=== PATIENT | female | born 1970 | race Caucasian/White ===

== ENCOUNTER → 2017-04-11 08:58 | Outpatient (CLI) | payer MEDICARE, SELFPAY ==
[2017-04-11 10:49] LABS: Hematocrit 50.9 % (37-47); Hemoglobin 16.9 g/dl (12.0-15.0); Mean Corp Hgb Conc 33.2 g/gl (32-36); Mean Corpuscular Hgb 32.6 pg (27.0-32.0); Mean Corpuscular Volume 98.3 fL (81-99); Platelet Count 154 K/mm3 (150-450); RBC Distribution Width CV 14.4 % (11.6-14.6); RBC Distribution Width SD 51.5 fl (35.1-43.9); Red Blood Count 5.18 M/mm3 (4.2-5.4); White Blood Count 7.1 K/mm3 (4.4-11.0)
[2017-04-11 10:51] LABS: Scan Indicated on CBC? Y/N NO
[2017-04-11 11:01] LABS: Vitamin B12 649 pg/mL (211-911); Vitamin D,25 Hydroxy 19.9 ng/mL (19.95-100.01)
[2017-04-11 11:17] LABS: ALB/GLOB Ratio 1.4 RATIO (0.9-2.4); AST(SGOT) 12 U/L (15-37); Alanine Aminotransfer ALT/SGPT 18 U/L (13-56); Albumin, Serum 3.9 g/dL (3.2-5.0); Alkaline Phosphatase 68 U/L (45-117); Anion Gap 10 (5-15); BUN 9 mg/dL (7-18); BUN/Creat Ratio 11.8 RATIO (10-20); Calcium,Total 8.5 mg/dL (8.5-10.1); Chloride 106 mmol/L (98-107); Creatinine, Serum 0.76 mg/dL (0.55-1.02); EST Glomerular Filtration Rate 86 mL/min (>60); Est Glom Filt Rate - Afr Amer 104 mL/min (>60); Globulin 2.8 g/dL (2.2-4.2); Glucose 77 mg/dL (74-106); Potassium 4.5 mmol/L (3.5-5.1); Protein, Total 6.7 g/dL (6.4-8.2); Sodium Level 142 mmol/L (136-145)
[2017-04-12 10:54] LABS: Free T3 2.9 pg/mL (2.18-3.98); T4 Free Direct 0.78 ng/dL (0.76-1.46)
== END ==
PROVIDERS: Family Provider Family Medicine; PCP Family Medicine; Visit Provider Internal Medicine Endocrinology, Diabetes & Metabolism
DX: E05.90 Thyrotoxicosis, unspecified without thyrotoxic crisis or storm (principal); E03.9 Hypothyroidism, unspecified; E53.8 Deficiency of other specified B group vitamins; E55.9 Vitamin D deficiency, unspecified; M79.7 Fibromyalgia
CPT/HCPCS: 36415; 80053; 82306; 82607; 84439; 84443; 84481; 85027

== ENCOUNTER → 2017-05-24 09:37 | Outpatient (CLI) | payer MEDICARE, SELFPAY ==
[2017-05-24 12:15] LABS: Absolute Lymphocyte Count 3.03 X10^3/ul (0.83-4.51); Absolute Neutrophil Count 6.4 X10^3/uL (2.0-7.7); Basophil# 0.04 X10^3/uL; Basophil% 0.4 % (0-1); Eosinophil# 0.04 X10^3/uL; Eosinophils% 0.4 % (0-5); Hematocrit 42.7 % (37-47); Hemoglobin 14.6 g/dl (12.0-15.0); Lymphocyte # 3.03 X10^3/ul (4.0); Lymphocyte % 30.7 % (19-41); Mean Corp Hgb Conc 34.2 g/gl (32-36); Mean Corpuscular Hgb 33.5 pg (27.0-32.0); Mean Corpuscular Volume 97.9 fL (81-99); Monocyte# 0.34 X10^3/uL; Monocyte% 3.4 % (0-10); Neutrophil % 64.9 % (47-70); Platelet Count 285 K/mm3 (150-450); RBC Distribution Width CV 13.5 % (11.6-14.6); RBC Distribution Width SD 47.6 fl (35.1-43.9); Red Blood Count 4.36 M/mm3 (4.2-5.4); White Blood Count 9.9 K/mm3 (4.4-11.0)
[2017-05-24 12:16] LABS: POSITIVE COUNT NO; POSITIVE DIFFERENTIAL NO; POSITIVE MORPHOLOGY NO
[2017-05-24 12:37] LABS: T4 Free Direct 1.04 ng/dL (0.76-1.46); Thyroid Stim Hormone (TSH) 0.68 uIU/mL (0.358-3.74)
== END ==
PROVIDERS: Family Provider Family Medicine; PCP Family Medicine; Visit Provider Internal Medicine Endocrinology, Diabetes & Metabolism
DX: E05.90 Thyrotoxicosis, unspecified without thyrotoxic crisis or storm (principal)
CPT/HCPCS: 36415; 84439; 84443; 84481; 85025

== ENCOUNTER → 2017-07-11 09:26 | Outpatient (CLI) | payer MEDICARE, SELFPAY ==
[2017-07-11 10:08] LABS: Absolute Lymphocyte Count 2.74 X10^3/ul (0.83-4.51); Absolute Neutrophil Count 4.4 X10^3/uL (2.0-7.7); Basophil# 0.02 X10^3/uL; Basophil% 0.3 % (0-1); Eosinophil# 0.08 X10^3/uL; Eosinophils% 1.1 % (0-5); Hematocrit 44.5 % (37-47); Hemoglobin 14.7 g/dl (12.0-15.0); Lymphocyte # 2.74 X10^3/ul (4.0); Lymphocyte % 36.9 % (19-41); Mean Corpuscular Hgb 32.1 pg (27.0-32.0); Mean Corpuscular Volume 97.2 fL (81-99); Mean Platelet Vol. 8.6 fl (6.2-12.0); Monocyte# 0.23 X10^3/uL; Monocyte% 3.1 % (0-10); Neutrophil # 4.35 X10^3/uL (2.7-7.7); Neutrophil % 58.6 % (47-70); Platelet Count 221 K/mm3 (150-450); RBC Distribution Width CV 12.9 % (11.6-14.6); RBC Distribution Width SD 45.7 fl (35.1-43.9); Red Blood Count 4.58 M/mm3 (4.2-5.4); White Blood Count 7.4 K/mm3 (4.4-11.0)
[2017-07-11 10:09] LABS: POSITIVE COUNT NO; POSITIVE DIFFERENTIAL NO; POSITIVE MORPHOLOGY NO
[2017-07-11 10:59] LABS: ALB/GLOB Ratio 1.1 RATIO (0.9-2.4); AST(SGOT) 14 U/L (15-37); Alanine Aminotransfer ALT/SGPT 13 U/L (13-56); Albumin, Serum 4.2 g/dL (3.2-5.0); Alkaline Phosphatase 67 U/L (45-117); Anion Gap 7 (5-15); BUN 6 mg/dL (7-18); BUN/Creat Ratio 7.7 RATIO (10-20); Chloride 107 mmol/L (98-107); Creatinine, Serum 0.78 mg/dL (0.55-1.02); EST Glomerular Filtration Rate 84 mL/min (>60); Est Glom Filt Rate - Afr Amer 102 mL/min (>60); Globulin 3.7 g/dL (2.2-4.2); Glucose 93 mg/dL (74-106); Protein, Total 7.9 g/dL (6.4-8.2); Sodium Level 141 mmol/L (136-145); T4 Free Direct 0.95 ng/dL (0.76-1.46); Thyroid Stim Hormone (TSH) 0.76 uIU/mL (0.358-3.74)
== END ==
PROVIDERS: Family Provider Family Medicine; PCP Family Medicine; Visit Provider Internal Medicine Endocrinology, Diabetes & Metabolism
DX: E05.90 Thyrotoxicosis, unspecified without thyrotoxic crisis or storm (principal)
CPT/HCPCS: 36415; 80053; 84439; 84443; 84481; 85025

== ENCOUNTER → 2017-08-17 09:34 | Outpatient (CLI) | payer MEDICARE, SELFPAY ==
--- NOTE | 2017-08-17 09:36 | MRI_ITS ---
STUDY: MRI LUMBAR SPINE WITHOUT CONTRAST REASON FOR EXAM: Female, 46 years old. Back pain and bilateral leg pain with numbness and tingling. TECHNIQUE: Standardized fat and water weighted pulse sequences were obtained in the sagittal and axial planes. COMPARISON: None FINDINGS: T11-T12: (Sagittal only). Normal endplates. Normal disc height, hydration and morphology. Normal central canal and bilateral intervertebral neural foramina. T12-L1: (Sagittal only). Normal endplates. Normal disc height, hydration and morphology. Normal central canal and bilateral intervertebral neural foramina. Normal lumbar lordosis. There is no substantial scoliosis. Normal conus medullaris that terminates at the lower L1 vertebral body level. L1-2: Anterior marginal spurs. Normal endplates. Normal disc height, hydration and morphology. Normal central canal and bilateral lateral recesses. Normal facet joints. Normal bilateral intervertebral neural foramina. L2-3: Normal endplates. Normal disc height, hydration and morphology. Normal bilateral facet joints. Normal central canal and bilateral lateral recesses. Normal bilateral intervertebral neural foramina. L3-4: Normal endplates. Normal disc height, hydration and morphology. Normal bilateral facet joints. Normal central canal and bilateral lateral recesses. Normal bilateral intervertebral neural foramina. L4-5: Normal endplates. Normal disc height, hydration and morphology. Normal bilateral facet joints. Normal central canal and bilateral lateral recesses. Normal bilateral intervertebral neural foramina. L5-S1: Pronounced disc space height narrowing. Mild Modic type I degenerative vertebral marrow edema underneath the posterior aspect of the vertebral endplates. Nearly grade 1 degenerative retrolisthesis of L5 on S1. Normal central canal. Normal bilateral lateral recesses. Mild asymmetric degenerative facet arthropathy. Normal bilateral intervertebral neural foramina. Normal visualized sacral ala. 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 Normal visualized paraspinous soft tissue structures. MRI/Spine Lumbar (Routine) IMPRESSION: 1. Pronounced L5-S1 disc space height narrowing with mild Modic type I degenerative vertebral marrow edema underneath the posterior aspect of the vertebral endplates and nearly grade 1 degenerative retrolisthesis of L5 on S1. 2. No MRI evidence of lumbar extruded disc fragment or spinal stenosis. 3. Signal dropout artifact in the posterior epidural space at the T11-T12 disc level and above. This is presumably an epidural wire device used for pain control. Electronically Signed: Stephane Gates MD at 14:50 EDT , Service support ,
== END ==
PROVIDERS: Family Provider Family Medicine; PCP Family Medicine; Visit Provider Anesthesiology Pain Medicine
DX: M48.07 Spinal stenosis, lumbosacral region (principal); M51.37 Other intervertebral disc degeneration, lumbosacral region
CPT/HCPCS: 72148

== ENCOUNTER 2017-11-07 10:22 | Emergency (ER) | payer MEDICARE, SELFPAY ==
[2017-11-07 10:23] VITALS: BP 119/68; PULSE 86; RESP 17; TEMP 37.1; O2SAT 97; BMI 23.5
--- NOTE | 2017-11-07 10:39 | ED.VISSUMM ---
- ER Visit Summary Date of Service: 11/07/17 Chief Complaint: Rash and itching. History of Present Illness: The patient is a 47 F states she believes she was bitten by X. For the last 2 weeks she has had intermittent rashes with itching. She also has painful raised rash on her right calf. She does shave her legs. She denies fever. She denies nausea, vomiting or anything like this before. She was seen by an urgent care and read placed on doxycycline in case this was secondary to a tick bite. She was also seen by her PCPs office and treated with Diflucan for vaginal yeast infection which she states is improving. Physical Examination: Well-appearing middle-age female. Vital signs are stable afebrile. She does not look septic toxic. She is no acute distress. H EENT exam unremarkable. Neck nontender no lymphadenopathy. Lungs clear to auscultation bilaterally. Heart regular rhythm no murmur. Abdomen soft nontender. Moving all 4 extremities. Neurovascular intact. On her right lateral calf there is red raised areas it could be a local allergic reaction to insect stings could also be infected hair follicles. There are no pustules. There is no lymphangitic streaking. It is not hot. She also has a rash on her left knee and anterior lower leg. In her right hand. Neurologically she is awake alert no focal deficits. Test Results: None Emergency Department Course and Treatment: The rash patient has is consistent with allergic reaction. There could also be infected hair follicles in her right calf. Treatment Plan: Treated with prednisone for the allergic reaction. Placed on Keflex for possible folliculitis. She will be referred to a local pipe fitter helper. Disposition: Discharge Impression: Acute rash secondary to allergic reaction Rule out folliculitis This note was generated with [employer] dictation software. It may contain incorrect words, spelling, and punctuation that were not noted in review of the chart prior to signing ED Disposition - Plan for ED Patient: Chief Complaint: Rash Referrals: Jim Panchal MD [Primary Care Provider] -
[2017-11-07 10:40] VITALS: BP 114/69; PULSE 80; RESP 14; TEMP 36.7; O2SAT 99
--- NOTE | 2017-11-07 10:42 | ED.DCSUM_ITS ---
- ER Visit Summary Date of Service: 11/07/17 Chief Complaint: Rash and itching. History of Present Illness: The patient is a 47 F states she believes she was bitten by X. For the last 2 weeks she has had intermittent rashes with itching. She also has painful raised rash on her right calf. She does shave her legs. She denies fever. She denies nausea, vomiting or anything like this before. She was seen by an urgent care and read placed on doxycycline in case this was secondary to a tick bite. She was also seen by her PCPs office and treated with Diflucan for vaginal yeast infection which she states is improving. Physical Examination: Well-appearing middle-age female. Vital signs are stable afebrile. She does not look septic toxic. She is no acute distress. H EENT exam unremarkable. Neck nontender no lymphadenopathy. Lungs clear to auscultation bilaterally. Heart regular rhythm no murmur. Abdomen soft nontender. Moving all 4 extremities. Neurovascular intact. On her right lateral calf there is red raised areas it could be a local allergic reaction to insect stings could also be infected hair follicles. There are no pustules. There is no lymphangitic streaking. It is not hot. She also has a rash on her left knee and anterior lower leg. In her right hand. Neurologically she is awake alert no focal deficits. Test Results: None Emergency Department Course and Treatment: The rash patient has is consistent with allergic reaction. There could also be infected hair follicles in her right calf. Treatment Plan: Treated with prednisone for the allergic reaction. Placed on Keflex for possible folliculitis. She will be referred to a local registration rep. Disposition: Discharge Impression: Acute rash secondary to allergic reaction Rule out folliculitis This note was generated with [employer] dictation software. It may contain incorrect words, spelling, and punctuation that were not noted in review of the chart prior to signing ED Disposition - Plan for ED Patient: Chief Complaint: Rash Referrals: Jim Panchal MD [Primary Care Provider] -
--- NOTE | 2017-11-07 10:42 | ED.DEP ---
ED Disposition - Plan for ED Patient: Disposition: Home or Assisted Living Chief Complaint: Rash Instructions: ED Bite Sting Insect Gen Allergic React Prescriptions: Cephalexin [Keflex] 500 mg PO Q6 10 Days cap Prednisone [Deltasone] 40 mg PO DAILY 7 Days tab Referrals: Jim Panchal MD [Primary Care Provider] - As Needed Vane To [NON-STAFF] - As soon as possible Additional Instructions: Rash is most likely secondary to allergic reaction. On her right lower leg disc redo infected hair follicles. For those reasons we will treat you both for an allergic reaction with the prednisone and for possible soft tissue infection with the Keflex. Follow-up with Dr. To the rubber vulcanizing machine operator.
[2017-11-07] MEDS: Cephalexin 250 MG Capsule 500 MG PO (10:53)
[2017-11-07] MEDS: predniSONE 20 MG Tablet 40 MG PO (10:54)
[2017-11-07 10:55] VITALS: BP 111/68; PULSE 76; RESP 14; O2SAT 98
== END 2017-11-07 11:02 | disposition home or self-care (01) ==
PROVIDERS: Emergency Provider Emergency Medicine; Family Provider Family Medicine; PCP Family Medicine
DX: T78.40XA Allergy, unspecified, initial encounter (principal); X58.XXXA Exposure to other specified factors, initial encounter; L73.9 Follicular disorder, unspecified; E03.9 Hypothyroidism, unspecified; Z79.899 Other long term (current) drug therapy; Z72.0 Tobacco use
CPT/HCPCS: 99283

== ENCOUNTER → 2017-11-22 13:24 | Outpatient (CLI) | payer MEDICARE, SELFPAY ==
--- NOTE | 2017-11-22 13:26 | RAD_ITS ---
STUDY: X-RAY - LUMBAR SPINE REASON FOR EXAM: Female, 47 years old. Low back pain TECHNIQUE: 4 view(s) of the lumbar spine were obtained. COMPARISON: None FINDINGS: Normal lumbar lordosis. There is no substantial scoliosis. There is a normal alignment of the vertebrae. There is a left sided subcutaneous implanted electronic device with leads extending into the spinal canal. This is likely an SCS (spinal cord stimulator). Loss of intervertebral disc height at L5-S1. Vacuum disc phenomenon at L5-S1. There is multilevel endplate spondylosis of the lumbar vertebrae. There is multi-level degenerative disc disease with multi-level disc space narrowing. There are atherosclerotic vascular calcifications. The soft tissue structures are unremarkable. RAD/L/S Spine Min 4 Views IMPRESSION: Degenerative changes of the spine, as detailed above. Electronically Signed: Marcin Greco MD at 17:02 EDT , Service support ,
== END ==
PROVIDERS: Family Provider Family Medicine; PCP Family Medicine; Referring Provider Orthopaedic Surgery; Visit Provider Orthopaedic Surgery
DX: M47.896 Other spondylosis, lumbar region (principal); M51.36 Other intervertebral disc degeneration, lumbar region
CPT/HCPCS: 72110

== ENCOUNTER → 2017-12-08 10:18 | Outpatient (CLI) | payer MEDICARE, SELFPAY ==
[2017-12-08 12:13] LABS: Absolute Lymphocyte Count 3.16 X10^3/ul (0.83-4.51); Absolute Neutrophil Count 4.4 X10^3/uL (2.0-7.7); Basophil# 0.03 X10^3/uL; Basophil% 0.4 % (0-1); Eosinophil# 0.13 X10^3/uL; Eosinophils% 1.6 % (0-5); Hematocrit 42.7 % (37-47); Hemoglobin 14.6 g/dl (12.0-15.0); Lymphocyte # 3.16 X10^3/ul (4.0); Lymphocyte % 38.9 % (19-41); Mean Corp Hgb Conc 34.2 g/gl (32-36); Mean Corpuscular Hgb 33.4 pg (27.0-32.0); Mean Corpuscular Volume 97.7 fL (81-99); Mean Platelet Vol. 8.5 fl (6.2-12.0); Monocyte# 0.36 X10^3/uL; Monocyte% 4.4 % (0-10); Neutrophil # 4.44 X10^3/uL (2.7-7.7); Neutrophil % 54.6 % (47-70); Platelet Count 291 K/mm3 (150-450); RBC Distribution Width CV 13.2 % (11.6-14.6); RBC Distribution Width SD 46.3 fl (35.1-43.9); Red Blood Count 4.37 M/mm3 (4.2-5.4); White Blood Count 8.1 K/mm3 (4.4-11.0)
[2017-12-08 12:28] LABS: POSITIVE COUNT NO; POSITIVE DIFFERENTIAL NO; POSITIVE MORPHOLOGY NO
[2017-12-08 12:29] LABS: ALB/GLOB Ratio 1.1 RATIO (0.9-2.4); AST(SGOT) 18 U/L (15-37); Alanine Aminotransfer ALT/SGPT 27 U/L (13-56); Alkaline Phosphatase 82 U/L (45-117); Anion Gap 8 (5-15); BUN 9 mg/dL (7-18); BUN/Creat Ratio 11.7 RATIO (10-20); Calcium,Total 8.9 mg/dL (8.5-10.1); Chloride 104 mmol/L (98-107); Creatinine, Serum 0.77 mg/dL (0.55-1.02); EST Glomerular Filtration Rate 85 mL/min (>60); Est Glom Filt Rate - Afr Amer 103 mL/min (>60); Free T3 3.6 pg/mL (2.18-3.98); Globulin 3.5 g/dL (2.2-4.2); Glucose 86 mg/dL (74-106); Potassium 4.1 mmol/L (3.5-5.1); Protein, Total 7.5 g/dL (6.4-8.2); Sodium Level 141 mmol/L (136-145); T4 Free Direct 0.86 ng/dL (0.76-1.46); Thyroid Stim Hormone (TSH) 1.16 uIU/mL (0.358-3.74)
[2017-12-08 12:31] LABS: Vitamin B12 805 pg/mL (211-911); Vitamin D,25 Hydroxy 17.8 ng/mL (29.95-100.01)
[2017-12-12 20:07] LABS: HCV Quant. RNA PCR HCV Not Detected IU/mL (.)
== END ==
PROVIDERS: Family Provider Family Medicine; PCP Family Medicine; Referring Provider Family Medicine; Visit Provider Family Medicine
DX: B19.20 Unspecified viral hepatitis C without hepatic coma (principal); E03.9 Hypothyroidism, unspecified; E53.8 Deficiency of other specified B group vitamins; E55.9 Vitamin D deficiency, unspecified
CPT/HCPCS: 80053; 82306; 82607; 84439; 84443; 84481; 85025; 87522

== ENCOUNTER → 2018-01-16 12:13 | Outpatient (CLI) | payer MEDICARE, SELFPAY ==
[2018-01-16 14:46] LABS: Absolute Lymphocyte Count 3.75 X10^3/ul (0.83-4.51); Absolute Neutrophil Count 3.6 X10^3/uL (2.0-7.7); Basophil# 0.02 X10^3/uL; Basophil% 0.3 % (0-1); Eosinophils% 1.3 % (0-5); Erythrocyte Sedimentation Rate 17 mm/hr (0-20); Hematocrit 40.4 % (37-47); Hemoglobin 13.6 g/dl (12.0-15.0); Lymphocyte # 3.75 X10^3/ul (4.0); Lymphocyte % 47.4 % (19-41); Mean Corp Hgb Conc 33.7 g/gl (32-36); Mean Corpuscular Hgb 32.3 pg (27.0-32.0); Mean Platelet Vol. 8.8 fl (6.2-12.0); Monocyte# 0.39 X10^3/uL; Monocyte% 4.9 % (0-10); Neutrophil # 3.64 X10^3/uL (2.7-7.7); Platelet Count 306 K/mm3 (150-450); RBC Distribution Width CV 12.5 % (11.6-14.6); Red Blood Count 4.21 M/mm3 (4.2-5.4); White Blood Count 7.9 K/mm3 (4.4-11.0)
[2018-01-16 14:47] LABS: POSITIVE COUNT NO; POSITIVE DIFFERENTIAL NO; POSITIVE MORPHOLOGY NO
[2018-01-16 15:17] LABS: ALB/GLOB Ratio 1.3 RATIO (0.9-2.4); AST(SGOT) 17 U/L (15-37); Alanine Aminotransfer ALT/SGPT 20 U/L (13-56); Albumin, Serum 4.1 g/dL (3.2-5.0); Alkaline Phosphatase 84 U/L (45-117); Anion Gap 8 (5-15); BUN 8 mg/dL (7-18); BUN/Creat Ratio 12.4 RATIO (10-20); CRP 7.73 mg/L (0.0-3.0); Calcium,Total 8.5 mg/dL (8.5-10.1); Chloride 106 mmol/L (98-107); Creatinine, Serum 0.64 mg/dL (0.55-1.02); EST Glomerular Filtration Rate 104 mL/min (>60); Est Glom Filt Rate - Afr Amer 126 mL/min (>60); Globulin 3.1 g/dL (2.2-4.2); Glucose 79 mg/dL (74-106); Protein, Total 7.2 g/dL (6.4-8.2); Sodium Level 140 mmol/L (136-145)
[2018-01-20 03:06] LABS: Alternaria alternata <0.10 kU/L (Class 0); Aspergillus fumigatus <0.10 kU/L (Class 0); Bahia Grass <0.10 kU/L (Class 0); Beef <0.10 kU/L (Class 0); Bermuda Grass <0.10 kU/L (Class 0); Bluegrass, Kentucky <0.10 kU/L (Class 0); Cat Hair/Dander, Standard <0.10 kU/L (Class 0); Cedar, Mountain <0.10 kU/L (Class 0); Cladosporium herbarum <0.10 kU/L (Class 0); Cockroach, American <0.10 kU/L (Class 0); Corn <0.10 kU/L (Class 0); D farinae Mite <0.10 kU/L (Class 0); D pteronyssinus <0.10 kU/L (Class 0); Dog Epithelia <0.10 kU/L (Class 0); Egg, Whole <0.10 kU/L (Class 0); Elm, American White <0.10 kU/L (Class 0); Hazelnut Tree <0.10 kU/L (Class 0); Hickory, White <0.10 kU/L (Class 0); Johnson Grass <0.10 kU/L (Class 0); Maple/Box Elder <0.10 kU/L (Class 0); Milk (Cow) <0.10 kU/L (Class 0); Mucor racemosus <0.10 kU/L (Class 0); Mugwort <0.10 kU/L (Class 0); Mulberry, White <0.10 kU/L (Class 0); Nettle <0.10 kU/L (Class 0); Oak, White <0.10 kU/L (Class 0); Peanut <0.10 kU/L (Class 0); Penicillium chrysogen <0.10 kU/L (Class 0); Pigweed, Rough <0.10 kU/L (Class 0); Plantain, English <0.10 kU/L (Class 0); Pork <0.10 kU/L (Class 0); Ragweed, Short/Common <0.10 kU/L (Class 0); Sheep Sorrel(Dock) <0.10 kU/L (Class 0); Soybean <0.10 kU/L (Class 0); Stemphylium herbarum <0.10 kU/L (Class 0); Sweet Gum <0.10 kU/L (Class 0); Sycamore, American <0.10 kU/L (Class 0); Wheat <0.10 kU/L (Class 0)
[2018-01-20 08:32] LABS: Chocolate <0.10 kU/L (Class 0)
== END ==
PROVIDERS: Family Provider Family Medicine; PCP Family Medicine; Visit Provider Family Medicine
DX: R21 Rash and other nonspecific skin eruption (principal); L29.9 Pruritus, unspecified
CPT/HCPCS: 36415; 80053; 85025; 85652; 86003; 86005; 86140

== ENCOUNTER → 2018-02-13 11:00 | Outpatient (CLI) | payer MEDICARE, SELFPAY ==
[2018-02-13 11:45] LABS: Absolute Lymphocyte Count 3.69 X10^3/ul (0.83-4.51); Absolute Neutrophil Count 5.6 X10^3/uL (2.0-7.7); Basophil# 0.03 X10^3/uL; Basophil% 0.3 % (0-1); Eosinophil# 0.14 X10^3/uL; Eosinophils% 1.4 % (0-5); Hematocrit 39.6 % (37-47); Hemoglobin 13.3 g/dl (12.0-15.0); Lymphocyte # 3.69 X10^3/ul (4.0); Lymphocyte % 36.9 % (19-41); Mean Corp Hgb Conc 33.6 g/gl (32-36); Mean Corpuscular Hgb 32.4 pg (27.0-32.0); Mean Corpuscular Volume 96.4 fL (81-99); Mean Platelet Vol. 8.3 fl (6.2-12.0); Neutrophil # 5.61 X10^3/uL (2.7-7.7); Neutrophil % 56.2 % (47-70); Platelet Count 295 K/mm3 (150-450); RBC Distribution Width SD 44.4 fl (35.1-43.9); Red Blood Count 4.11 M/mm3 (4.2-5.4)
[2018-02-13 11:46] LABS: POSITIVE COUNT NO; POSITIVE DIFFERENTIAL NO; POSITIVE MORPHOLOGY NO
[2018-02-13 12:17] LABS: T3 Total - Triiodothyronine 1.52 ng/mL (0.6-1.81)
[2018-02-13 12:28] LABS: ALB/GLOB Ratio 1.2 RATIO (0.9-2.4); AST(SGOT) 16 U/L (15-37); Alanine Aminotransfer ALT/SGPT 24 U/L (13-56); Albumin, Serum 3.7 g/dL (3.2-5.0); Alkaline Phosphatase 73 U/L (45-117); Anion Gap 10 (5-15); BUN 9 mg/dL (7-18); BUN/Creat Ratio 13.2 RATIO (10-20); Calcium,Total 8.3 mg/dL (8.5-10.1); Chloride 105 mmol/L (98-107); Creatinine, Serum 0.68 mg/dL (0.55-1.02); EST Glomerular Filtration Rate 98 mL/min (>60); Est Glom Filt Rate - Afr Amer 118 mL/min (>60); Globulin 3.2 g/dL (2.2-4.2); Glucose 79 mg/dL (74-106); Potassium 3.9 mmol/L (3.5-5.1); Protein, Total 6.9 g/dL (6.4-8.2); Sodium Level 142 mmol/L (136-145); T4 Free Direct 0.88 ng/dL (0.76-1.46); Thyroid Stim Hormone (TSH) 0.66 uIU/mL (0.358-3.74)
[2018-02-15 10:02] LABS: Free T3 4.1 pg/mL (2.18-3.98)
--- OUTSIDE RECORDS SUMMARY | 2018-05-18 00:16 | XMS RPT_ITS ---
:1970 Author Organization OHIP Support Name Relationship Address Phone D Unavailable Unavailable Unavailable JORGE, SUJANE Unavailable [address] + [place] [address] D Unavailable Unavailable Unavailable JORGE, SUJANE Unavailable [address] + [place] [address] D Unavailable Unavailable Unavailable JORGE, SUJANE Unavailable [address] + [place] [address] D Unavailable Unavailable Unavailable JROGE, SUJANE Unavailable [address] + [place] [address] D Unavailable Unavailable Unavailable JORGE, SUJANE Unavailable [address] + [place] [address] D Unavailable Unavailable Unavailable JORGE, SUJANE Unavailable [address] + [place] [address] D Unavailable Unavailable Unavailable JORGE, SUJANE Unavailable [address] + [place] [address] NONE Unavailable Unavailable + D Unavailable Unavailable Unavailable JORGE, SUJANE Unavailable [address] + [place] [address] D Unavailable Unavailable Unavailable JORGE, SUJANE Unavailable [address] + [place] [address] D Unavailable Unavailable Unavailable JORGE, SUJANE Unavailable [address] + [place] [address] Care Team Providers Name Role Phone PROVIDER, UNKNOWN Admitting Unavailable PROVIDER, UNKNOWN Attending Unavailable JIMBO JASSO Referring Unavailable Teagan Winston Attending Unavailable Teagan Winston Referring Unavailable Matty Panchal Primary Care Unavailable Teagan Winston Attending Unavailable Raghunathan, Teagan N. Referring Unavailable Ransan francisco, Christopher Primary Care Unavailable Raghunathan, Teagan N. Attending Unavailable Raghunathan, Teagan N. Referring Unavailable [facility]ansan francisco, [facility] Unavailable Raghunathan, Teagan N. Attending Unavailable Raghunathan, Teagan N. Referring Unavailable Ransan francisco, [facility] Unavailable Víctor Berkowitz Attending Unavailable Basalstephen, Ayman Referring Unavailable Ransan francisco, [facility] Unavailable Ransan francisco, [facility] Unavailable Bill Hernandez Attending Unavailable Lorraine Griffiths Attending Unavailable Ranney, Christmiraer Referring Unavailable Lorraine Griffiths Attending Unavailable Griffiths, Lorraine Referring Unavailable [facility] Unavailable Ranosmel, Christmiraer Attending Unavailable Ranney, Christopher Referring Unavailable Ransan francisco, [facility] Unavailable Ranosmel, Christmiraer Attending Unavailable Ransan francisco, [facility] Unavailable PROBLEMS PROBLEMS DATE TYPE CONDITION / CODE ATTENDING STATUS SOURCE 02/13/2018 Unknown E05.90 - Raghunathan, Active [place] Thyrotoxicosis, Teagan N. [facility] Hospital without Repository thyrotoxic crisis or storm / E05.90(ICD-10) 11/23/2017 Unknown M54.5 - Low back Lorraine Griffiths Active [place] [facility] M54.5(ICD-10) Hospital Repository PROCEDURES PROCEDURES No Procedure Records FoundRESULTS RESULTS CBC W/DIFF, AUTOMATED Collected: 02/13/2018 Status: F Source: [place] 11:07 AM [facility] REPOSITORY TYPE CODE TESTS RESULT OUT OF RANGE REFERENCE UNITS LAB L100.1000 4.4-11.0 K/mm3 Normal WBC 10.0 LAB L100.1200 4.2-5.4 M/mm3 Low RBC 4.11 LAB L100.1300 12.0-15.0 g/dl Normal HGB 13.3 LAB L100.1400 37-47 % Normal HCT 39.6 LAB L100.1500 81-99 fL Normal MCV 96.4 LAB L100.1600 27.0-32.0 pg High MCH 32.4 LAB L100.1700 32-36 g/gl Normal MCHC 33.6 LAB L100.1810 11.6-14.6 % Normal RDW CV 13.0 LAB L100.1820 35.1-43.9 fl High RDW SD 44.4 LAB L100.1900 150-450 K/mm3 Normal PLT 295 LAB L100.2000 6.2-12.0 fl Normal MPV 8.3 LAB L100.2100 47-70 % Normal NEUT% 56.2 LAB L100.2200 19-41 % Normal LY% 36.9 LAB L100.2300 0-10 % Normal MONO% 5.0 LAB L100.2400 0-5 % Normal EO% 1.4 LAB L100.2500 0-1 % Normal BASO% 0.3 LAB L100.2550 0.0-0.9 % Normal IM GRAN % 0.200 Result Comment: IG% - Immature Granulocytes (promyelocytes, myelocytes and metamyelocytes) > 1% indicates that a LEFT SHIFT is Present. LAB L100.2620 2.0-7.7 X10 3/uL Normal Absolute Neut 5.6 LAB L100.2720 0.83-4.51 X10 3/ul Normal Absolute Lymph 3.69 Performed By: #### L100.0100 #### [facility] [address] [place], [place], [address] T3 TOTAL - TRIIODOTHYRONINE Collected: 02/13/2018 Status: F Source: [place] 11:07 [facility] [place] TYPE CODE TESTS RESULT OUT OF RANGE REFERENCE UNITS LAB L501.9186 0.6-1.81 ng/mL Normal T3 Total 1.52 Performed By: #### L501.9186 #### [facility] [address] [place], [address] COMPREHENSIVE METABOLIC Collected: 02/13/2018 Status: F Source: [facility] 11:07 [facility] [place] Order Comment: PLEASE ADD T3F TO BLOOD FROM 02-13-18 MG4 2 O Has Patient had X-rays with Contrast this admission? N Is Patient on Heparin? N TYPE CODE TESTS RESULT OUT OF RANGE REFERENCE UNITS LAB L501.0100 74-106 mg/dL Normal GLU 79 Result Comment: Please note revised GLUCOSE reference range effective 2017. LAB L501.1000 7-18 mg/dL Normal BUN 9 LAB L501.1100 0.55-1.02 mg/dL Normal CREAT,SERUM 0.68 Result Comment: The validity of the calculated GFR AND GFRAA in patients over 70 years has not been determined. Clinical correlation is essential. LAB L501.1110 >60 mL/min Normal EST GFR 98 Result Comment: Non- GFR Calc LAB L501.1115 >60 mL/min Normal EST GFR - AA 118 Result Comment: GFR Calc LAB L501.1300 10-20 RATIO Normal BUN/CRE 13.2 LAB L501.1500 6.4-8.2 g/dL T Normal PROT 6.9 LAB L501.1800 3.2-5.0 g/dL Normal ALB 3.7 LAB L501.1950 2.2-4.2 g/dL Normal GLOB 3.2 LAB L501.2000 0.9-2.4 RATIO Normal A/G 1.2 LAB L501.2200 8.5-10.1 mg/dL Low CA 8.3 LAB L501.4100 15-37 U/L Normal AST 16 LAB L501.4305 45-117 U/L Normal ALK P 73 LAB L501.4405 13-56 U/L Normal ALT 24 LAB L501.4600 0.20-1.00 mg/dL T Normal BILI 0.30 LAB L501.5300 136-145 mmol/L NA Normal 142 LAB L501.5600 3.5-5.1 mmol/L K Normal 3.9 LAB L501.5900 98-107 mmol/L CL Normal 105 LAB L501.6100 21.0-32.0 mmol/L Normal CO2 27.0 LAB L501.6200 5-15 Normal GAP 10 Performed By: #### L500.4050, L501.9520, L506.0400, L501.50619 #### [facility] [address] [place], [place], [address] THYROID STIM HORMONE Collected: 02/13/2018 Status: F Source: [place] (TSH) 11:07 AM [facility] REPOSITORY Order Comment: PLEASE ADD T3F TO BLOOD FROM 02-13-18 MG4 2 O Has Patient had X-rays with Contrast this admission? N Is Patient on Heparin? N TYPE CODE TESTS RESULT OUT OF RANGE REFERENCE UNITS LAB L501.9520 0.358-3.74 uIU/mL Normal TSH 0.66 Performed By: #### L500.4050, L501.9520, L506.0400, L501.90892 #### [facility] [address] [place], [address] T4 FREE DIRECT Collected: 02/13/2018 Status: F Source: [place] 11:07 AM [facility] REPOSITORY Order Comment: PLEASE ADD T3F TO BLOOD FROM 02-13-18 MG4 2 O Has Patient had X-rays with Contrast this admission? N Is Patient on Heparin? N TYPE CODE TESTS RESULT OUT OF RANGE REFERENCE UNITS LAB L506.0400 0.76-1.46 ng/dL Normal T4 FREE 0.88 DIRECT Performed By: #### L500.4050, L501.9520, L506.0400, L501.89830 #### [facility] [address] [place], [address] FREE T3 Collected: 02/13/2018 Status: F Source: [place] 11:07 AM [facility] REPOSITORY Order Comment: PLEASE ADD T3F TO BLOOD FROM 02-13-18 MG4 2 O Has Patient had X-rays with Contrast this admission? N Is Patient on Heparin? N TYPE CODE TESTS RESULT OUT OF RANGE REFERENCE UNITS LAB L501.82223 2.18-3.98 pg/mL High FREE T3 4.1 Performed By: #### L500.4050, L501.9520, L506.0400, L501.74835 #### [facility] [address] [place], [address] ERYTHROCYTE SED RATE Collected: 01/16/2018 Status: F Source: [place] 12:14 PM [facility] REPOSITORY TYPE CODE TESTS RESULT OUT OF RANGE REFERENCE UNITS LAB L102.0000 0-20 mm/hr Normal SED RATE 17 Performed By: #### L101.9900, L100.0100 #### [facility] [address] [place], [address] CBC W/DIFF, AUTOMATED Collected: 01/16/2018 Status: F Source: [place] 12:14 PM [facility] REPOSITORY TYPE CODE TESTS RESULT OUT OF RANGE REFERENCE UNITS LAB L100.1000 4.4-11.0 K/mm3 Normal WBC 7.9 LAB L100.1200 4.2-5.4 M/mm3 Normal RBC 4.21 LAB L100.1300 12.0-15.0 g/dl Normal HGB 13.6 LAB L100.1400 37-47 % Normal HCT 40.4 LAB L100.1500 81-99 fL Normal MCV 96.0 LAB L100.1600 27.0-32.0 pg High MCH 32.3 LAB L100.1700 32-36 g/gl Normal MCHC 33.7 LAB L100.1810 11.6-14.6 % Normal RDW CV 12.5 LAB L100.1820 35.1-43.9 fl Normal RDW SD 43.0 LAB L100.1900 150-450 K/mm3 Normal PLT 306 LAB L100.2000 6.2-12.0 fl Normal MPV 8.8 LAB L100.2100 47-70 % Low NEUT% 46.0 LAB L100.2200 19-41 % High LY% 47.4 LAB L100.2300 0-10 % Normal MONO% 4.9 LAB L100.2400 0-5 % Normal EO% 1.3 LAB L100.2500 0-1 % Normal BASO% 0.3 LAB L100.2550 0.0-0.9 % Normal IM GRAN % 0.100 Result Comment: IG% - Immature Granulocytes (promyelocytes, myelocytes and metamyelocytes) > 1% indicates that a LEFT SHIFT is Present. LAB L100.2620 2.0-7.7 X10 3/uL Normal Absolute Neut 3.6 LAB L100.2720 0.83-4.51 X10 3/ul Normal Absolute Lymph 3.75 Performed By: #### L101.9900, L100.0100 #### [facility] [address] [place], [address] COMPREHENSIVE METABOLIC Collected: 01/16/2018 Status: F Source: [place] 12:14 PM [facility] REPOSITORY TYPE CODE TESTS RESULT OUT OF RANGE REFERENCE UNITS LAB L501.0100 74-106 mg/dL Normal GLU 79 Result Comment: Please note revised GLUCOSE reference range effective 2017. LAB L501.1000 7-18 mg/dL Normal BUN 8 LAB L501.1100 0.55-1.02 mg/dL Normal CREAT,SERUM 0.64 Result Comment: The validity of the calculated GFR AND GFRAA in patients over 70 years has not been determined. Clinical correlation is essential. LAB L501.1110 >60 mL/min Normal EST GFR 104 Result Comment: Non- GFR Calc LAB L501.1115 >60 mL/min Normal EST GFR - AA 126 Result Comment: GFR Calc LAB L501.1300 10-20 RATIO Normal BUN/CRE 12.4 LAB L501.1500 6.4-8.2 g/dL T Normal PROT 7.2 LAB L501.1800 3.2-5.0 g/dL Normal ALB 4.1 LAB L501.1950 2.2-4.2 g/dL Normal GLOB 3.1 LAB L501.2000 0.9-2.4 RATIO Normal A/G 1.3 LAB L501.2200 8.5-10.1 mg/dL CA Normal 8.5 LAB L501.4100 15-37 U/L Normal AST 17 LAB L501.4305 45-117 U/L Normal ALK P 84 LAB L501.4405 13-56 U/L Normal ALT 20 LAB L501.4600 0.20-1.00 mg/dL T Normal BILI 0.30 LAB L501.5300 136-145 mmol/L NA Normal 140 LAB L501.5600 3.5-5.1 mmol/L K Normal 4.0 LAB L501.5900 98-107 mmol/L CL Normal 106 LAB L501.6100 21.0-32.0 mmol/L Normal CO2 26.0 LAB L501.6200 5-15 Normal GAP 8 Performed By: #### L500.4050, L501.6710 #### [facility] [address] [place], [address] CRP Collected: 01/16/2018 Status: F Source: [place] 12:14 PM [facility] REPOSITORY TYPE CODE TESTS RESULT OUT OF RANGE REFERENCE UNITS LAB L501.6710 0.0-3.0 mg/L High 7.73 C-REACTIVE PROT Result Comment: C-Reactive Protein (CRP) provides useful information for the diagnosis, therapy and monitoring of inflammatory processes and associated diseases. For the evaluation of Relative Risk for Cardiovascular Disease, a High Sensitivity CRP (HSCRP) should be ordered. Performed By: #### L500.4050, L501.6710 #### [facility] [address] [place], [address] ALLERGEN, RAST FOOD Collected: 01/16/2018 Status: F Source: [place] PROFILE 12:14 PM [facility] REPOSITORY Order Comment: Test(s) [id number] Cockroach, [place]i; [id number] Lynn, White; [id number] Sweet Gum were developed and had performance characteristics determined by [employer]. These tests have not been cleared or approved by the U.S. Food and Drug Administration. The FDA has determined that such clearance or approval is not necessary. These tests are used for clinical purposes. These should not be regarded as investigational or for research. TYPE CODE TESTS RESULT OUT OF RANGE REFERENCE UNITS LAB L5500.3002 Class 0 kU/L MILK Normal (COW) <0.10 LAB L5500.3004 Class 0 kU/L WHEAT Normal <0.10 LAB L5500.3008 Class 0 kU/L CORN Normal <0.10 LAB L5500.3013 Class 0 kU/L Normal PEANUT <0.10 LAB L5500.3014 Class 0 kU/L Normal SOYBEAN <0.10 LAB L5500.3026 Class 0 kU/L PORK Normal <0.10 LAB L5500.3027 Class 0 kU/L BEEF Normal <0.10 LAB L5500.3052 Class 0 kU/L Normal CHOCOLATE <0.10 Result Comment: Performed at: [address] [id number] [employer]: Nneka Nova MD, Phone: [phone] LAB L5500.324 Class 0 kU/L Normal EGG, <0.10 WHOLE LAB L5500.3902 . Normal Negative FISH/SHELL MIX Result Comment: Allergens in this mix are: Blue mussel Fish [place] Shrimp Tuna LAB L5500.8100 . Normal RAST COMMENT Comment Result Comment: Levels of Specific IgE Class Description of Class ----- < 0.10 0 Negative 0.10 - 0.31 0/I Equivocal/Low 0.32 - 0.55 I Low 0.56 - 1.40 II Moderate 1.41 - 3.90 III High 3.91 - 19.00 IV Very High 19.01 - 100.00 V Very High >100.00 Very High Performed By: #### L5500.0400, L5500.0600 #### [facility] (refer to report for specific site) refer to report for address and phone number ALLERGENS, ZONE 8 Collected: 01/16/2018 Status: F Source: [place] 12:14 PM [facility] REPOSITORY Order Comment: Test(s) [id number] Cockroach, [place]i; [id number] Lynn, White; [id number]-MvW Sweet Gum were developed and had performance characteristics determined by [facility]. These tests have not been cleared or approved by the U.S. Food and Drug Administration. The FDA has determined that such clearance or approval is not necessary. These tests are used for clinical purposes. These should not be regarded as investigational or for research. TYPE CODE TESTS RESULT OUT OF REFERENCE UNITS RANGE LAB L5500.1001 Class 0 kU/L D PTERONYSSINUS Normal <0.10 LAB L5500.1002 Class 0 kU/L D FARINAE MITE Normal <0.10 LAB L5500.2000 Class 0 kU/L CAT HAIR/DANDER Normal <0.10 LAB L5500.2002 Class 0 kU/L DOG EPITHELIA Normal <0.10 LAB L5500.4002 Class 0 kU/L BERMUDA GRASS Normal <0.10 LAB L5500.4008 Class 0 kU/L BLUEGRASS, [place] Normal <0.10 LAB L5500.4010 Class 0 kU/L MELINA GRASS Normal <0.10 LAB L5500.4017 Class 0 kU/L BAHIA GRASS Normal <0.10 LAB L5500.5001 Class 0 kU/L PEN CHRYSOGEN Normal <0.10 LAB L5500.5002 Class 0 kU/L CLADOSPOR HERB Normal <0.10 LAB L5500.5003 Class 0 kU/L ASPERGILLUS FUM Normal <0.10 LAB L5500.5004 Class 0 kU/L MUCOR RACEMOSUS Normal <0.10 LAB L5500.5006 Class 0 kU/L A. ALTERNATA Normal <0.10 LAB L5500.5010 Class 0 kU/L STEMPHYLIUM HER Normal <0.10 LAB L5500.6007 Class 0 kU/L OAK, WHITE Normal <0.10 LAB L5500.6008 Class 0 kU/L ELM,AMER WHITE Normal <0.10 LAB L5500.6018 Class 0 kU/L MAPLE/BOX ELDER Normal <0.10 LAB L5500.6040 Class 0 kU/L HAZELNUT TREE Normal <0.10 LAB L5500.6041 Class 0 kU/L HICKORY, WHITE Normal <0.10 LAB L5500.6061 Class 0 kU/L SYCAMORE, AMER Normal <0.10 LAB L5500.6100 Class 0 kU/L MULBERRY, WHITE Normal <0.10 LAB L5500.6211 Class 0 kU/L SWEET GUM Normal <0.10 LAB L5500.6225 Class 0 kU/L CEDAR, MOUNTAIN Normal <0.10 LAB L5500.7001 Class 0 kU/L RAGWEED SH/COM Normal <0.10 LAB L5500.7006 Class 0 kU/L MUGWORT Normal <0.10 LAB L5500.7009 Class 0 kU/L PLANTAIN,ENGLSH Normal <0.10 LAB L5500.7014 Class 0 kU/L PIGWEED, ROUGH Normal <0.10 LAB L5500.7018 Class 0 kU/L SHEEP SORREL Normal <0.10 LAB L5500.7020 Class 0 kU/L NETTLE Normal <0.10 LAB L5500.7100 Class 0 kU/L COCKROACH,AMER Normal <0.10 Performed By: #### L5500.0400, L5500.0600 #### [facility] (refer to report for specific site) refer to report for address and phone number CBC W/DIFF, AUTOMATED Collected: 12/08/2017 Status: F Source: [place] 10:24 AM [facility] REPOSITORY TYPE CODE TESTS RESULT OUT OF RANGE REFERENCE UNITS LAB L100.1000 4.4-11.0 K/mm3 Normal WBC 8.1 LAB L100.1200 4.2-5.4 M/mm3 Normal RBC 4.37 LAB L100.1300 12.0-15.0 g/dl Normal HGB 14.6 LAB L100.1400 37-47 % Normal HCT 42.7 LAB L100.1500 81-99 fL Normal MCV 97.7 LAB L100.1600 27.0-32.0 pg High MCH 33.4 LAB L100.1700 32-36 g/gl Normal MCHC 34.2 LAB L100.1810 11.6-14.6 % Normal RDW CV 13.2 LAB L100.1820 35.1-43.9 fl High RDW SD 46.3 LAB L100.1900 150-450 K/mm3 Normal PLT 291 LAB L100.2000 6.2-12.0 fl Normal MPV 8.5 LAB L100.2100 47-70 % Normal NEUT% 54.6 LAB L100.2200 19-41 % Normal LY% 38.9 LAB L100.2300 0-10 % Normal MONO% 4.4 LAB L100.2400 0-5 % Normal EO% 1.6 LAB L100.2500 0-1 % Normal BASO% 0.4 LAB L100.2550 0.0-0.9 % Normal IM GRAN % 0.100 Result Comment: IG% - Immature Granulocytes (promyelocytes, myelocytes and metamyelocytes) > 1% indicates that a LEFT SHIFT is Present. LAB L100.2620 2.0-7.7 X10 3/uL Normal Absolute Neut 4.4 LAB L100.2720 0.83-4.51 X10 3/ul Normal Absolute Lymph 3.16 Performed By: #### L100.0100, L500.4050, L501.09189, L501.9520, L506.0400, L503.0105, L506.1000 #### [facility] [address] [place], [place], [address] COMPREHENSIVE METABOLIC Collected: 12/08/2017 Status: F Source: [place] 10:24 AM [facility] REPOSITORY TYPE CODE TESTS RESULT OUT OF RANGE REFERENCE UNITS LAB L501.0100 74-106 mg/dL Normal GLU 86 Result Comment: Please note revised GLUCOSE reference range effective 2017. LAB L501.1000 7-18 mg/dL Normal BUN 9 LAB L501.1100 0.55-1.02 mg/dL Normal CREAT,SERUM 0.77 Result Comment: The validity of the calculated GFR AND GFRAA in patients over 70 years has not been determined. Clinical correlation is essential. LAB L501.1110 >60 mL/min Normal EST GFR 85 Result Comment: Non- GFR Calc LAB L501.1115 >60 mL/min Normal EST GFR - AA 103 Result Comment: GFR Calc LAB L501.1300 10-20 RATIO Normal BUN/CRE 11.7 LAB L501.1500 6.4-8.2 g/dL T Normal PROT 7.5 LAB L501.1800 3.2-5.0 g/dL Normal ALB 4.0 LAB L501.1950 2.2-4.2 g/dL Normal GLOB 3.5 LAB L501.2000 0.9-2.4 RATIO Normal A/G 1.1 LAB L501.2200 8.5-10.1 mg/dL CA Normal 8.9 LAB L501.4100 15-37 U/L Normal AST 18 LAB L501.4305 45-117 U/L Normal ALK P 82 LAB L501.4405 13-56 U/L Normal ALT 27 LAB L501.4600 0.20-1.00 mg/dL T Normal BILI 0.30 LAB L501.5300 136-145 mmol/L NA Normal 141 LAB L501.5600 3.5-5.1 mmol/L K Normal 4.1 LAB L501.5900 98-107 mmol/L CL Normal 104 LAB L501.6100 21.0-32.0 mmol/L Normal CO2 29.0 LAB L501.6200 5-15 Normal GAP 8 Performed By: #### L100.0100, L500.4050, L501.39334, L501.9520, L506.0400, L503.0105, L506.1000 #### [facility] [address] [place], [address] FREE T3 Collected: 12/08/2017 Status: F Source: [place] 10:24 AM [facility] REPOSITORY TYPE CODE TESTS RESULT OUT OF RANGE REFERENCE UNITS LAB L501.85178 2.18-3.98 pg/mL Normal FREE T3 3.6 Performed By: #### L100.0100, L500.4050, L501.69986, L501.9520, L506.0400, L503.0105, L506.1000 #### [facility] [address] [place], [address] THYROID STIM HORMONE Collected: 12/08/2017 Status: F Source: [place] (TSH) 10:24 AM [facility] REPOSITORY TYPE CODE TESTS RESULT OUT OF RANGE REFERENCE UNITS LAB L501.9520 0.358-3.74 uIU/mL Normal TSH 1.16 Performed By: #### L100.0100, L500.4050, L501.58693, L501.9520, L506.0400, L503.0105, L506.1000 #### [facility] [place], [place], [address] T4 FREE DIRECT Collected: 12/08/2017 Status: F Source: [place] 10:24 AM [facility] REPOSITORY TYPE CODE TESTS RESULT OUT OF RANGE REFERENCE UNITS LAB L506.0400 0.76-1.46 ng/dL Normal T4 FREE 0.86 DIRECT Performed By: #### L100.0100, L500.4050, L501.57734, L501.9520, L506.0400, L503.0105, L506.1000 #### [facility] [address] [place], [place], [address] VITAMIN B12 Collected: 12/08/2017 Status: F Source: [place] 10:24 AM [facility] REPOSITORY TYPE CODE TESTS RESULT OUT OF RANGE REFERENCE UNITS LAB L503.0105 211-911 pg/mL Normal Vitamin B12 805 Performed By: #### L100.0100, L500.4050, L501.12858, L501.9520, L506.0400, L503.0105, L506.1000 #### [facility] [address] [place], [place], [address] VITAMIN D,25 HYDROXY Collected: 12/08/2017 Status: F Source: [place] 10:24 AM [facility] REPOSITORY TYPE CODE TESTS RESULT OUT OF REFERENCE UNITS RANGE LAB L506.1000 29.95-100.01 ng/mL Low Vitamin D 17.8 25-OH Result Comment: Vitamin D 25(OH) Status Range Deficiency <20 ng/mL (50nmol/L) Insuffciency 20 - 30 ng/mL (50 - 75 nmol/L) Sufficiency 30 - 100 ng/mL (75 - 250 nmol/L) Toxicity >100 ng/mL (>250 nmol/L) Performed By: #### L100.0100, L500.4050, L501.67046, L501.9520, L506.0400, L503.0105, L506.1000 #### [facility] [address] [place], [address] HEPATITIS C,RNA PCR Collected: 12/08/2017 Status: F Source: [place] VIRAL [place]AD 10:24 AM [facility] REPOSITORY TYPE CODE TESTS RESULT OUT OF RANGE REFERENCE UNITS LAB L7000.7100 . IU/mL HCV Normal HCV Not Detected QT PCR LAB L7000.7350 . Test Normal HCV not performed log 10 LAB L7000.7500 . Normal TEST Comment INFO: Result Comment: The quantitative range of this assay is 15 IU/mL to 100 million IU/mL. Performed at: - [facility] [id number] [employer]: Sathya Betts MD, Phone: [phone] Performed By: #### L7000.7000 #### [facility] (refer to report for specific site) refer to report for address and phone number ORTHOPEDIC VISIT Observed: 11/23/2017 Status: F Source: [place] REPORT 4:45 PM [facility] REPOSITORY [facility] [address] [place] [address] OFFICE VISIT Date of Service: 11/22/17 MR#: [id number] Acct: [id number] Name: BARNEY SANCHEZ Rep #: [id number] : 1970 Provider: Lorraine Griffiths MD Age/Sex: 47/F Location: [facility].S[facility] Status: Signed Intake Intake Visit Reasons: LOW BACK PAIN Is patient in pain?: Yes Pain scale (1-10): 8 Allergies levetiracetam [From Keppra] Allergy (Verified 11/23/17 10:07) PANICK ATTACKS Penicillins [PCN] Allergy (Verified 11/23/17 10:07) Hives pregabalin [From Lyrica] Allergy (Verified 11/23/17 10:07) Other zolpidem tartrate [From Ambien] Allergy (Verified 11/23/17 10:07) Other Medications Gabapentin [Neurontin] 400 mg PO TIDCM 05/06/14 [History Confirmed 11/07/17] Methimazole [Tapazole] 2.5 mg PO DAILY 05/06/14 [History Confirmed 11/07/17] Mirtazapine [Remeron] 30 mg PO QHS 05/06/14 [History Confirmed 11/07/17] Baclofen 20 mg PO TID 01/06/15 [History Confirmed 11/07/17] PFSH Social History Smoking Status: Current every day smoker HPI LOW BACK PAIN: Details: BARNEY SANCHEZ is a 47 year old RHD F here today for low back pain. She notes that she has had pain for 13 years but her pain is progressively worsening. Patient denies any known injury. Patient complains of back pain 50% and bilateral buttock and bilateral anterior/posterior thighs 50%. Her pain stops mid thigh. She has increased pain with sitting, ambulating stairs and laying down. She presents today laying on her stomach as that is most comfortable. She has tried physical therapy 4 years ago as well as aqua therapy. Aqua therapy helps when she is in the water. She denies bowel or bladder issues, gait instability or difficulty with hand dexterity. She has had a spinal cord stimulator placed by Dr. Berkowitz in 2014. Patient sees Dr Berkowitz and has had multiple injections. Patients most recent injection was on 06/21/17 for a LES L5-S1. She has had TFESI in 10/2016 and bilateral SI join injections in 2016. She has taken 2 rounds of prednisone which has not helped her back pain. She takes gabapentin and baclofen, given to her by Dr Panchal, for pain. She is disabled. She smokes 2 ppd. She denies alcohol use. She has fibromyalgia, hyperand hypothyroidism. ROS Const Reports system reviewed and no additional complaints, except as docu Eyes Reports system reviewed and no additional complaints, except as docu ENT Reports system reviewed and no additional complaints, except as docu Card Reports system reviewed and no additional complaints, except as docu Resp Reports system reviewed and no additional complaints, except as docu GI Reports system reviewed and no additional complaints, except as docu Reports system reviewed and no additional complaints, except as docu Musc Reports back pain, Reports radiating pain into limb Skin/Breast Reports system reviewed and no additional complaints, except as docu Neuro Yes system reviewed and no additional complaints, except as docu Psych Reports system reviewed and no additional complaints, except as docu Endo Reports system reviewed and no additional complaints, except as docu Ortho Exam Spine Neuro: Yes Clonus (none bilaterally), Rai's (negative bilaterally), Babinski (downgoing bilaterally) and Straight Leg Raise (negative bilaterally) General: alert, oriented x3 Skin: Yes surgical scars (from SCS) Capillary Refill <2sec: Yes Palpable Pulses: 2+ dp/pt pulses Gait: normal gait, other (able to heel and toe walk) Motor: strength 5/5 throughout Sensory Exam: no sensory deficits noted DTR's: Rt Triceps: 2+, Lt Triceps: 2+, Rt Biceps: 2+, Lt Biceps: 2+, Rt Brachioradialis: 2+, Lt Brachioradialis: 2+, Rt Patellar: 2+, Lt Patellar: 2+, Rt Ankle: 2+, Lt Ankle: 2+ Plantar Reflexes: Downgoing: bilateral Coordination: tandem gait normal, Romberg test normal SPINE TESTING CERVICAL THORACIC LUMBAR SLR: Negative Musculoskeletal General: Yes normal gait and normal posture Cervical Spine: cervical ROM normal Thoracic/Lumbar Spine: straight leg raise negative bilaterally, thoraco-lumbar ROM limited, pain with thoraco-lumbar ROM (worse with lumbar extension and flexion), paraspinal tenderness, other (tenderness throughout the lumbar spine diffusely) Strength 0=absent - 5=normal Deltoid R (C5): 5, Deltoid L (C5): 5, R Bicep (C5-6): 5, L Bicep (C5-6): 5, R Wrist Extensor (C6): 5, L Wrist Extensor (C6): 5, R Tricep (C7): 5, L Tricep (C7): 5, R Finger Flexors (C8): 5, L Finger Flexors (C8): 5, R First Dorsal Interossei (C8): 5, L First Dorsal Interossei (C8): 5, R Hip Flexor (L1-3): 5, L Hip Flexor (L1-3): 5, R Quadriceps (L2-4): 5, L Quadriceps (L2-4): 5, R Anterior Tibialis (L4-5): 5, L Anterior Tibialis (L4- 5): 5, R Hamstrings (L5-S1): 5, L Hamstrings (L5-S1): 5, GS (S1): 5, L GS (S1): 5, R Peroneals (S1): 5, L Peroneals (S1): 5 Assessment AND Plan Problems 1. Chronic midline low back pain without sciatica M54.5; G89.29 Plan Imaging: XR lumbar spine 11/22/2017 reveals diffuse spondylosis with presence of spinal cord stimulator MRI lumbar spine 08/17/2017 reveals diffuse spondylosis without central, lateral recess, foraminal stenosis I/R/P: 1. back pain 2. SCS 3. fibromyalgia 4. nicotine use Ms. Sanchez presents with back pain. Her imaging does not reveal significant compressive lesion. The natural history and course of the symptomatology of back pain was discussed in detail with the patient. I answered all questions regarding the mode of onset, pathophysiology, symptoms, imaging findings, treatment options regarding her diagnosis. Recommend continue conservative treatment with Dr. Berkowitz. Patient requests physical therapy - provided. Follow up as needed. Plan of care discussed. All questions answered. She is in understanding. Orders Orders: Coding Level of Care Code Off vis,new,level 4 Diagnoses Chronic midline low back pain without sciatica M54.5; G89.29 Back pain location: low back pain Chronicity: chronic Back pain laterality: midline Sciatica presence: without sciatica 11/23/17 1645 <Electronically signed by Lorraine Griffiths MD> Date Lorraine Griffiths MD Cosigner Signature: Date (if applicable) CC: Víctor Berkowitz MD L/S SPINE MIN 4 Observed: 11/22/2017 Status: F Source: [place] VIEWS 1:26 PM [facility] REPOSITORY [facility] Imaging Services [address] [place] [address] L/S Spine Min 4 Views MR#: [id number] Acct: [id number] Name: BARNEY SANCHEZ Rep #: [id number] : 1970 F 47 From: Marcin Greco MD PCP: Matty Panchal MD Status: REG CLI Study: L/S Spine Min 4 Views Date of Exam: 11/22/17 Exam# [id number] Ordering Dr: Lorraine Griffiths MD STUDY: X-RAY - LUMBAR SPINE REASON FOR EXAM: Female, 47 years old. Low back pain TECHNIQUE: 4 view(s) of the lumbar spine were obtained. COMPARISON: None FINDINGS: Normal lumbar lordosis. There is no substantial scoliosis. There is a normal alignment of the vertebrae. There is a left sided subcutaneous implanted electronic device with leads extending into the spinal canal. This is likely an SCS (spinal cord stimulator). Loss of intervertebral disc height at L5-S1. Vacuum disc phenomenon at L5-S1. There is multilevel endplate spondylosis of the lumbar vertebrae. There is multi-level degenerative disc disease with multi-level disc space narrowing. There are atherosclerotic vascular calcifications. The soft tissue structures are unremarkable. RAD/L/S Spine Min 4 Views IMPRESSION: Degenerative changes of the spine, as detailed above. Electronically Signed: Marcin Greco MD at 17:02 EDT , Service support , CC: Matty Panchal MD; Lorraine Griffiths MD Trimmer Sorter: Signed EMERGENCY DEPARTMENT Observed: 11/07/2017 Status: F Source: [place] SUMMARY 5:32 PM [facility] REPOSITORY [facility] Medical Records Department [address] [place] [address] Emergency Department Summary 11/07/17 1039 MR#: [id number] Acct: [id number] Name: BARNEY SANCHEZ Rep #: [id number] : 1970 47 From: Bill Hernandez MD PCP: Matty Panchal MD Status: DEP ER - ER Visit Summary Date of Service: 11/07/17 Chief Complaint: Rash and itching. History of Present Illness: The patient is a 47 F states she believes she was bitten by X. For the last 2 weeks she has had intermittent rashes with itching. She also has painful raised rash on her right calf. She does shave her legs. She denies fever. She denies nausea, vomiting or anything like this before. She was seen by an urgent care and read placed on doxycycline in case this was secondary to a tick bite. She was also seen by her PCPs office and treated with Diflucan for vaginal yeast infection which she states is improving. Physical Examination: Well-appearing middle-age female. Vital signs are stable afebrile. She does not look septic toxic. She is no acute distress. H EENT exam unremarkable. Neck nontender no lymphadenopathy. Lungs clear to auscultation bilaterally. Heart regular rhythm no murmur. Abdomen soft nontender. Moving all 4 extremities. Neurovascular intact. On her right lateral calf there is red raised areas it could be a local allergic reaction to insect stings could also be infected hair follicles. There are no pustules. There is no lymphangitic streaking. It is not hot. She also has a rash on her left knee and anterior lower leg. In her right hand. Neurologically she is awake alert no focal deficits. Test Results: None Emergency Department Course and Treatment: The rash patient has is consistent with allergic reaction. There could also be infected hair follicles in her right calf. Treatment Plan: Treated with prednisone for the allergic reaction. Placed on Keflex for possible folliculitis. She will be referred to a local research test engine operator. Disposition: Discharge Impression: Acute rash secondary to allergic reaction Rule out folliculitis This note was generated with [employer] software. It may contain incorrect words, spelling, and punctuation that were not noted in review of the chart prior to signing ED Disposition - Plan for ED Patient: Chief Complaint: Rash Referrals: Jim Panchal MD [Primary Care Provider] - What to do if you have Problems For any increased pain, shortness of breath, bleeding, nausea or vomiting, chest pain, or any unexpected problems, contact your Primary Care Provider. Call [facility] ([phone]) or report to the closest Emergency Room. Call 911 if necessary. 11/07/17 1732 <Electronically signed by Bill Hernandez MD> Date Bill Hernandez MD Cosigner Signature (If Indicated): Date CC: Matty Panchal MD DISCHARGE INSTRUCTION Observed: 11/07/2017 Status: F Source: [place] 5:32 PM [facility] REPOSITORY [facility] Medical Records Department [address] [facility] [place] [address] Discharge Instruction 11/07/17 1042 MR#: [id number] Acct: [id number] Name: BARNEY SANCHEZ Rep #: [id number] : 1970 47 From: Bill Hernandez MD PCP: Matty Panchal MD Status: DEP ER ED Disposition - Plan for ED Patient: Disposition: Home or Assisted Living Chief Complaint: Rash Instructions: ED Bite Sting Insect Gen Allergic React Prescriptions: Cephalexin [Keflex] 500 mg PO Q6 10 Days cap Prednisone [Deltasone] 40 mg PO DAILY 7 Days tab Referrals: Jim Panchal MD [Primary Care Provider] - As Needed Vane To [NON-STAFF] - As soon as possible Additional Instructions: Rash is most likely secondary to allergic reaction. On her right lower leg disc redo infected hair follicles. For those reasons we will treat you both for an allergic reaction with the prednisone and for possible soft tissue infection with the Keflex. Follow-up with Dr. To the research test engine operator. What to do if you have Problems For any increased pain, shortness of breath, bleeding, nausea or vomiting, chest pain, or any unexpected problems, contact your Primary Care Provider. Call [facility] ([phone]) or report to the closest Emergency Room. Call 911 if necessary. 11/07/17 0504 <Electronically signed by Bill Hernandez MD> Date Bill Hernandez MD Cosigner Signature (If Indicated): Date CC: Matty Panchal MD PROGRESS Observed: 10/27/2017 Status: COMPLETED Source: [place] 6:57 PM [facility] REPOSITORY O ID: [id number] Author: Anila Winter (Snow) Noe Service: (none) Author Type: Nurse Practitioner Type: Progress Notes Filed: 10/27/2017 7:03 PM Note Text: Subjective HPI Patient presents with: Derm Problem: redness on bilateral legs, itching? x 2-3 days, ? bites, took allergy medication and aloe plant with no relief. States tired and fatigued more today. Denies changes to soaps, detergents, lotions, perfumes, new medications, or exposures to known allergens. ROS All other reviewed and negative other than HPI. PAST MEDICAL HISTORY Diagnosis Date - Acute pancreatitis 2003 - Dysplasia of cervix, unspecified - Hypothyroidism found on labs while in hospital for gallbladder surgery - Other and unspecified alcohol dependence, unspecified drinking behavior ETOH depend. syn. - Other and unspecified ovarian cyst Ovarian cyst - Other and unspecified ovarian cyst Ovarian cyst - Other specified disorders of liver HEPATITIS C in 2007 (Dr. Pritchett) - Sciatica PAST SURGICAL HISTORY Procedure Laterality Date - APPENDECTOMY - BX OF BREAST; INCISIONAL 2000 Bx of breast, incisional - LAP CHOLECYSTECT/CHOLANGIOGRAPHY 04/06/07 - LIGATE FALLOPIAN TUBE Tubal ligation - PAST SURGICAL HISTORY OF 05/03/2012 [facility] with Hysteroscopy - REMOVAL OF OVARY(S) Oophorectomy RIGHT ALLERGIES Ambien [Zolpidem Tartrate]; Clonazepam; Keppra [Levetiracetam]; Lyrica [Pregabalin]; Penicillins MEDICATIONS gabapentin (NEURONTIN) 600 mg tablet Take 600 mg by mouth twice daily. baclofen (LIORESAL) 20 mg tablet Take 20 mg by mouth twice daily. metHIMazole (TAPAZOLE) 5 mg tablet Take 5 mg by mouth three times daily. 1/2 a tablet a day mirtazapine (REMERON) 45 mg tablet Take 45 mg by mouth daily at bedtime. doxycycline monohydrate (MONODOX) 100 mg capsule Take 1 capsule by mouth twice daily for 10 days. triamcinolone acetonide (KENALOG) 0.1 % cream Apply 1 application to affected area three times daily for 10 days. Apply sparingly to area for rash/itching. carBAMazepine XR (TEGRETOL XR) 200 mg 12 hr tablet Take 1 tablet by mouth twice daily. FAMILY HISTORY Problem Relation Age of Onset - None Mother - None Father - None Brother Social History Substance Use Topics - Smoking status: Current Every Day Smoker Packs/day: 1.00 Years: 15.00 Types: Cigarettes - Smokeless tobacco: Never Used - Alcohol use No Comment: last drink december 18 Objective Physical Exam Skin: Nursing note and vitals reviewed. ASSESSMENT/PLAN: 1. Rash - ICD9: 782.1, ICD10: R21 -suspected erythema migraine -unknown tick bite -Doxycycline -Triamcinolone -F/u with pcp in 7-10 days for re-evaluation or sooner if symptoms are not improving or worsening Prescription instructions reviewed with patient as applicable. Patient advised if symptoms do not improve or if symptoms worsen sooner, to contact their primary care physician. Potential red flag symptoms discussed with the patient. Reviewed appropriate action plan to take if red flag symptoms occur. Patient agreeable to treatment plan. Anila Moore APRN.ATHLETE MARKETING AGENT CNOV Observed: 10/27/2017 Status: COMPLETED Source: [place] 6:00 PM [facility] REPOSITORY Office Visit ([facility]) CHELSEA SANCHEZY Osman ([id number]) 1970 F Date Time Provider Department 10/27/17 6:00 PM ANILA MOORE (AIRPORT TRAFFIC CONTROLLER) [facility] During your visit today, we recorded the following information about you: Temperature Pulse Respiration Blood pressure 98.1 degrees 76/minute 16/minute 122/72 Weight 59.4 kg Anila Moore APRN.CNP 10/27/2017 6:21 PM Signed Avoiding Tick Bites How can I avoid tick bites? If you are planning an outdoor activity, especially those in a heavily wooded area, it is important to follow a few simple precautions to protect yourself from tick bites. Wear long sleeved, light-colored clothing, with tightly woven fabric. This gives ticks less area to target and allows you to see ticks on your clothing. When traveling through the [place] or grassy [place], stay near the center of the trails. At home, make sure that you keep your lawn mowed and bushes and trees trimmed as short as possible. If you choose to apply tick repellents, such as those containing DEET, try to avoid spraying them directly to your bare skin. (high concentrations of DEET may have harmful effects on the nervous system.) Apply the spray to your clothing, socks, shoes, tents and backpacks. When returning from the outdoors, check for ticks. Be especially observant of hair, body folds, ears, underarms and the back. Check your clothes and gear for ticks and wash these items immediately. What if I have been bitten by a tick? If you discover a tick, remove it immediately. The longer the tick feeds, the greater chance that it can transmit its bacteria to you. The easiest removal method is to use a pair of tweezers, grasp the tick as close to your skin as possible, and gently pull the tick off. Then, thoroughly wash your hands and the bite area with rubbing alcohol to prevent transmission to other areas of your body. When should I call the doctor? It is best to wait and see whether you develop any signs or symptoms. If a large red gennaro forms around the tick bite or if you develop fever, flu-like symptoms, rash, or more severe illness, contact your doctor right away. Your doctor can determine whether these symptoms might be caused by a tick-borne disease, and whether antibiotics will be needed. Is there a vaccine for preventing tick-borne disease in humans? Currently there are vaccines being tested, but there are no guarantees that they will be effective. The best option is to take precautions so that tick bites do not occur in the first place. Early Signs and Symptoms (3 to 30 days after tick bite) Fever, chills, headache, fatigue, muscle and joint aches, and swollen lymph nodes Erythema migrans (EM) rash: Occurs in approximately 70 to 80 percent of infected persons Begins at the site of a tick bite after a delay of 3 to 30 days (average is about 7 days) Expands gradually over a period of days reaching up to 12 inches or more (30 cm) across May feel warm to the touch but is rarely itchy or painful Sometimes clears as it enlarges, resulting in a target or ?bull's-eye? appearance May appear on any area of the body Later Signs and Symptoms (days to months after tick bite) Severe headaches and neck stiffness Additional EM rashes on other areas of the body Arthritis with severe joint pain and swelling, particularly the knees and other large joints. Facial or Ramirez's palsy (loss of muscle tone or droop on one or both sides of the face) Intermittent pain in tendons, muscles, joints, and bones Heart palpitations or an irregular heart beat (Lyme carditis) Episodes of dizziness or shortness of breath Inflammation of the brain and spinal cord Nerve pain Shooting pains, numbness, or tingling in the hands or feet Problems with short-term memory Anila Moore APRN.ATHLETE MARKETING AGENT 10/27/2017 7:03 PM Signed Subjective HPI Patient presents with: Derm Problem: redness on bilateral legs, itching? x 2-3 days, ? bites, took allergy medication and aloe plant with no relief. States tired and fatigued more today. Denies changes to soaps, detergents, lotions, perfumes, new medications, or exposures to known allergens. ROS All other reviewed and negative other than HPI. PAST MEDICAL HISTORY Diagnosis Date - Acute pancreatitis 2003 - Dysplasia of cervix, unspecified - Hypothyroidism found on labs while in hospital for gallbladder surgery - Other and unspecified alcohol dependence, unspecified drinking behavior ETOH depend. syn. - Other and unspecified ovarian cyst Ovarian cyst - Other and unspecified ovarian cyst Ovarian cyst - Other specified disorders of liver HEPATITIS C in 2007 (Dr. Pritchett) - Sciatica PAST SURGICAL HISTORY Procedure Laterality Date - APPENDECTOMY - BX OF BREAST; INCISIONAL 2000 Bx of breast, incisional - LAP CHOLECYSTECT/CHOLANGIOGRAPHY 04/06/07 - LIGATE FALLOPIAN TUBE Tubal ligation - PAST SURGICAL HISTORY OF 05/03/2012 [facility] with Hysteroscopy - REMOVAL OF OVARY(S) Oophorectomy RIGHT ALLERGIES Ambien [Zolpidem Tartrate]; Clonazepam; Keppra [Levetiracetam]; Lyrica [Pregabalin]; Penicillins MEDICATIONS gabapentin (NEURONTIN) 600 mg tablet Take 600 mg by mouth twice daily. baclofen (LIORESAL) 20 mg tablet Take 20 mg by mouth twice daily. metHIMazole (TAPAZOLE) 5 mg tablet Take 5 mg by mouth three times daily. 1/2 a tablet a day mirtazapine (REMERON) 45 mg tablet Take 45 mg by mouth daily at bedtime. doxycycline monohydrate (MONODOX) 100 mg capsule Take 1 capsule by mouth twice daily for 10 days. triamcinolone acetonide (KENALOG) 0.1 % cream Apply 1 application to affected area three times daily for 10 days. Apply sparingly to area for rash/itching. carBAMazepine XR (TEGRETOL XR) 200 mg 12 hr tablet Take 1 tablet by mouth twice daily. FAMILY HISTORY Problem Relation Age of Onset - None Mother - None Father - None Brother Social History Substance Use Topics - Smoking status: Current Every Day Smoker Packs/day: 1.00 Years: 15.00 Types: Cigarettes - Smokeless tobacco: Never Used - Alcohol use No Comment: last drink december 18 Objective Physical Exam Skin: Nursing note and vitals reviewed. ASSESSMENT/PLAN: 1. Rash - ICD9: 782.1, ICD10: R21 -suspected erythema migraine -unknown tick bite -Doxycycline -Triamcinolone -F/u with pcp in 7-10 days for re-evaluation or sooner if symptoms are not improving or worsening Prescription instructions reviewed with patient as applicable. Patient advised if symptoms do not improve or if symptoms worsen sooner, to contact their primary care physician. Potential red flag symptoms discussed with the patient. Reviewed appropriate action plan to take if red flag symptoms occur. Patient agreeable to treatment plan. Anila Moore APRN.ATH[employer] MARKETING AGENT Referring Provider: SELF [[id number]] Allergies As of Date: 10/27/2017 Noted Allergy Reaction AMBIEN (ZOLPIDEM TARTRATE) 08/22/2012 2 - Rash CLONAZEPAM 10/20/2012 5 - Intolerance Comments: over-sedating KEPPRA (LEVETIRACETAM) 01/18/2017 14 - Other: See Comments Comments: Heavy breathing, numbness in fingers LYRICA (PREGABALIN) 08/22/2012 1 - Mental Status Change PENICILLINS 10/19/2004 4 - Hives 7 - Swelling 9 - Itching Date Reviewed: 10/27/2017 Reviewed by: Cathy Soto Ma - Fully Assessed Reason for Visit: Derm Problem [33] Cmt: redness on bilateral legs, itching x 2-3 days, ? bites, took allergy medication at;00pm and aloe plant Primary Visit Diagnosis:Rash [R21] Order(s):doxycycline monohydrate (MONODOX) 100 mg capsuleTake 1 capsule by mouth twice daily for 10 days.Disp: 20 capsuleRfl: 0 triamcinolone acetonide (KENALOG) 0.1 % creamApply 1 application to affected area three times daily for 10 days. Apply sparingly to area for rash/itching.Disp: 60 gRfl: 0 Prescriptions as of 10/27/2017 Sig: GABAPENTIN 600 MG TABLET Take 600 mg by mouth twice da* BACLOFEN 20 MG TABLET Take 20 mg by mouth twice kailey* METHIMAZOLE 5 MG TABLET Take 5 mg by mouth three time* MIRTAZAPINE 45 MG TABLET Take 45 mg by mouth daily at * DOXYCYCLINE MONOHYDRATE 100 M* Take 1 capsule by mouth twice* TRIAMCINOLONE ACETONIDE 0.1 %* Apply 1 application to affect* CARBAMAZEPINE ER 200 MG TABLE* Take 1 tablet by mouth twice * Patient not taking: Reported on 10/27/2017 Medication notes this encounter MIRTAZAPINE 45 MG TABLET >> Cathy Soto Ma 10/27/2017 6:02 PM >> CATHY SOTO MA Oct 27, 2017 6:02 PM Problem List As Of Date 10/27/2017 Noted Resolved ALCOH DEP NEC/NOS-UNSPEC [F10.20] More... LIVER DISORDERS NEC [K76.89] More... ACUTE PANCREATITIS [K85.90] DERMATOPHYTOSIS OF BODY [B35.4] INVALID FOR* PAIN ABDOMEN( Left Lower Quadrant) [R10.32] INVALID FOR* PAIN BACK, LOW [M54.5] INVALID FOR* Hypothyroidism [E03.9] More... Other pain disorders related to psychological f*INVALID FOR* Other instructions from your clinician: Avoiding Tick Bites How can I avoid tick bites? If you are planning an outdoor activity, especially those in a heavily wooded area, it is important to follow a few simple precautions to protect yourself from tick bites. Wear long sleeved, light-colored clothing, with tightly woven fabric. This gives ticks less area to target and allows you to see ticks on your clothing. When traveling through the [place] or grassy [place], stay near the center of the trails. At home, make sure that you keep your lawn mowed and bushes and trees trimmed as short as possible. If you choose to apply tick repellents, such as those containing DEET, try to avoid spraying them directly to your bare skin. (high concentrations of DEET may have harmful effects on the nervous system.) Apply the spray to your clothing, socks, shoes, tents and backpacks. When returning from the outdoors, check for ticks. Be especially observant of hair, body folds, ears, underarms and the back. Check your clothes and gear for ticks and wash these items immediately. What if I have been bitten by a tick? If you discover a tick, remove it immediately. The longer the tick feeds, the greater chance that it can transmit its bacteria to you. The easiest removal method is to use a pair of tweezers, grasp the tick as close to your skin as possible, and gently pull the tick off. Then, thoroughly wash your hands and the bite area with rubbing alcohol to prevent transmission to other areas of your body. When should I call the doctor? It is best to wait and see whether you develop any signs or symptoms. If a large red gennaro forms around the tick bite or if you develop fever, flu-like symptoms, rash, or more severe illness, contact your doctor right away. Your doctor can determine whether these symptoms might be caused by a tick-borne disease, and whether antibiotics will be needed. Is there a vaccine for preventing tick-borne disease in humans? Currently there are vaccines being tested, but there are no guarantees that they will be effective. The best option is to take precautions so that tick bites do not occur in the first place. Early Signs and Symptoms (3 to 30 days after tick bite) Fever, chills, headache, fatigue, muscle and joint aches, and swollen lymph nodes Erythema migrans (EM) rash: Occurs in approximately 70 to 80 percent of infected persons Begins at the site of a tick bite after a delay of 3 to 30 days (average is about 7 days) Expands gradually over a period of days reaching up to 12 inches or more (30 cm) across May feel warm to the touch but is rarely itchy or painful Sometimes clears as it enlarges, resulting in a target or ?bull's-eye? appearance May appear on any area of the body Later Signs and Symptoms (days to months after tick bite) Severe headaches and neck stiffness Additional EM rashes on other areas of the body Arthritis with severe joint pain and swelling, particularly the knees and other large joints. Facial or Ramirez's palsy (loss of muscle tone or droop on one or both sides of the face) Intermittent pain in tendons, muscles, joints, and bones Heart palpitations or an irregular heart beat (Lyme carditis) Episodes of dizziness or shortness of breath Inflammation of the brain and spinal cord Nerve pain Shooting pains, numbness, or tingling in the hands or feet Problems with short-term memory Prescriptions ordered this encounter Disp Refills Start End DOXYCYCLINE MONOHYDRATE 100 MG CAPSU* 20 c* 0 10/27/2017 11/06/2017 Route: ORAL Sig: Take 1 capsule by mouth twice daily for 10 days. TRIAMCINOLONE ACETONIDE 0.1 % TOPICA* 60 g 0 10/27/2017 11/06/2017 Route: TOPICAL Sig: Apply 1 application to affected area three times daily for 10 days. Apply sparingly to area for rash/itching. Disposition: Return if symptoms worsen or fail to improve. Follow-up and Disposition History Recorded Encounter Status:Closed by ANILA MOORE on 10/27/17 SPINE LUMBAR Observed: 08/17/2017 Status: F Source: BETHEL (ROUTINE) 9:36 AM [facility] REPOSITORY [facility] Imaging Services [address] [place] [address] [place] [address] Spine Lumbar (Routine) MR#: [id number] Acct: [id number] Name: BARNEY SANCHEZ Rep #: [id number] : 1970 F 46 From: Stephane Gates MD PCP: Matty Panchal MD Status: REG CLI Study: Spine Lumbar (Routine) Date of Exam: 08/17/17 Exam# [id number] Ordering Dr: Víctor Berkowitz MD STUDY: MRI LUMBAR SPINE WITHOUT CONTRAST REASON FOR EXAM: Female, 46 years old. Back pain and bilateral leg pain with numbness and tingling. TECHNIQUE: Standardized fat and water weighted pulse sequences were obtained in the sagittal and axial planes. COMPARISON: None FINDINGS: T11-T12: (Sagittal only). Normal endplates. Normal disc height, hydration and morphology. Normal central canal and bilateral intervertebral neural foramina. T12-L1: (Sagittal only). Normal endplates. Normal disc height, hydration and morphology. Normal central canal and bilateral intervertebral neural foramina. Normal lumbar lordosis. There is no substantial scoliosis. Normal conus medullaris that terminates at the lower L1 vertebral body level. L1-2: Anterior marginal spurs. Normal endplates. Normal disc height, hydration and morphology. Normal central canal and bilateral lateral recesses. Normal facet joints. Normal bilateral intervertebral neural foramina. L2-3: Normal endplates. Normal disc height, hydration and morphology. Normal bilateral facet joints. Normal central canal and bilateral lateral recesses. Normal bilateral intervertebral neural foramina. L3-4: Normal endplates. Normal disc height, hydration and morphology. Normal bilateral facet joints. Normal central canal and bilateral lateral recesses. Normal bilateral intervertebral neural foramina. L4-5: Normal endplates. Normal disc height, hydration and morphology. Normal bilateral facet joints. Normal central canal and bilateral lateral recesses. Normal bilateral intervertebral neural foramina. L5-S1: Pronounced disc space height narrowing. Mild Modic type I degenerative vertebral marrow edema underneath the posterior aspect of the vertebral endplates. Nearly grade 1 degenerative retrolisthesis of L5 on S1. Normal central canal. Normal bilateral lateral recesses. Mild asymmetric degenerative facet arthropathy. Normal bilateral intervertebral neural foramina. Normal visualized sacral ala. 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 Normal visualized paraspinous soft tissue structures. MRI/Spine Lumbar (Routine) IMPRESSION: 1. Pronounced L5-S1 disc space height narrowing with mild Modic type I degenerative vertebral marrow edema underneath the posterior aspect of the vertebral endplates and nearly grade 1 degenerative retrolisthesis of L5 on S1. 2. No MRI evidence of lumbar extruded disc fragment or spinal stenosis. 3. Signal dropout artifact in the posterior epidural space at the T11-T12 disc level and above. This is presumably an epidural wire device used for pain control. Electronically Signed: Stephane Gates MD at 14:50 EDT , Service support , CC: Víctor Berkowitz MD; Matty Panchal MD Trimmer Sorter: Signed CBC W/DIFF, AUTOMATED Collected: 07/11/2017 Status: F Source: [place] 9:31 AM [facility] REPOSITORY TYPE CODE TESTS RESULT OUT OF RANGE REFERENCE UNITS LAB L100.1000 4.4-11.0 K/mm3 Normal WBC 7.4 LAB L100.1200 4.2-5.4 M/mm3 Normal RBC 4.58 LAB L100.1300 12.0-15.0 g/dl Normal HGB 14.7 LAB L100.1400 37-47 % Normal HCT 44.5 LAB L100.1500 81-99 fL Normal MCV 97.2 LAB L100.1600 27.0-32.0 pg High MCH 32.1 LAB L100.1700 32-36 g/gl Normal MCHC 33.0 LAB L100.1810 11.6-14.6 % Normal RDW CV 12.9 LAB L100.1820 35.1-43.9 fl High RDW SD 45.7 LAB L100.1900 150-450 K/mm3 Normal PLT 221 LAB L100.2000 6.2-12.0 fl Normal MPV 8.6 LAB L100.2100 47-70 % Normal NEUT% 58.6 LAB L100.2200 19-41 % Normal LY% 36.9 LAB L100.2300 0-10 % Normal MONO% 3.1 LAB L100.2400 0-5 % Normal EO% 1.1 LAB L100.2500 0-1 % Normal BASO% 0.3 LAB L100.2550 0.0-0.9 % Normal IM GRAN % 0.000 Result Comment: IG% - Immature Granulocytes (promyelocytes, myelocytes and metamyelocytes) > 1% indicates that a LEFT SHIFT is Present. LAB L100.2620 2.0-7.7 X10 3/uL Normal Absolute Neut 4.4 LAB L100.2720 0.83-4.51 X10 3/ul Normal Absolute Lymph 2.74 Performed By: #### L100.0100 #### [facility] [address] [place], [address] COMPREHENSIVE METABOLIC Collected: 07/11/2017 Status: F Source: [facility] 9:31 AM [facility] REPOSITORY TYPE CODE TESTS RESULT OUT OF RANGE REFERENCE UNITS LAB L501.0100 74-106 mg/dL Normal GLU 93 Result Comment: Please note revised GLUCOSE reference range effective 2017. LAB L501.1000 7-18 mg/dL Low BUN 6 LAB L501.1100 0.55-1.02 mg/dL Normal CREAT,SERUM 0.78 Result Comment: The validity of the calculated GFR AND GFRAA in patients over 70 years has not been determined. Clinical correlation is essential. LAB L501.1110 >60 mL/min Normal EST GFR 84 Result Comment: Non- GFR Calc LAB L501.1115 >60 mL/min Normal EST GFR - AA 102 Result Comment: GFR Calc LAB L501.1300 10-20 RATIO Low BUN/CRE 7.7 LAB L501.1500 6.4-8.2 g/dL Normal T PROT 7.9 LAB L501.1800 3.2-5.0 g/dL Normal ALB 4.2 LAB L501.1950 2.2-4.2 g/dL Normal GLOB 3.7 LAB L501.2000 0.9-2.4 RATIO Normal A/G 1.1 LAB L501.2200 8.5-10.1 mg/dL Normal CA 9.0 LAB L501.4100 15-37 U/L Low AST 14 LAB L501.4305 45-117 U/L Normal ALK P 67 LAB L501.4405 13-56 U/L Normal ALT 13 LAB L501.4600 0.20-1.00 mg/dL Normal T BILI 0.40 LAB L501.5300 136-145 mmol/L Normal NA 141 LAB L501.5600 3.5-5.1 mmol/L Normal K 4.0 LAB L501.5900 98-107 mmol/L Normal CL 107 LAB L501.6100 21.0-32.0 mmol/L Normal CO2 27.0 LAB L501.6200 5-15 Normal GAP 7 Performed By: #### L500.4050, L501.80963, L501.9520, L506.0400 #### [facility] [address] [place], [place], [address] FREE T3 Collected: 07/11/2017 Status: F Source: [place] 9:31 AM [facility] REPOSITORY TYPE CODE TESTS RESULT OUT OF RANGE REFERENCE UNITS LAB L501.69183 2.18-3.98 pg/mL Normal FREE T3 3.0 Performed By: #### L500.4050, L501.51969, L501.9520, L506.0400 #### [facility] [address] [place], [place], [address] THYROID STIM HORMONE Collected: 07/11/2017 Status: F Source: [place] (TSH) 9:31 AM [facility] REPOSITORY TYPE CODE TESTS RESULT OUT OF RANGE REFERENCE UNITS LAB L501.9520 0.358-3.74 uIU/mL Normal TSH 0.76 Performed By: #### L500.4050, L501.21873, L501.9520, L506.0400 #### [facility] [address] [facility] [place], [place], [address] T4 FREE DIRECT Collected: 07/11/2017 Status: F Source: [place] 9:31 AM [facility] REPOSITORY TYPE CODE TESTS RESULT OUT OF RANGE REFERENCE UNITS LAB L506.0400 0.76-1.46 ng/dL Normal T4 FREE 0.95 DIRECT Performed By: #### L500.4050, L501.03602, L501.9520, L506.0400 #### [facility] [place], [address] CBC W/DIFF, AUTOMATED Collected: 05/24/2017 Status: F Source: [place] 9:42 AM [facility] REPOSITORY TYPE CODE TESTS RESULT OUT OF RANGE REFERENCE UNITS LAB L100.1000 4.4-11.0 K/mm3 Normal WBC 9.9 LAB L100.1200 4.2-5.4 M/mm3 Normal RBC 4.36 LAB L100.1300 12.0-15.0 g/dl Normal HGB 14.6 LAB L100.1400 37-47 % Normal HCT 42.7 LAB L100.1500 81-99 fL Normal MCV 97.9 LAB L100.1600 27.0-32.0 pg High MCH 33.5 LAB L100.1700 32-36 g/gl Normal MCHC 34.2 LAB L100.1810 11.6-14.6 % Normal RDW CV 13.5 LAB L100.1820 35.1-43.9 fl High RDW SD 47.6 LAB L100.1900 150-450 K/mm3 Normal PLT 285 LAB L100.2000 6.2-12.0 fl Normal MPV 9.0 LAB L100.2100 47-70 % Normal NEUT% 64.9 LAB L100.2200 19-41 % Normal LY% 30.7 LAB L100.2300 0-10 % Normal MONO% 3.4 LAB L100.2400 0-5 % Normal EO% 0.4 LAB L100.2500 0-1 % Normal BASO% 0.4 LAB L100.2550 0.0-0.9 % Normal IM GRAN % 0.200 Result Comment: IG% - Immature Granulocytes (promyelocytes, myelocytes and metamyelocytes) > 1% indicates that a LEFT SHIFT is Present. LAB L100.2620 2.0-7.7 X10 3/uL Normal Absolute Neut 6.4 LAB L100.2720 0.83-4.51 X10 3/ul Normal Absolute Lymph 3.03 Performed By: #### L100.0100 #### [facility] [address] [facility] [place], [address] FREE T3 Collected: 05/24/2017 Status: F Source: [place] 9:42 AM [facility] REPOSITORY TYPE CODE TESTS RESULT OUT OF RANGE REFERENCE UNITS LAB L501.88825 2.18-3.98 pg/mL Normal FREE T3 3.0 Performed By: #### L501.44475, L501.9520, L506.0400 #### [facility] [address] [place], [address] THYROID STIM HORMONE Collected: 05/24/2017 Status: F Source: [place] (TSH) 9:42 AM [facility] REPOSITORY TYPE CODE TESTS RESULT OUT OF RANGE REFERENCE UNITS LAB L501.9520 0.358-3.74 uIU/mL Normal TSH 0.68 Performed By: #### L501.82098, L501.9520, L506.0400 #### [facility] [facility] [place], [address] T4 FREE DIRECT Collected: 05/24/2017 Status: F Source: [place] 9:42 AM [facility] REPOSITORY TYPE CODE TESTS RESULT OUT OF RANGE REFERENCE UNITS LAB L506.0400 0.76-1.46 ng/dL Normal T4 FREE 1.04 DIRECT Performed By: #### L501.45349, L501.9520, L506.0400 #### [facility], [address] CBC-COMPLETE BLOOD CNT Collected: 04/11/2017 Status: F Source: [place] NO DIFF 9:05 AM [facility] REPOSITORY Order Comment: Order Date: 07/12/16 Order Info: 54918-9 - CBC TYPE CODE TESTS RESULT OUT OF RANGE REFERENCE UNITS LAB L100.1000 4.4-11.0 K/mm3 Normal WBC 7.1 LAB L100.1200 4.2-5.4 M/mm3 Normal RBC 5.18 LAB L100.1300 12.0-15.0 g/dl High HGB 16.9 LAB L100.1400 37-47 % High HCT 50.9 LAB L100.1500 81-99 fL Normal MCV 98.3 LAB L100.1600 27.0-32.0 pg High MCH 32.6 LAB L100.1700 32-36 g/gl Normal MCHC 33.2 LAB L100.1810 11.6-14.6 % Normal RDW CV 14.4 LAB L100.1820 35.1-43.9 fl High RDW SD 51.5 LAB L100.1900 150-450 K/mm3 Normal PLT 154 LAB L100.2000 6.2-12.0 fl Normal MPV 9.0 Performed By: #### L100.0500, L503.0105, L506.1000, L500.4050, L501.9520 #### [facility] [address] [place], [address] VITAMIN B12 Collected: 04/11/2017 Status: F Source: [place] 9:05 [facility] Order Comment: Order Date: 07/12/16 Order Info: 213-9 - B12 Order Info: 49191-3 - VITD25 TYPE CODE TESTS RESULT OUT OF RANGE REFERENCE UNITS LAB L503.0105 211-911 pg/mL Normal Vitamin B12 649 Performed By: #### L100.0500, L503.0105, L506.1000, L500.4050, L501.9520 #### [facility] [address] [facility] [place], [place], [address] VITAMIN D,25 HYDROXY Collected: 04/11/2017 Status: F Source: [place] 9:05 [facility] Order Comment: Order Date: 07/12/16 Order Info: 2132-9 - B12 Order Info: 53563-3 - VITD25 TYPE CODE TESTS RESULT OUT OF REFERENCE UNITS RANGE LAB L506.1000 19.95-100.01 ng/mL Low Vitamin D 19.9 25-OH Result Comment: Vitamin D 25(OH) Status Range Deficiency <20 ng/mL (50nmol/L) Insuffciency 20 - 30 ng/mL (50 - 75 nmol/L) Sufficiency 30 - 100 ng/mL (75 - 250 nmol/L) Toxicity >100 ng/mL (>250 nmol/L) Performed By: #### L100.0500, L503.0105, L506.1000, L500.4050, L501.9520 #### [facility] [place], [address] COMPREHENSIVE METABOLIC Collected: 04/11/2017 Status: F Source: [place] CHAPPELL 9:05 AM [facility] REPOSITORY Order Comment: PLEASE ADD T4F AND T3F TO BLOOD FROM YESTERDAY MG2 6 E Order Date: 07/12/16 Order Info: 0786-1 - CMP Order Info: 3016-3 - TSH TYPE CODE TESTS RESULT OUT OF RANGE REFERENCE UNITS LAB L501.0100 74-106 mg/dL Normal GLU 77 Result Comment: Please note revised GLUCOSE reference range effective 2017. LAB L501.1000 7-18 mg/dL Normal BUN 9 LAB L501.1100 0.55-1.02 mg/dL Normal CREAT,SERUM 0.76 Result Comment: The validity of the calculated GFR AND GFRAA in patients over 70 years has not been determined. Clinical correlation is essential. LAB L501.1110 >60 mL/min Normal EST GFR 86 Result Comment: Non- GFR Calc LAB L501.1115 >60 mL/min Normal EST GFR - AA 104 Result Comment: GFR Calc LAB L501.1300 10-20 RATIO Normal BUN/CRE 11.8 LAB L501.1500 6.4-8.2 g/dL T Normal PROT 6.7 LAB L501.1800 3.2-5.0 g/dL Normal ALB 3.9 LAB L501.1950 2.2-4.2 g/dL Normal GLOB 2.8 LAB L501.2000 0.9-2.4 RATIO Normal A/G 1.4 LAB L501.2200 8.5-10.1 mg/dL CA Normal 8.5 LAB L501.4100 15-37 U/L Low AST 12 LAB L501.4305 45-117 U/L Normal ALK P 68 LAB L501.4405 13-56 U/L Normal ALT 18 Result Comment: Please note revised ALT reference range effective 2017. LAB L501.4600 0.20-1.00 mg/dL Normal T BILI 0.30 LAB L501.5300 136-145 mmol/L Normal NA 142 LAB L501.5600 3.5-5.1 mmol/L Normal K 4.5 LAB L501.5900 98-107 mmol/L Normal CL 106 LAB L501.6100 21.0-32.0 mmol/L Normal CO2 26.0 LAB L501.6200 5-15 Normal GAP 10 Performed By: #### L100.0500, L503.0105, L506.1000, L500.4050, L501.9520 #### [facility] [address] [place], [address] THYROID STIM HORMONE Collected: 04/11/2017 Status: F Source: [place] (TSH) 9:05 AM [facility] REPOSITORY Order Comment: PLEASE ADD T4F AND T3F TO BLOOD FROM YESTERDAY MG2 6 E Order Date: 07/12/16 Order Info: 0786-1 - CMP Order Info: 3016-3 - TSH TYPE CODE TESTS RESULT OUT OF RANGE REFERENCE UNITS LAB L501.9520 0.358-3.74 uIU/mL High TSH 4.40 Performed By: #### L100.0500, L503.0105, L506.1000, L500.4050, L501.9520 #### [facility] [address] [place], [address] FREE T3 Collected: 04/11/2017 Status: F Source: [place] 9:05 AM [facility] REPOSITORY Order Comment: PLEASE ADD T4F AND T3F TO BLOOD FROM YESTERDAY MG2 6 E Order Date: 07/12/16 Order Info: 0786-1 - CMP Order Info: 3016-3 - TSH TYPE CODE TESTS RESULT OUT OF RANGE REFERENCE UNITS LAB L501.92353 2.18-3.98 pg/mL Normal FREE T3 2.9 Performed By: #### L501.44994, L506.0400 #### [facility] [address] [place], [address] T4 FREE DIRECT Collected: 04/11/2017 Status: F Source: [place] 9:05 AM [facility] REPOSITORY Order Comment: PLEASE ADD T4F AND T3F TO BLOOD FROM YESTERDAY MG2 6 E Order Date: 07/12/16 Order Info: 0786-1 - CMP Order Info: 3016-3 - TSH TYPE CODE TESTS RESULT OUT OF RANGE REFERENCE UNITS LAB L506.0400 0.76-1.46 ng/dL Normal T4 FREE 0.78 DIRECT Performed By: #### L501.90194, L506.0400 #### [facility] [address] [place], [address] ALLERGIES ALLERGIES DATE TYPE / NAME / CODE REACTION SEVERITY SOURCE CODE 11/23/2017 Drug zolpidem Other Unknown [place] Allergy/41 tartrate/[id number] [facility] 6926253( (RXNORM) [facility] CT) Repository 11/23/2017 Drug Penicillins/[id number] Hives Unknown [place] Allergy/41 476(RXNORM) [facility] 11/23/2017 Drug levetiracetam/F0060 PANICK ATTACKS Unknown [place] Allergy/41 63090(RXNORM) [facility]94[facility] 11/23/2017 Drug pregabalin/[id number] Other Unknown [place] Allergy/41 83(RXNORM) [facility] 0045107([facility]) Repository 01/18/2017 DRUG LEVETIRACETAM OTHER: SEE C [address] 8319834( Repository OMED CT) 06/10/2016 DRUG ZOLPIDEM HALLUCINATIO [facility] 2070464( Repository OMED CT) 06/10/2016 DRUG PREGABALIN HALLUCINATIO [facility] 9564446( Repository OMED CT) 06/10/2016 Drug PENICILLINS HIVES~ITCHING~SWE [facility] Class/4[address] [address](SN Repository ED CT) 10/20/2012 DRUG CLONAZEPAM INTOLERANCE [address] 4763695(SN Repository OMED CT) 08/22/2012 DRUG ZOLPIDEM TARTRATE RASH [address] 5952028(SN Repository OMED CT) 08/22/2012 DRUG PREGABALIN [facility] INGREDI/[address] 7971901(SN Repository OMED CT) 10/19/2004 Drug PENICILLINS HIVES [facility] Class/[address] [address](SNOM Repository ED CT) ENCOUNTERS ENCOUNTERS ADMIT/DISCHARGE ACCOUNT NUMBER ADMITTING ENCOUNTER LOCATION SOURCE CLASS 02/13/2018 [id number] [facility] ding:LAB Repository 01/16/2018 [id number] Ambulatory [facility] ding:MFPLAB Repository 12/08/2017 [id number] Ambulatory [facility] ding:MTLAB Repository 11/22/2017 [id number] [facility] ding:HPRAD Repository 11/22/2017/11/23/19 [id number] Ambulatory BMSBuilding: [address] Repository 11/07/2017/11/08/19 [id number] Emergency [address] ding:ED Repository 10/27/2017/10/29/19 [id number] Ambulatory [address] Repository 08/17/2017 [id number] Ambulatory [facility] ding:MRI Repository 07/13/2017/07/14/19 [id number] Unknown [facility]ulatory [facility] [address] [facility] Repository 07/11/2017 [id number] [facility] ding:LAB Repository 05/24/2017 [id number] Ambulatory [facility] ding:MTLAB Repository 04/11/2017 [id number] Ambulatory [facility] ding:MTLAB Repository PAYERS PAYERS ENCOUNTER GUARANTOR PAYER SUBSCRIBER SOURCE 02/13/2018 BARNEY Brewer Primary BARNEY L [facility] [id number] Insurance:[facility] INGALLSDOB: [facility] *IN [facility] [id number] Repository [address] [place] [address] Number: [id number]: (503) [id number] [phone] () Date:[id number]WP: 02/13/2018 Secondary NOT GIVENUNK [place] [facility] Insurance:SELF PAY Hospital INSURANCEPolicy Repository Number: Effective Date:2018-02-13 01/16/2018 BARNEY L Primary BARNEY L [place] [facility] [id number] Insurance:[facility] INGALLSDOB: Hospital ADRIANA LNAPT *IN [facility] [id number] Repository [address] [place] [address] Number: [id number]: 330 [id number] [phone] (HP) Date:3627-41-54CM [address] [address]ZJ: 01/16/2018 Secondary NOT GIVENUNK [place] [facility] Insurance:SELF PAY Hospital INSURANCEPolicy Repository Number: Effective Date:2018-01-16 12/08/2017 BARNEY L Primary BARNEY L [place] [facility] [id number] Insurance:[facility] INGALLSDOB: Hospital ADRIANA LNAPT *IN [facility] [id number] Repository [address] [place] [address] Number: [id number]: 330 [id number] [phone] (HP) Date:9466-32-71CP [address] [address]LE: 12/08/2017 Secondary NOT GIVENUNK [place] [facility] Insurance:SELF PAY Hospital INSURANCEPolicy Repository Number: Effective Date:2017-12-08 11/22/2017 BARNEY L Primary BARNEY L [place] [facility] [id number] Insurance:[facility] INGALLSDOB: Hospital ADRIANA LNAPT *IN [facility] [id number] Repository [address] [place] [address] Number: [id number]: ([phone] [id number] [phone] (HP) Date:3041-85-97HA [address] [address]RW: 11/22/2017 Secondary NOT GIVENUNK [place] [facility] Insurance:SELF PAY Hospital INSURANCEPolicy Repository Number: Effective Date:2017-11-22 11/22/2017 BARNEY L Primary BARNEY L [place] [facility] [id number] Insurance:[employer]ARE [employer] INGALLSDOB: Hospital ADRIANA LNAPT *IN [facility] [id number] Repository [address], [place] Number: [id number]: 330 [id number] [phone] (HP) Date:5155-97-98RZ [address] [address]TW: 11/22/2017 Secondary NOT GIVENUNK [place] [facility] Insurance:SELF PAY Hospital INSURANCEPolicy Repository Number: Effective Date:2017-11-08 11/07/2017 BARNEY L Primary [facility] [id number] Insurance:[facility] INGALLSDOB: Hospital ADRIANA LNAPT *IN [facility] [id number] [facility] [place] [place] Number: [id number]: 330 [id number] [phone] (HP) Date:6609-10-24XZ [address] [address]PF: 11/07/2017 Secondary NOT GIVENUNK [facility] Insurance:SELF PAY Hospital INSURANCEPolicy Repository Number: Effective Date:2017-11-07 08/17/2017 BARNEY L Primary [facility] [id number] Insurance:[facility] INGALLSDOB: Hospital ADRIANA LNAPT *IN [facility] [id number] Repository [place] Number: [id number]: 330 [id number] [phone] (HP) Date:4904-27-25HI [address] [address]NJ: 08/17/2017 Secondary NOT GIVENUNK [place] [facility] Insurance:SELF PAY Hospital INSURANCEPolicy Repository Number: Effective Date:2017-08-09 07/13/2017 [facility] INGALLSDOB: Insurance:DENTAL INGALLSDOB: System [facility] [id number] Number: [address], [place] [id number] [place], [place] [address]Psz: (330) Date:2016-05-21 00340Ipv: (HP) [phone] (HP) 07/11/2017 BARNEY L Primary BARNEY L [place] [facility] [id number] Insurance:[facility] INGALLSDOB: Hospital ADRIANA LNAPT *IN [facility] [id number] Repository [address] [place] [address] Number: [id number]: 330 [id number] [phone] (HP) Date:0832-68-28NE [address] [address]NS: 07/11/2017 Secondary NOT GIVENUNK [place] [facility] Insurance:SELF PAY Hospital INSURANCEPolicy Repository Number: Effective Date:2017-07-11 05/24/2017 BARNEY L Primary BARNEY L [place] [facility] [id number] Insurance:[facility] INGALLSDOB: Hospital ADRAINA LNAPT *IN [facility] [id number] Repository [address] [place] [address], [place] Number: [id number]: 330 [id number] [phone] (HP) Date:1985-38-88GY[address] [address]QT: 05/24/2017 Secondary NOT GIVENUNK [place] [facility] Insurance:SELF PAY Hospital INSURANCEPolicy Repository Number: Effective Date:2017-05-24 04/11/2017 BARNEY L Primary BARNEY L [place] [facility] [id number] Insurance:[facility] INGALLSDOB: Hospital ADRIANA LNAPT *IN [facility] [id number] Repository [address] [place] [address], [place] Number: [id number]: ([phone]) [id number] [phone] (HP) Date:4252-72-44UT [address] [address]QP: 04/11/2017 Secondary NOT GIVENUNK [place] [facility] Insurance:SELF PAY Hospital INSURANCEPolicy Repository Number: Effective Date:2017-04-11
== END ==
PROVIDERS: Family Provider Family Medicine; PCP Family Medicine; Referring Provider Internal Medicine Endocrinology, Diabetes & Metabolism; Visit Provider Internal Medicine Endocrinology, Diabetes & Metabolism
DX: E05.90 Thyrotoxicosis, unspecified without thyrotoxic crisis or storm (principal)
CPT/HCPCS: 36415; 80053; 84439; 84443; 84480; 84481; 85025

== ENCOUNTER → 2018-12-04 11:06 | Outpatient (CLI) | payer MEDICARE, SELFPAY ==
[2018-12-04 12:32] LABS: Erythrocyte Sedimentation Rate 10 mm/hr (0-30)
[2018-12-04 12:42] LABS: Absolute Lymphocyte Count 4.19 X10^3/uL (0.83-4.51); Basophil# 0.07 X10^3/uL; Basophil% 0.6 % (0-1); Eosinophil# 0.11 X10^3/uL; Eosinophils% 0.9 % (0-5); Hematocrit 40.8 % (37-47); Hemoglobin 13.4 g/dL (12.0-15.0); Lymphocyte # 4.19 X10^3/ul (4.0); Lymphocyte % 35.6 % (19-41); Mean Corp Hgb Conc 32.8 g/dL (32-36); Mean Corpuscular Hgb 32.1 pg (27.0-32.0); Mean Corpuscular Volume 97.8 fL (81-99); Mean Platelet Vol. 8.4 fl (6.2-12.0); Monocyte# 0.38 X10^3/uL; Monocyte% 3.2 % (0-10); NRBC Flagged by Analyzer 0 % (0-5); Neutrophil % 59.4 % (47-70); Platelet Count 316 K/mm3 (150-450); RBC Distribution Width CV 13.6 % (11.6-14.6); RBC Distribution Width SD 49.1 fl (35.1-43.9); Red Blood Count 4.17 M/mm3 (4.2-5.4); White Blood Count 11.8 K/mm3 (4.4-11.0)
[2018-12-04 13:08] LABS: Vitamin B12 567 pg/mL (211-911); Vitamin D,25 Hydroxy 18.1 ng/mL (29.95-100.01)
[2018-12-04 13:14] LABS: ALB/GLOB Ratio 1.3 RATIO (0.9-2.4); AST(SGOT) 17 U/L (15-37); Alanine Aminotransfer ALT/SGPT 24 U/L (13-56); Albumin, Serum 4.4 g/dL (3.2-5.0); Alkaline Phosphatase 99 U/L (45-117); Anion Gap 4 (5-15); BUN 8 mg/dL (7-18); BUN/Creat Ratio 9.5 RATIO (10-20); Calcium,Total 9.1 mg/dL (8.5-10.1); Chloride 104 mmol/L (98-107); Creatinine, Serum 0.84 mg/dL (0.55-1.02); EST Glomerular Filtration Rate 76 mL/min (>60); Est Glom Filt Rate - Afr Amer 92 mL/min (>60); Globulin 3.3 g/dL (2.2-4.2); Glucose 82 mg/dL (74-106); Potassium 3.9 mmol/L (3.5-5.1); Prealbumin 23.4 mg/dL (20.0-40.0); Protein, Total 7.7 g/dL (6.4-8.2); Sodium Level 138 mmol/L (136-145); Thyroid Stim Hormone (TSH) 1.94 uIU/mL (0.358-3.74)
== END ==
PROVIDERS: Family Provider Family Medicine; PCP Family Medicine; Visit Provider Family Medicine
DX: E05.90 Thyrotoxicosis, unspecified without thyrotoxic crisis or storm (principal); E53.8 Deficiency of other specified B group vitamins; E55.9 Vitamin D deficiency, unspecified; R63.4 Abnormal weight loss
CPT/HCPCS: 36415; 80053; 82306; 82607; 84134; 84443; 85025; 85652

== ENCOUNTER → 2019-06-28 10:51 | Outpatient (CLI) | payer MEDICARE, MEDICAID, SELFPAY ==
--- NOTE | 2019-06-28 10:55 | RAD_ITS ---
STUDY: X-RAY - LEFT SHOULDER REASON FOR EXAM: Female, 48 years old. Pt fell a week ago, left shoulder pain TECHNIQUE: 4 view(s) of the shoulder. COMPARISON: None. FINDINGS: Normal glenohumeral articulation. Normal acromioclavicular joint. Normal acromion. Normal humeral head and visualized proximal humerus. The soft tissue structures are unremarkable. Normal visualized pulmonary apex. RAD/Shoulder min 2 Views IMPRESSION: Normal x-ray examination of the shoulder. Electronically Signed: Williams Fields, at 12:44 EDT , Service support ,
== END ==
PROVIDERS: PCP Family Medicine; Referring Provider Family Medicine; Visit Provider Family Medicine
DX: M25.512 Pain in left shoulder (principal)
CPT/HCPCS: 73030

== ENCOUNTER → 2019-11-27 07:36 | Outpatient (CLI) | payer MEDICARE, MEDICAID, SELFPAY ==
--- NOTE | 2019-11-27 07:55 | RAD_ITS ---
STUDY: X-RAY - SOFT TISSUE NECK REASON FOR EXAM: Female, 49 years old. LEFT SIDE NECK AND SUPERIOR SHOULDER SWELLING, NKI, TIGHTNESS, PAIN TECHNIQUE: AP and lateral view(s) of the neck were obtained. COMPARISON: None. FINDINGS: Normal visualized nasopharynx, oropharynx, hypopharynx. Normal epiglottis. Normal visualized subglottic tracheal air column. Normal prevertebral soft tissue structures. Normal visualized osseous structures. The soft tissue structures are unremarkable. RAD/Neck for Soft Tissue IMPRESSION: Normal x-ray soft tissue neck. Electronically Signed: Williams Fields, at 8:50 EDT , Service support ,
[2019-11-27 10:34] LABS: Erythrocyte Sedimentation Rate 7 mm/hr (0-30)
[2019-11-27 10:36] LABS: Absolute Lymphocyte Count 2.43 X10^3/uL (0.83-4.51); Basophil# 0.04 X10^3/uL; Basophil% 0.6 % (0-1); Eosinophil# 0.05 X10^3/uL; Eosinophils% 0.7 % (0-5); Hematocrit 44.4 % (37-47); Hemoglobin 14.4 g/dL (12.0-15.0); Lymphocyte # 2.43 X10^3/ul (4.0); Lymphocyte % 35.2 % (19-41); Mean Corp Hgb Conc 32.4 g/dL (32-36); Mean Corpuscular Hgb 31.8 pg (27.0-32.0); Mean Platelet Vol. 8.4 fl (6.2-12.0); Monocyte# 0.33 X10^3/uL; Monocyte% 4.8 % (0-10); NRBC Flagged by Analyzer 0 % (0-5); Neutrophil # 4.04 X10^3/uL (2.7-7.7); Neutrophil % 58.6 % (47-70); Platelet Count 326 K/mm3 (150-450); RBC Distribution Width CV 14.2 % (11.6-14.6); RBC Distribution Width SD 51.4 fl (35.1-43.9); Red Blood Count 4.53 M/mm3 (4.2-5.4); White Blood Count 6.9 K/mm3 (4.4-11.0)
[2019-11-27 10:45] LABS: Vitamin B12 476 pg/mL (211-911)
[2019-11-27 11:05] LABS: ALB/GLOB Ratio 1.1 RATIO (0.9-2.4); AST(SGOT) 14 U/L (15-37); Alanine Aminotransfer ALT/SGPT 18 U/L (13-56); Albumin, Serum 4.2 g/dL (3.2-5.0); Alkaline Phosphatase 105 U/L (45-117); Anion Gap 4 (5-15); BUN 8 mg/dL (7-18); BUN/Creat Ratio 9.7 RATIO (10-20); CRP < 2.90 mg/L (0.0-3.0); Chloride 104 mmol/L (98-107); Creatinine, Serum 0.82 mg/dL (0.55-1.02); EST Glomerular Filtration Rate 78 mL/min (>60); Est Glom Filt Rate - Afr Amer 94 mL/min (>60); Globulin 3.7 g/dL (2.2-4.2); Glucose 97 mg/dL (74-106); Potassium 3.8 mmol/L (3.5-5.1); Protein, Total 7.9 g/dL (6.4-8.2); Sodium Level 138 mmol/L (136-145); Thyroid Stim Hormone (TSH) 0.53 uIU/mL (0.358-3.74)
[2019-11-27 16:25] LABS: Cholesterol 251 mg/dL (200); High Density Lipoprotein 74 mg/dL; Triglycerides 87 mg/dL; Very Low Density Lipoprotein 17 mg/dL (5-40)
[2019-11-27 17:06] LABS: Vitamin D,25 Hydroxy 21.2 ng/mL
== END ==
PROVIDERS: PCP Family Medicine; Referring Provider Family Medicine; Visit Provider Family Medicine
DX: M79.7 Fibromyalgia (principal); R22.1 Localized swelling, mass and lump, neck; E55.9 Vitamin D deficiency, unspecified; E03.9 Hypothyroidism, unspecified; Z72.0 Tobacco use; Z13.220 Encounter for screening for lipoid disorders
CPT/HCPCS: 36415; 80053; 80061; 82306; 82607; 84443; 85025; 85652; 86140

== ENCOUNTER → 2019-12-10 09:40 | Outpatient (CLI) | payer MEDICARE, MEDICAID, SELFPAY ==
--- NOTE | 2019-12-10 09:45 | RAD_ITS ---
STUDY: X-RAY - LEFT HAND REASON FOR EXAM: Left hand pain, fall a month ago, pain worse after lifting a heavy object 4 days ago. TECHNIQUE: 3 view(s) of the hand. COMPARISON: None. FINDINGS: Normal radiocarpal articulation. Normal distal radioulnar joint. Normal visualized carpal bones. Normal carpal articulations Normal carpometacarpal articulation of the thumb. Normal second through fifth carpometacarpal joints. Normal metacarpi. Normal metacarpophalangeal joint of the thumb. Normal interphalangeal joint of the thumb. Normal proximal and distal phalanges of the thumb. Normal metacarpophalangeal joints of the second through fifth fingers. Normal proximal and distal interphalangeal joints of the second through fifth fingers. Normal phalanges of the second through fifth fingers. The soft tissue structures are unremarkable. RAD/Hand Min 3 Views IMPRESSION: Normal x-ray examination of the left hand. Electronically Signed: Rhys Hayden MD at 10:47 EDT Tel , Service support ,
--- NOTE | 2019-12-10 09:45 | RAD_ITS ---
STUDY: X-RAY - LEFT WRIST REASON FOR EXAM: Left wrist pain, fall a month ago, pain worse after lifting injury of the left wrist 4 days ago. TECHNIQUE: 3 view(s) of the wrist were obtained. COMPARISON: None. FINDINGS: Normal visualized distal radius and ulna. Normal radiocarpal articulation. Normal distal radioulnar articulation. Normal carpal bones. Normal carpal articulations. Normal carpometacarpal articulation of the thumb. Normal second through fifth carpometacarpal articulations. Normal visualized metacarpal bones. The soft tissue structures are unremarkable. RAD/Wrist min 3 Views IMPRESSION: Normal x-ray examination of the left wrist. Electronically Signed: Rhys Hayden MD at 10:48 EDT Tel , Service support ,
== END ==
PROVIDERS: PCP Family Medicine; Referring Provider Nurse Practitioner Adult Health; Visit Provider Nurse Practitioner Adult Health
DX: S69.92XS Unspecified injury of left wrist, hand and finger(s), sequela (principal)
CPT/HCPCS: 73110; 73130

== ENCOUNTER → 2019-12-12 13:58 | Outpatient (CLI) | payer MEDICARE, MEDICAID, SELFPAY ==
--- NOTE | 2019-12-12 14:02 | CT_ITS ---
STUDY: CT SOFT TISSUE NECK WITHOUT CONTRAST REASON FOR EXAM: Female, 49 years old. LEFT SUPRACLAVICULAR SWELLING and amp; TINGLING DOWN LEFT ARM RADIATION DOSAGE (If Supplied By Facility): CTDIvol = ( 13.12 ) mGy, DLP = ( 334.30 ) mGycm TECHNIQUE: The patient was scanned in a multi-detector CT scanner. High resolution transaxial imaging was performed without the administration of intravenous contrast material. Sagittal and coronal images were reconstructed. Individualized dose optimization techniques were used for this CT. COMPARISON: None. FINDINGS: Normal bilateral parotid glands. Normal bilateral welfare specialist spaces. Normal bilateral parapharyngeal spaces. Normal bilateral sublingual and submandibular glands and spaces. Normal visualized nasopharynx. Normal retropharyngeal space. Normal perivertebral space. Normal visualized bilateral faucial tonsils. The visualized tongue, tongue base and oropharynx are normal. The visualized cervical lymph nodes (levels I-) are within normal size limits, and maintain normal morphology. There is no demonstrated solid or cystic mass lesion. Normal epiglottis, bilateral vallecula and hypopharynx. The pre-epiglottic and paraglottic adipose spaces are normal. Normal visualized bilateral piriform sinuses, aryepiglottic folds, vocal cords, and arytenoid-cricoid articulations. Normal subglottic trachea. Normal bilateral lobes of the thyroid gland. Normal visualized pulmonary apices. CT/Soft Tissue Neck without Contr IMPRESSION: No masses or lymphadenopathy. Electronically Signed: Gricelda Palma MD at 10:22 EDT Tel , Service support ,
== END ==
PROVIDERS: PCP Family Medicine; Referring Provider Family Medicine; Visit Provider Family Medicine
DX: R22.1 Localized swelling, mass and lump, neck (principal)
CPT/HCPCS: 70490

== ENCOUNTER → 2019-12-17 11:15 | Outpatient (CLI) | payer MEDICARE, MEDICAID, SELFPAY ==
--- NOTE | 2019-12-17 11:19 | RAD_ITS ---
STUDY: X-RAY - LEFT WRIST REASON FOR EXAM: Female, 49 years old. Left wrist injury last week TECHNIQUE: 4 view(s) of the wrist were obtained. COMPARISON: December 10, 2019 left wrist x-ray FINDINGS: Normal visualized distal radius and ulna. Normal radiocarpal articulation. Normal distal radioulnar articulation. Normal carpal bones. Normal carpal articulations. Normal carpometacarpal articulation of the thumb. Normal second through fifth carpometacarpal articulations. Normal visualized metacarpal bones. The soft tissue structures are unremarkable. RAD/Wrist min 3 Views IMPRESSION: Normal x-ray examination of the wrist. Electronically Signed: Melly Martin MD at 4:11 EDT Tel , Service support ,
== END ==
PROVIDERS: PCP Family Medicine; Referring Provider Family Medicine; Visit Provider Family Medicine
DX: S69.92XS Unspecified injury of left wrist, hand and finger(s), sequela (principal)
CPT/HCPCS: 73110

== ENCOUNTER → 2020-04-16 10:18 | Outpatient (CLI) | payer MEDICARE, MEDICAID, SELFPAY | PROVIDERS: PCP Family Medicine; Referring Provider Family Medicine; Visit Provider Family Medicine | DX: N23 Unspecified renal colic (principal) | CPT/HCPCS: 87086; 87088 ==

== ENCOUNTER → 2020-05-27 10:21 | Outpatient (CLI) | payer MEDICARE, MEDICAID, SELFPAY ==
[2020-05-27 12:33] LABS: ALB/GLOB Ratio 1.1 RATIO (0.9-2.4); AST(SGOT) 14 U/L (15-37); Alanine Aminotransfer ALT/SGPT 22 U/L (13-56); Albumin, Serum 4.1 g/dL (3.2-5.0); Alkaline Phosphatase 111 U/L (45-117); Anion Gap 4 (5-15); BUN 8 mg/dL (7-18); BUN/Creat Ratio 10.7 RATIO (10-20); Calcium,Total 8.9 mg/dL (8.5-10.1); Chloride 105 mmol/L (98-107); Cholesterol 189 mg/dL (200); Creatinine, Serum 0.75 mg/dL (0.55-1.02); EST Glomerular Filtration Rate 87 mL/min (>60); Est Glom Filt Rate - Afr Amer 105 mL/min (>60); Free T3 3.1 pg/mL (2.18-3.98); Globulin 3.6 g/dL (2.2-4.2); Glucose 88 mg/dL (74-106); High Density Lipoprotein 64 mg/dL; Potassium 3.8 mmol/L (3.5-5.1); Protein, Total 7.7 g/dL (6.4-8.2); Sodium Level 139 mmol/L (136-145); T4 Free Direct 0.93 ng/dL (0.76-1.46); Thyroid Stim Hormone (TSH) 0.29 uIU/mL (0.358-3.74); Triglycerides 92 mg/dL; Very Low Density Lipoprotein 18 mg/dL (5-40)
== END ==
PROVIDERS: PCP Family Medicine; Referring Provider Internal Medicine Endocrinology, Diabetes & Metabolism; Visit Provider Internal Medicine Endocrinology, Diabetes & Metabolism
DX: E05.90 Thyrotoxicosis, unspecified without thyrotoxic crisis or storm (principal); E06.3 Autoimmune thyroiditis; E05.00 Thyrotoxicosis with diffuse goiter without thyrotoxic crisis or storm; M79.7 Fibromyalgia; E03.9 Hypothyroidism, unspecified; Z72.0 Tobacco use
CPT/HCPCS: 36415; 80053; 80061; 84439; 84443; 84481

== ENCOUNTER → 2020-08-27 11:02 | Outpatient (CLI) | payer MEDICARE, MEDICAID, SELFPAY ==
[2020-08-27 12:38] LABS: T4 Free Direct 0.82 ng/dL (0.76-1.46); Thyroid Stim Hormone (TSH) 0.12 uIU/mL (0.358-3.74)
== END ==
PROVIDERS: PCP Family Medicine; Visit Provider Family Medicine
DX: E03.9 Hypothyroidism, unspecified (principal)
CPT/HCPCS: 36415; 84439; 84443; 84481

== ENCOUNTER → 2020-09-02 10:38 | Outpatient (CLI) | payer MEDICARE, MEDICAID, SELFPAY ==
[2020-09-02 12:09] LABS: Erythrocyte Sedimentation Rate 4 mm/hr (0-30)
[2020-09-02 12:12] LABS: Absolute Lymphocyte Count 3.75 X10^3/uL (0.83-4.51); Absolute Neutrophil Count 2.3 X10^3/uL (2.0-7.7); Basophil# 0.06 X10^3/uL; Basophil% 0.9 % (0-1); Eosinophil# 0.16 X10^3/uL; Eosinophils% 2.3 % (0-5); Hemoglobin 13.2 g/dL (12.0-15.0); Lymphocyte # 3.75 X10^3/ul (0.83-4.51); Lymphocyte % 55.1 % (19-41); Mean Corpuscular Hgb 32.2 pg (27.0-32.0); Mean Corpuscular Volume 97.6 fL (81-99); Mean Platelet Vol. 8.5 fl (6.2-12.0); Monocyte# 0.49 X10^3/uL; Monocyte% 7.2 % (0-10); NRBC Flagged by Analyzer 0 % (0-5); Neutrophil # 2.34 X10^3/uL (2.7-7.7); Neutrophil % 34.4 % (47-70); Platelet Count 298 K/mm3 (150-450); RBC Distribution Width CV 13.6 % (11.6-14.6); RBC Distribution Width SD 49.4 fl (35.1-43.9); White Blood Count 6.8 K/mm3 (4.4-11.0)
[2020-09-02 12:28] LABS: CRP 5.42 mg/L (0.0-3.0)
[2020-09-02 12:30] LABS: ALB/GLOB Ratio 1.2 RATIO (0.9-2.4); AST(SGOT) 12 U/L (15-37); Alanine Aminotransfer ALT/SGPT 14 U/L (13-56); Albumin, Serum 3.8 g/dL (3.2-5.0); Alkaline Phosphatase 76 U/L (45-117); Anion Gap 5 (5-15); BUN 7 mg/dL (7-18); BUN/Creat Ratio 9.7 RATIO (10-20); Calcium,Total 9.2 mg/dL (8.5-10.1); Chloride 103 mmol/L (98-107); Creatinine, Serum 0.72 mg/dL (0.55-1.02); EST Glomerular Filtration Rate 90 mL/min (>60); Est Glom Filt Rate - Afr Amer 109 mL/min (>60); Globulin 3.2 g/dL (2.2-4.2); Glucose 62 mg/dL (74-106); Potassium 3.8 mmol/L (3.5-5.1); Sodium Level 141 mmol/L (136-145)
== END ==
PROVIDERS: PCP Family Medicine; Referring Provider Family Medicine; Visit Provider Family Medicine
DX: R10.9 Unspecified abdominal pain (principal)
CPT/HCPCS: 36415; 80053; 85025; 85652; 86140

== ENCOUNTER → 2020-09-02 13:40 | Outpatient (CLI) | payer MEDICARE, MEDICAID, SELFPAY | PROVIDERS: PCP Family Medicine; Visit Provider Family Medicine | DX: R10.9 Unspecified abdominal pain (principal) | CPT/HCPCS: 36415; 80053; 85025; 85652; 86140; 87086; 87088 ==

== ENCOUNTER → 2020-10-07 11:41 | Outpatient (CLI) | payer MEDICARE, MEDICAID, SELFPAY ==
--- NOTE | 2020-10-07 11:45 | RAD_ITS ---
STUDY: X-RAY - THORACIC SPINE REASON FOR EXAM: Female, 50 years old. BACK PAIN TECHNIQUE: 3 view(s) of the thoracic spine were obtained. COMPARISON: None. FINDINGS: Normal kyphosis of the thoracic spine. There is no substantial scoliosis. Normal thoracic vertebrae and endplates. Mild disc space narrowing. Neurostimulator leads over the mid and lower thoracic spine RAD/Thoracic Spine 2 Views IMPRESSION: Mild degenerative changes, no acute findings Electronically Signed: Robert Pearce MD at 10:14 EDT , Service support ,
== END ==
PROVIDERS: PCP Family Medicine; Referring Provider Family Medicine; Visit Provider Family Medicine
DX: M54.6 Pain in thoracic spine (principal)
CPT/HCPCS: 72070

== ENCOUNTER → 2020-10-20 11:09 | Outpatient (CLI) | payer MEDICARE, MEDICAID, SELFPAY ==
[2020-10-20 11:35] LABS: BUP Internal Control LINE = VALID (VALID); Buprenorphine Drug Screen Negative (<10 ng/mL)
[2020-10-20 11:46] LABS: Amphetamine Urine VISTA NEGATIVE (<1000 ng/mL); Barbiturate Urine VISTA NEGATIVE (< 200 ng/mL); Benzodiazepine Urine VISTA NEGATIVE (< 200 ng/mL); Cocaine Urine VISTA NEGATIVE (< 300 ng/mL); Ecstacy Urine VISTA NEGATIVE (< 500 ng/mL); Methadone Urine VISTA NEGATIVE (< 300 ng/mL); PCP Urine VISTA NEGATIVE (< 25 ng/mL); THC Urine VISTA POSITIVE (< 50 ng/mL); Vista UDS pH Range 7
== END ==
PROVIDERS: PCP Family Medicine; Referring Provider Anesthesiology Pain Medicine; Visit Provider Anesthesiology Pain Medicine
DX: F11.20 Opioid dependence, uncomplicated (principal)
CPT/HCPCS: 80307

== ENCOUNTER 2021-05-14 12:08 | Outpatient (CLI) | payer MEDICARE, MEDICAID, SELFPAY ==
[2021-05-14 15:17] LABS: Absolute Lymphocyte Count 2.71 X10^3/uL (0.83-4.51); Absolute Neutrophil Count 5.3 X10^3/uL (2.0-7.7); Basophil# 0.06 X10^3/uL; Basophil% 0.7 % (0-1); Eosinophil# 0.04 X10^3/uL; Eosinophils% 0.5 % (0-5); Hematocrit 41.7 % (37-47); Hemoglobin 14.2 g/dL (12.0-15.0); Lymphocyte # 2.71 X10^3/ul (0.83-4.51); Lymphocyte % 31.4 % (19-41); Mean Corp Hgb Conc 34.1 g/dL (32-36); Mean Corpuscular Hgb 34.2 pg (27.0-32.0); Mean Corpuscular Volume 100.5 fL (81-99); Mean Platelet Vol. 8.8 fl (6.2-12.0); Monocyte# 0.49 X10^3/uL; Monocyte% 5.7 % (0-10); NRBC Flagged by Analyzer 0 % (0-5); Neutrophil # 5.31 X10^3/uL (2.7-7.7); Neutrophil % 61.4 % (47-70); Platelet Count 337 K/mm3 (150-450); RBC Distribution Width CV 12.9 % (11.6-14.6); RBC Distribution Width SD 48.4 fl (35.1-43.9); Red Blood Count 4.15 M/mm3 (4.2-5.4); White Blood Count 8.6 K/mm3 (4.4-11.0)
[2021-05-14 15:27] LABS: Erythrocyte Sedimentation Rate 17 mm/hr (0-30)
[2021-05-14 16:00] LABS: ALB/GLOB Ratio 1.2 RATIO (0.9-2.4); AST(SGOT) 22 U/L (15-37); Alanine Aminotransfer ALT/SGPT 53 U/L (13-56); Albumin, Serum 4.1 g/dL (3.2-5.0); Alkaline Phosphatase 143 U/L (45-117); Anion Gap 4 (5-15); BUN 7 mg/dL (7-18); BUN/Creat Ratio 9.9 RATIO (10-20); CRP < 2.90 mg/L (0.0-3.0); Calcium,Total 8.8 mg/dL (8.5-10.1); Chloride 108 mmol/L (98-107); EST Glomerular Filtration Rate 92 mL/min (>60); Est Glom Filt Rate - Afr Amer 112 mL/min (>60); Globulin 3.4 g/dL (2.2-4.2); Glucose 95 mg/dL (74-106); Potassium 3.8 mmol/L (3.5-5.1); Protein, Total 7.5 g/dL (6.4-8.2); Sodium Level 138 mmol/L (136-145); Thyroid Stim Hormone (TSH) 1.32 uIU/mL (0.358-3.74)
[2021-05-15 10:12] LABS: Syphilis Antibodies Non-reactive
[2021-05-16 19:07] LABS: HCV Quant. RNA PCR HCV Not Detected IU/mL (.)
[2021-05-17 15:46] LABS: ANTINUCLEAR ANTIBODIES DIRECT Negative (Negative)
== END 2021-05-14 23:59 | disposition home or self-care (01) ==
LOC: MFPLAB 12:15
PROVIDERS: PCP Family Medicine; Referring Provider Family Medicine; Visit Provider Family Medicine
DX: R21 Rash and other nonspecific skin eruption (principal); E03.9 Hypothyroidism, unspecified; B19.20 Unspecified viral hepatitis C without hepatic coma; R22.1 Localized swelling, mass and lump, neck
CPT/HCPCS: 36415; 80053; 84443; 85025; 85652; 86038; 86140; 86780; 87522

== ENCOUNTER 2021-07-23 09:44 | Emergency (ER) | payer MEDICARE, MEDICAID, SELFPAY ==
[2021-07-23 09:44] VITALS: BP 128/78; PULSE 95; RESP 20; TEMP 36.4; O2SAT 98; BMI 23.9
[2021-07-23] MEDS: Morphine 4 MG/ML Syringe 6 MG IM (10:40)
--- NOTE | 2021-07-23 11:10 | EDS_ITS ---
HPI History of Present Illness Chief Complaint: Back Informant: patient Narrative Narrative: Patient is a 50-year-old female presenting with worsening of her chronic back pain. Patient states that she is followed with Dr. Hernandez for back injections for years. She feels injections not lasting as long. Last injection was the end of April. She had worsening back pain for the past month. Right greater than left. Pain radiates down her right thigh into her knee. She states she did have a fall 2 months ago but no recent falls. Saw her primary care doctor 1 month ago when she did have a urine test which was normal. She is currently on gabapentin, Cymbalta and baclofen as well as an NSAID that she cannot recall the name of. Chart view shows its Nabumetone. Patient does not use any assistive devices to ambulate. She lives alone with her dog. Symptoms are worse when she bends or twists. Denies any bowel or bladder incontinence. Denies any saddle anesthesia. No fever or chills. No other complaints at this time. Prior similar symptoms: With Prior Back Pain PFSH PFSH Home Medications baclofen 20 mg PO TID 01/06/15 [History Last Taken Unknown] albuterol sulfate 1 puff INHALATION PRN PRN 07/23/21 [History Last Taken Unknown] cholecalciferol (vitamin D3) [Vitamin D3] 50 mcg PO DAILY 07/23/21 [History Last Taken Unknown] duloxetine 30 mg PO DAILY 07/23/21 [History Last Taken Unknown] duloxetine 60 mg PO DAILY 07/23/21 [History Last Taken Unknown] gabapentin 800 mg PO TIDCM 07/23/21 [History Last Taken Unknown] hydroxyzine HCl 25 - 50 mg PO QHS 07/23/21 [History Last Taken Unknown] fxcjojmhazas-[id number] acid [Centrum Women] 1 tab PO DAILY 07/23/21 [History Last Taken Unknown] nabumetone 500 mg PO BID 07/23/21 [History Last Taken Unknown] oxycodone 5 mg PO Q6H PRN 4 Days #16 tab 07/23/21 [Rx Last Taken Unknown] umeclidinium-vilanterol [Anoro Ellipta] 1 inh INHALATION DAILY 07/23/21 [History Last Taken Unknown] Allergy/AdvReac Type Severity Reaction Status Date / Time levetiracetam [From [facility]] Allergy PANICK Verified 07/23/21 09:46 ATTACKS Penicillins [PCN] Allergy Hives Verified 07/23/21 09:46 pregabalin [From Lyrica] Allergy Other Verified 07/23/21 09:46 zolpidem tartrate Allergy Other Verified 07/23/21 09:46 [From Ambien] Social History (Updated 11/23/17 @ 16:[address] Lorraine Griffiths MD) Smoking Status: Current every day smoker tobacco type: cigarettes ROS ROS ED Constitutional Constitutional ED: Denies chills or fever(s) Eyes Eyes: Denies blurry vision or change in vision ENT ENT ED: Denies sore throat Cardiovascular Cardiovascular: Denies chest pain Respiratory/Chest Respiratory/Chest: Denies dyspnea Gastrointestinal Gastrointestinal: Denies abdominal pain, constipation, diarrhea or vomiting Genitourinary Genitourinary ED: Denies dysuria, hematuria or urinary frequency Musculoskeletal Musculoskeletal: Reports back pain; Denies arthralgias or myalgias Integumentary Denies rash Neurologic Neurologic: Reports weakness; Denies headache(s) or paresthesias Psychiatric Psychiatric: Denies depression EXAM Physical Exam Const Vital Signs: 07/23/21 09:44 Temperature 97.5 F L Temperature Source Temporal Pulse Rate 95 Respiratory Rate 20 H Blood Pressure 128/78 H Blood Pressure Mean 94 Pulse Ox 98 Oxygen Delivery Method Room Air Positive well nourished and well developed Constitutional Narrative: laying on left side in bed crying. General Appearance ED: well developed HEENT Reports moist mucous membranes Negative for trauma Eyes PERRL and EOMs intact bilaterally Neck supple General: Negative for tenderness Resp normal respiratory effort and clear to auscultation bilaterally Cardio regular rate, regular rhythm and no murmurs Cardio Narrative: 2+ DP pulses GI normal to inspection, nondistended, normoactive bowel sounds Palpation: Negative for mass Back/Spine Back/Spine Narrative: No midline tenderness. Patient has significant right lower lumbar paravertebral tenderness to palpation. Does not tolerate straight leg test. Extremity normal to inspection Extremity Narrative: No obvious deformity of the lower extremities. General Extremety ED: Negative for edema General Extremity: Negative for edema Neuro oriented x3 and no sensory deficits noted Neuro Narrative: Patient is decreased strength with plantar flexion of the right foot which she contributes to her pain. Equal dorsiflexion. Sensorium / Orientation: alert Psych mental status grossly normal Mood & Affect: tearful Skin no rashes or lesions noted MDM MDM MDM Narrative Medical decision making narrative: Patient's evaluated for worsening of her chronic low back pain. Patient received 2 doses of pain medication, IM morphine and then IM Dilaudid. Patient has improvement after the IM Dilaudid. She is now ambulatory in the emergency room. States her pain is back to her baseline. Spoke with Dr. Berkowitz, pain management, who is agreeable with placing the patient on a short course of pain medication until he can see her this following Tuesday. Patient is agreeable with this plan of care. Patient is counseled return precautions. She verbalized agreement nursing with this plan. Patient discharged home in improved and stable condition. Patient does not have finding consistent with cauda equina syndrome. Not appear to have acute neurologic process and I do not think further imaging is indicated at this time. Discharge Plan Triage Chief Complaint: Back ED Provider: Naima Page Dx/Rx/DC Orders Clinical Impression: Acute exacerbation of chronic low back pain, Acute right-sided back pain with sciatica Instructions: ED Back Pain (Acute or Chronic), ED Sciatica Prescriptions: New oxycodone 5 mg tablet 5 mg PO Q6H PRN (Reason: pain) 4 Days Qty: 16 RF: 0 No Action baclofen 20 MG tablet 20 mg PO TID RF: 0 gabapentin 800 mg tablet 800 mg PO TIDCM RF: 0 hydroxyzine HCl 25 mg tablet 25 - 50 mg PO QHS RF: 0 albuterol sulfate 90 mcg/actuation HFA aerosol inhaler 1 puff INHALATION PRN PRN (Reason: Shortness Of Breath Or Wheezing) RF: 0 nabumetone 500 mg tablet 500 mg PO BID RF: 0 cholecalciferol (vitamin D3) [Vitamin D3] 25 mcg (1,000 unit) Capsule 50 mcg PO DAILY RF: 0 duloxetine 30 mg capsule,delayed release(DR/EC) 30 mg PO DAILY RF: 0 duloxetine 60 mg capsule,delayed release(DR/EC) 60 mg PO DAILY RF: 0 Centrum Women 18-400 mg-mcg Tablet 1 tab PO DAILY RF: 0 Anoro Ellipta 62.5-25 mcg/actuation blister with device 1 inh INHALATION DAILY RF: 0 Primary Care Provider: Jim Panchal Referrals: Jim Panchal MD [Primary Care Provider] - Activity Restrictions/Additional Instructions: You might need to take a stool softener while on oxycodone as this does cause constipation. MiraLAX is a good 1. Call Dr. Berkowitz's office to schedule appointment for Tuesday per his instructions. Disposition Disposition: Home, Self Care
[2021-07-23] MEDS: HYDROmorphone 0.5 MG/0.5 ML SYRINGE IM (11:26)
[2021-07-23] MEDS: oxyCODONE 5 MG Tablet PO (12:18)
[2021-07-23 12:19] VITALS: BP 105/47; PULSE 70; RESP 16; O2SAT 94
== END 2021-07-23 12:27 | disposition home or self-care (01) ==
PROVIDERS: Emergency Provider Emergency Medicine; PCP Family Medicine; Visit Provider Emergency Medicine
DX: M54.40 Lumbago with sciatica, unspecified side (principal); G89.29 Other chronic pain; Z79.899 Other long term (current) drug therapy; F17.210 Nicotine dependence, cigarettes, uncomplicated
CPT/HCPCS: 96372; 99282

== ENCOUNTER 2021-07-25 12:03 | Emergency (ER) | payer MEDICARE, MEDICAID, SELFPAY ==
[2021-07-25 12:04] VITALS: BP 97/52; PULSE 94; RESP 18; TEMP 36.8; O2SAT 96; BMI 25.7
--- NOTE | 2021-07-25 12:18 | RAD_ITS ---
STUDY: X-RAY - RIGHT WRIST REASON FOR EXAM: Female, 50 years old. fall, wrist pain TECHNIQUE: 3 view(s) of the wrist were obtained. COMPARISON: None. FINDINGS: Normal visualized distal radius and ulna. Normal radiocarpal articulation. Normal distal radioulnar articulation. Normal carpal bones. Normal carpal articulations. Normal carpometacarpal articulation of the thumb. Normal second through fifth carpometacarpal articulations. Normal visualized metacarpal bones. The soft tissue structures are unremarkable. RAD/Wrist min 3 Views IMPRESSION: Normal x-ray examination of the wrist. Electronically Signed: Sher Bryant MD at 13:04 EDT ,
--- NOTE | 2021-07-25 12:18 | RAD_ITS ---
STUDY: X-RAY - LUMBAR SPINE REASON FOR EXAM: Female, 50 years old. pain TECHNIQUE: 5 view(s) of the lumbar spine were obtained. COMPARISON: 11/22/2017 FINDINGS: Normal lumbar lordosis. Mild levoscoliosis centered at L3. There is a normal alignment of the vertebrae. Normal vertebral bodies and endplates. Focal disc space narrowing and osteophyte formation at L5/S1 consistent with degenerative disc disease. Dorsal column spinal stimulator in the lower thoracic spine. The soft tissue structures are unremarkable. RAD/L/S Spine Min 4 Views IMPRESSION: Mild levoscoliosis with focal degenerative disc disease at L5/S1. Electronically Signed: Sher Bryant MD at 13:06 EDT ,
--- NOTE | 2021-07-25 12:20 | EDS_ITS ---
HPI <JR Hart - Last Filed: 07/25/21 14:18> History of Present Illness Chief Complaint: Fall Narrative Narrative: 50-year-old female with history of chronic back pain presents to the emergency department with acute on chronic back pain. 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 Patient states that she fell today because her right leg gave out to her right side. Patient has right hand pain, right wrist pain as well as her acute on chronic lower back pain. Patient denies any head injury. Patient denies any bowel or bladder incontinence, any fevers or chills PFSH <JR Hart - Last Filed: 07/25/21 14:18> PFS Medical History (Updated 07/25/21 @ 13:56 by JR Hart) Fibromyalgia Graves' disease Luis Enrique's disease Spine fracture Home Medications baclofen 20 mg PO TID 01/06/15 [History Last Taken Unknown] albuterol sulfate 1 puff INHALATION PRN PRN 07/23/21 [History Last Taken Unknown] cholecalciferol (vitamin D3) [Vitamin D3] 50 mcg PO DAILY 07/23/21 [History Last Taken Unknown] duloxetine 30 mg PO DAILY 07/23/21 [History Last Taken Unknown] duloxetine 60 mg PO DAILY 07/23/21 [History Last Taken Unknown] gabapentin 800 mg PO TIDCM 07/23/21 [History Last Taken Unknown] hydroxyzine HCl 25 - 50 mg PO QHS 07/23/21 [History Last Taken Unknown] deyfyrzciyix-nkel-tkpwn acid [Centrum Women] 1 tab PO DAILY 07/23/21 [History Last Taken Unknown] nabumetone 500 mg PO BID 07/23/21 [History Last Taken Unknown] oxycodone 5 mg PO Q6H PRN 4 Days #16 tab 07/23/21 [Rx Last Taken Unknown] umeclidinium-vilanterol [Anoro Ellipta] 1 inh INHALATION DAILY 07/23/21 [History Last Taken Unknown] Allergy/AdvReac Type Severity Reaction Status Date / Time levetiracetam [From [facility]] Allergy PANICK Verified 07/23/21 09:46 ATTACKS Penicillins [PCN] Allergy Hives Verified 07/23/21 09:46 pregabalin [From Lyrica] Allergy Other Verified 07/23/21 09:46 zolpidem tartrate Allergy Other Verified 07/23/21 09:46 [From Ambien] Social History (Updated 11/23/17 @ 16:[address] Lorraine Griffiths MD) Smoking Status: Current every day smoker tobacco type: cigarettes ROS <JR Hart - Last Filed: 07/25/21 14:18> ROS ED ROS Narrative Constitutional: Negative for fever, chills, weight loss, weakness Eyes: Negative for vision loss, vision change, double vision ENT: Negative for any sore throat, ear pain, congestion Cardiovascular: Negative for any chest pain, tightness, palpitations Respiratory: Negative for any cough, sputum production, hemoptysis, dyspnea, dyspnea on exertion, orthopnea Gastrointestinal: Negative for any abdominal pain, nausea, vomiting, diarrhea, constipation, blood in stool, blood in vomit : Negative for any urinary frequency, dysuria, retention, blood in urine Muscle skeletal: Negative for any muscle joint pain, stiffness, myalgias, arthralgias, neck pain. Positive for back pain, right hand pain, right wrist pain Neurological: Negative for any headache, syncope, numbness or tingling, dizziness Skin: Negative for any rashes, lumps, itching, abrasions, lacerations Psychiatric: Negative for any depression, anxiety, stress, suicidal ideation, homicidal ideation Hematologic: Negative for any easy bruising, excessive bruising, easy bleeding Allergies: Negative for any eczema, hives, rash EXAM <JR Hart - Last Filed: 07/25/21 14:18> Physical Exam Narrative Exam Narrative: Vital signs reviewed. HEET: Head normocephalic atraumatic, TMs clear bilaterally. Posterior pharynx is clear, moist mucous membranes. Nares clear bilaterally. Neck: Supple with no lymphadenopathy or tenderness. No signs of meningismus, negative jolt sign. Cardiac: Regular rate and rhythm no murmurs gallops or rubs, equal peripheral pulses bilaterally. Respiratory: Lungs clear to auscultation bilaterally. No chest tenderness. Abdomen: Soft, nontender, nondistended. No abdominal bruit or pulsatile masses. No hepatosplenomegaly Extremities: No peripheral edema, no signs of gross trauma or deformity. Active full range of motion of all extremities. Patient is moving bilateral legs. Patient has no deformity to the right hand, right wrist. Patient is +2 radial pulse. Negative for any neurological focal deficits. Neuro: Cranial nerves II through XII intact, no focal neurological deficits. Skin: Clean dry and intact with no rash, purpura, petechiae, vesicles or pustules. Backs/flank: No CVA tenderness, patient has pain throughout the entire lumbar spine, no deformity. Psych: Normal mood and affect. No SI, HI or acute psychosis. Const Vital Signs: 07/25/21 12:04 07/25/21 12:08 07/25/21 14:14 Temperature 98.3 F Temperature Source Temporal Pulse Rate 94 80 Respiratory Rate 18 18 Respiratory Effort Normal Respiratory Depth Normal Respiratory Pattern Normal Blood Pressure 97/52 L 117/51 L Blood Pressure Mean 67 73 Pulse Ox 96 97 Oxygen Delivery Method Room Air Room Air Room Air Positive well nourished and well developed General Appearance ED: well developed <Dr. Naima Page DO - Last Filed: 07/29/21 07:02> Physical Exam Const Vital Signs: 07/25/21 12:04 07/25/21 12:08 07/25/21 14:14 Temperature 98.3 F Temperature Source Temporal Pulse Rate 94 80 Respiratory Rate 18 18 Respiratory Effort Normal Respiratory Depth Normal Respiratory Pattern Normal Blood Pressure 97/52 L 117/51 L Blood Pressure Mean 67 73 Pulse Ox 96 97 Oxygen Delivery Method Room Air Room Air Room Air MDM <JR Hart - Last Filed: 07/25/21 14:18> [facility] Narrative Medical decision making narrative: Patient arrives with acute on chronic back pain, recent fall with pain to the right hand, right wrist. Patient was given IM Dilaudid 1 mg, IM Norflex. She did receive x-rays of the right hand, right wrist as well as the lumbar sacral spine, these were all read by the ER physician here, they were read as negative for any acute osseous abnormality. On reassessment, the patient was still pretty sleepy from the pain medicine. Patient states that she did feel better after receiving pain medicine. At this time, I believe the patient be stable for discharge when she is more awake. She will follow-up with her pain management physician on Tuesday of this upcoming week which is roughly 3 days away. She is instructed to return for any worsening pain. There is no indication of any cauda equina, spinal abscess. I believe that she is suffering from acute on chronic pain. She does not need any prescriptions from home. She was given 16 Percocet 2 days ago from this emergency department. Patient stable for discharge instructed return for worsening symptoms. Radiography Diagnostic Testing: Clinical Impression(s) from Imaging Studies Lumbar Spine X-Ray 07/25/21 12:18 IMPRESSION: Mild levoscoliosis with focal degenerative disc disease at L5/S1. Electronically Signed: Sher Bryant MD at 13:06 EDT Reading Location ID and State: [id number] / [employer] Tel , Service support , Wrist X-Ray 07/25/21 12:18 IMPRESSION: Normal x-ray examination of the wrist. Electronically Signed: Sher Bryant MD at 13:04 EDT Reading Location ID and State: [id number] / [employer] , Service support , Hand X-Ray 07/25/21 12:40 IMPRESSION: Normal x-ray examination of the hand. Electronically Signed: Sher Bryant MD at 13:03 EDT Reading Location ID and State: [id number] / [employer] , Service support , <Dr. Naima Page, DO - Last Filed: 07/29/21 07:02> [facility] Narrative Medical decision making narrative: I have personally performed a face to face assessment of the patient and have reviewed the BRYNN Note. I performed a substantive portion of the visit including all aspects of the following. My carrington findings include: History is Patient is a 50 year old female with chronic pain presenting with acute worsening of her low back pain as well as right upper extremity pain associated with a mechanical fall. Patient follows with pain management. She is currently on oxycodone for her chronic pain. She denies any loss of consciousness or head injury. No cauda equina symptoms. On exam patient is normocephalic/atraumatic. No hemotympanum. Neck is supple with normal range of motion. Lungs are clear to auscultation bilaterally. No chest wall crepitus. Abdomen soft and nontender. Patient has no midline back tenderness to palpation. Decreased strength with plantar flexion of the right foot, chronic for patient. No obvious deformity of the extremities. Neurovascularly intact. Medical Decision Making Patient given IM Dilaudid for pain control and a dose of Norflex. She had a mechanical fall. Imaging does not show any any acute fracture. X-rays interpreted by myself as well as radiology. Patient is somnolent after receiving the medication and is monitored until she has more return to her baseline. Is discharged home. To follow-up with pain management. Other additions or changes: [None] Radiography Diagnostic Testing: Clinical Impression(s) from Imaging Studies Lumbar Spine X-Ray 07/25/21 12:18 IMPRESSION: Mild levoscoliosis with focal degenerative disc disease at L5/S1. Electronically Signed: Sher Bryant MD at 13:06 EDT Reading Location ID and State: [id number] / [employer] , Service support , Wrist X-Ray 07/25/21 12:18 IMPRESSION: Normal x-ray examination of the wrist. Electronically Signed: Sher Bryant MD at 13:04 EDT , Hand X-Ray 07/25/21 12:40 IMPRESSION: Normal x-ray examination of the hand. Electronically Signed: Sher Bryant MD at 13:03 EDT , Discharge Plan Triage Chief Complaint: Fall ED Midlevel Provider: Lázaro Irene ED Provider: Naima Page Dx/Rx/DC Orders Clinical Impression: Back pain, chronic Instructions: Managing Chronic Pain: Medicines, Managing Chronic Pain Prescriptions: No Action baclofen 20 MG tablet 20 mg PO TID RF: 0 gabapentin 800 mg tablet 800 mg PO TIDCM RF: 0 hydroxyzine HCl 25 mg tablet 25 - 50 mg PO QHS RF: 0 albuterol sulfate 90 mcg/actuation HFA aerosol inhaler 1 puff INHALATION PRN PRN (Reason: Shortness Of Breath Or Wheezing) RF: 0 nabumetone 500 mg tablet 500 mg PO BID RF: 0 cholecalciferol (vitamin D3) [Vitamin D3] 25 mcg (1,000 unit) Capsule 50 mcg PO DAILY RF: 0 duloxetine 30 mg capsule,delayed release(DR/EC) 30 mg PO DAILY RF: 0 duloxetine 60 mg capsule,delayed release(DR/EC) 60 mg PO DAILY RF: 0 Centrum Women 18-400 mg-mcg Tablet 1 tab PO DAILY RF: 0 Anoro Ellipta 62.5-25 mcg/actuation blister with device 1 inh INHALATION DAILY RF: 0 oxycodone 5 mg tablet 5 mg PO Q6H PRN (Reason: pain) 4 Days Qty: 16 RF: 0 Primary Care Provider: Jim Panchal Referrals: Jim Panchal MD [Primary Care Provider] - Activity Restrictions/Additional Instructions: Follow-up as scheduled with your pain management doctor this upcoming week. Print Language: German Disposition Disposition: Home, Self Care Discharge Date/Time: 07/25/21 14:24
[2021-07-25] MEDS: Orphenadrine 60 MG/2 ML Ampul IM (12:26)
[2021-07-25] MEDS: HYDROmorphone 1 MG/ML Syringe IM (12:26)
--- NOTE | 2021-07-25 12:40 | RAD_ITS ---
STUDY: X-RAY - RIGHT HAND REASON FOR EXAM: Female, 50 years old. fall, hand pain TECHNIQUE: 3 view(s) of the hand. COMPARISON: None. FINDINGS: Normal radiocarpal articulation. Normal distal radioulnar joint. Normal visualized carpal bones. Normal carpal articulations Normal carpometacarpal articulation of the thumb. Normal second through fifth carpometacarpal joints. Normal metacarpi. Normal metacarpophalangeal joint of the thumb. Normal interphalangeal joint of the thumb. Normal proximal and distal phalanges of the thumb. Normal metacarpophalangeal joints of the second through fifth fingers. Normal proximal and distal interphalangeal joints of the second through fifth fingers. Normal phalanges of the second through fifth fingers. The soft tissue structures are unremarkable. RAD/Hand Min 3 Views IMPRESSION: Normal x-ray examination of the hand. Electronically Signed: Sher Bryant MD at 13:03 EDT ,
[2021-07-25 14:14] VITALS: BP 117/51; PULSE 80; RESP 18; O2SAT 97
--- NOTE | 2021-08-07 13:55 | CM.ED ---
Social Work Note SW received referral for possible ED Care Plan for pt. SW reviewed chart. Pt has had 2 ED visits for back pain (07/23/21 and 07/25/2021). Pt's last ED visit before these two time was in 2018. SW will continue to monitor and watch. Liilbeth Lyle SHAREBR[employer]ER, PHOTOGRAPHIC PLATEMAKER
== END 2021-07-25 14:24 | disposition home or self-care (01) ==
PROVIDERS: Emergency Provider Emergency Medicine; PCP Family Medicine; Visit Provider Emergency Medicine
DX: M54.9 Dorsalgia, unspecified (principal); G89.29 Other chronic pain; F17.210 Nicotine dependence, cigarettes, uncomplicated
CPT/HCPCS: 72110; 73110; 73130; 96372; 99285

== ENCOUNTER 2021-08-29 13:56 | Emergency (ER) | payer MEDICARE, MEDICAID, SELFPAY ==
[2021-08-29 13:56] VITALS: BP 132/67; PULSE 99; RESP 14; TEMP 36.4; O2SAT 95; BMI 24.0
--- NOTE | 2021-08-29 14:33 | ED.VIS.BACK ---
HPI History of Present Illness Chief Complaint: Back Informant: patient Narrative Narrative: Patient is here for, the same thing. She states she has a history of back pain going back many years. It used to be she could get injections it would last for a year. Then they lasted 6 months 3 months and now they are down to about 3 weeks. She did have an injection about 4 5 weeks ago. The pain has been coming back. She is on gabapentin. She occasionally takes oxycodone when it flares up. She called Dr. Berkowitz who she sees she sees in pain management he referred her in here as he is not able to prescribe meds over the weekend. He will see her on Tuesday. She states yesterday she moved from the second floor to the first floor apartment. She did not do any caring but she did walk up and down a lot and she did cleaning. This just aggravated her back. Its along the lower lumbar area more on the right upper buttock and radiates into the posterior aspect of the right thigh. No numbness tingling weakness distally. No bowel bladder dysfunction. She there is no trauma. No recent fevers or chills. Nothing consistently makes it better or worse. She has a nerve stimulator in place for about 9 years but it is no longer functional. [facility] Medical History Fibromyalgia Graves' disease Luis Enrique's disease Spine fracture Home Medications baclofen 20 mg tablet 20 mg PO TID 01/06/15 [History Last Taken Unknown] albuterol sulfate 90 mcg/actuation aerosol inhaler 1 puff inhalation PRN PRN Shortness Of Breath Or Wheezing 07/23/21 [History Last Taken Unknown] cholecalciferol (vitamin D3) 25 mcg (1,000 unit) capsule (Vitamin D3) 50 mcg PO DAILY 07/23/21 [History Last Taken Unknown] duloxetine 30 mg capsule,delayed release 30 mg PO DAILY 07/23/21 [History Last Taken Unknown] duloxetine 60 mg capsule,delayed release 60 mg PO DAILY 07/23/21 [History Last Taken Unknown] gabapentin 800 mg tablet 800 mg PO TIDCM 07/23/21 [History Last Taken Unknown] hydroxyzine HCl 25 mg tablet 25 - 50 mg PO QHS 07/23/21 [History Last Taken Unknown] multivitamin-ferrous fumarate-folic acid 18 mg-400 mcg tablet (Centrum Women) 1 tab PO DAILY 07/23/21 [History Last Taken Unknown] nabumetone 500 mg tablet 500 mg PO BID 07/23/21 [History Last Taken Unknown] oxycodone 5 mg tablet 5 mg PO Q6H PRN pain 4 days #16 tabs 07/23/21 [Rx Last Taken Unknown] umeclidinium 62.5 mcg-vilanterol 25 mcg/actuation powdr for inhalation (Anoro Ellipta) 1 inh inhalation DAILY 07/23/21 [History Last Taken Unknown] oxycodone-acetaminophen 5 mg-325 mg tablet (Percocet) 1 tab PO Q6H PRN pain 3 days #12 tabs 08/29/21 [Rx Last Taken Unknown] Allergy/AdvReac Type Severity Reaction Status Date / Time levetiracetam [From Keppra] Allergy PANICK Verified 08/29/21 14:00 ATTACKS Penicillins [PCN] Allergy Hives Verified 08/29/21 14:00 pregabalin [From Lyrica] Allergy Other Verified 08/29/21 14:00 zolpidem tartrate Allergy Other Verified 08/29/21 14:00 [From Ambien] Social History Smoking Status: Current every day smoker tobacco type: cigarettes ROS ROS ED Constitutional Constitutional ED: Denies chills or fever(s) ENT ENT ED: Denies rhinorrhea Cardiovascular Cardiovascular: Denies chest pain or palpitations Respiratory/Chest Respiratory/Chest: Denies dyspnea Gastrointestinal Gastrointestinal: Denies abdominal pain, constipation, diarrhea, melena, nausea or vomiting Genitourinary Genitourinary ED: Denies dysuria or hematuria Musculoskeletal Musculoskeletal: Reports back pain Integumentary Denies rash Neurologic Neurologic: Denies headache(s), paresthesias or weakness Endocrine Endocrinology: Denies polydipsia or polyuria Hematologic/Lymphatic Hematologic/Lymphatic: Denies easy bleeding or easy bruising Allergic/Immunologic Allergic/Immunologic ED: Denies urticaria EXAM Physical Exam Const Vital Signs: 08/29/21 13:56 Temperature 97.5 F L Temperature Source Temporal Pulse Rate 99 Respiratory Rate 14 Blood Pressure 132/67 H Blood Pressure Mean 88 Pulse Ox 95 Oxygen Delivery Method Room Air Positive well nourished and well developed General Appearance ED: well developed HEENT Reports moist mucous membranes Eyes PERRL Neck no JVD Resp normal respiratory effort Cardio regular rate and regular rhythm GI normal to inspection, nondistended, normoactive bowel sounds, soft to palpation, non-tender and non-distended Narrative: No CVA tenderness. Back/Spine Back/Spine Narrative: Patient does have some paraspinal tenderness more on the right than the left. She has some soreness around the upper SI joint on the right. Mild sciatic notch tenderness. Her motion sensation is a great below that. She is actually laying in bed lifting her legs and moving them [id number] as it decreases the pain for her. Extremity normal to inspection General Extremety ED: Negative for edema or tenderness General Extremity: Negative for edema Neuro Sensorium / Orientation: alert; Negative for confused, lethargic or stuporous Psych mental status grossly normal Skin Skin Narrative: No vesicles or rash. MDM MDM MDM Narrative Medical decision making narrative: I will give the patient dose of pain meds here. She has contacted her physician. I did online prescribing report. Her last prescription for oxycodone was in June. She is not on regular narcotics even though she is on regular meds. She will follow-up with her pain physician on Tuesday. Return with worsening pain, fevers, numbness weakness bowel or bladder dysfunction. Discharge Plan Triage Chief Complaint: Back ED Provider: Gold Tong Dx/Rx/DC Orders Clinical Impression: Acute exacerbation of chronic low back pain Instructions: ED Back Pain (Acute or Chronic) Prescriptions: New oxycodone-acetaminophen [Percocet] 5-325 mg tablet 1 tab PO Q6H PRN (Reason: pain) 3 Days Qty: 12 0RF No Action baclofen 20 MG tablet 20 mg PO TID Label Comments: FIBROMYALGIA gabapentin 800 mg tablet 800 mg PO TIDCM Label Comments: take 1 tablet by mouth three times a day hydroxyzine HCl 25 mg tablet 25 - 50 mg PO QHS Label Comments: take 1 TO 2 tablets by mouth at bedtime albuterol sulfate 90 mcg/actuation HFA aerosol inhaler 1 puff INHALATION PRN PRN (Reason: Shortness Of Breath Or Wheezing) Label Comments: inhale 2 puffs by mouth four times a day if needed for wheezing or cough nabumetone 500 mg tablet 500 mg PO BID Label Comments: take 1 tablet by mouth twice a day cholecalciferol (vitamin D3) [Vitamin D3] 25 mcg (1,000 unit) Capsule 50 mcg PO DAILY duloxetine 30 mg capsule,delayed release(DR/EC) 30 mg PO DAILY Label Comments: take 1 capsule by mouth once daily duloxetine 60 mg capsule,delayed release(DR/EC) 60 mg PO DAILY Label Comments: take 1 capsule by mouth once daily Centrum Women 18-400 mg-mcg Tablet 1 tab PO DAILY Anoro Ellipta 62.5-25 mcg/actuation blister with device 1 inh INHALATION DAILY Label Comments: inhale 1 puff by mouth and INTO THE LUNGS once daily oxycodone 5 mg tablet 5 mg PO Q6H PRN (Reason: pain) 4 Days Qty: 16 0RF Primary Care Provider: Jim Panchal Referrals: Víctor Berkowitz MD [STAFF PHYSICIAN] - Keep Cole appointment Jim Panchal MD [Primary Care Provider] - Disposition Disposition: Home, Self Care
[2021-08-29] MEDS: Morphine 4 MG/ML Syringe IM (14:47)
== END 2021-08-29 15:26 | disposition home or self-care (01) ==
PROVIDERS: Emergency Provider Emergency Medicine; PCP Family Medicine; Visit Provider Emergency Medicine
DX: M54.50 Low back pain, unspecified (principal); G89.29 Other chronic pain; F17.210 Nicotine dependence, cigarettes, uncomplicated
CPT/HCPCS: 96372; 99282

== ENCOUNTER → 2021-09-16 | Outpatient (CLI) | payer MEDICARE, MEDICAID, SELFPAY ==
[2021-09-16 10:34] LABS: ALB/GLOB Ratio 1.1 RATIO (0.9-2.4); AST(SGOT) 17 U/L (15-37); Alanine Aminotransfer ALT/SGPT 21 U/L (13-56); Albumin, Serum 3.6 g/dL (3.2-5.0); Alkaline Phosphatase 78 U/L (45-117); Anion Gap 4 (5-15); BUN 10 mg/dL (7-18); BUN/Creat Ratio 13.2 RATIO (10-20); Calcium,Total 8.9 mg/dL (8.5-10.1); Chloride 108 mmol/L (98-107); Creatinine, Serum 0.76 mg/dL (0.55-1.02); EST Glomerular Filtration Rate 85 mL/min (>60); Est Glom Filt Rate - Afr Amer 102 mL/min (>60); Free T3 2.8 pg/mL (2.18-3.98); Globulin 3.2 g/dL (2.2-4.2); Glucose 98 mg/dL (74-106); Potassium 4.2 mmol/L (3.5-5.1); Protein, Total 6.8 g/dL (6.4-8.2); Sodium Level 143 mmol/L (136-145)
[2021-09-16 10:51] LABS: Vitamin D,25 Hydroxy 43.8 ng/mL
== END | disposition home or self-care (01) ==
PROVIDERS: PCP Family Medicine; Referring Provider Internal Medicine Endocrinology, Diabetes & Metabolism; Visit Provider Internal Medicine Endocrinology, Diabetes & Metabolism
DX: E05.00 Thyrotoxicosis with diffuse goiter without thyrotoxic crisis or storm (principal); E55.9 Vitamin D deficiency, unspecified; R76.8 Other specified abnormal immunological findings in serum
CPT/HCPCS: 36415; 80053; 82306; 84439; 84443; 84481

== ENCOUNTER → 2021-09-21 | Outpatient (CLI) | payer MEDICARE, MEDICAID, SELFPAY ==
--- NOTE | 2021-09-21 07:15 | CT_ITS ---
STUDY: CT LUMBAR SPINE WITHOUT CONTRAST REASON FOR EXAM: Female, 50 years old. LOW BACK PAIN RADIATION DOSAGE (If Supplied By Facility): CTDIvol = ( 13.82 ) mGy, DLP = ( 353.11 ) mGycm TECHNIQUE: The patient was scanned in a multi detector CT scanner. High resolution transaxial imaging was performed. Images were obtained from L1 to S1 vertebral level. Sagittal and coronal images were reconstructed. Individualized dose optimization techniques were used for this CT. COMPARISON: None FINDINGS: Normal lumbar lordosis. There is a minimal levoscoliosis of the lumbar spine. Normal vertebrae of the lumbar spine. L1-2: Minimal anterior spondylosis. Normal disc height and morphology. Normal bilateral facet joints. Normal central canal and bilateral lateral recesses. Normal bilateral intervertebral neural foramina. L2-3: Normal endplates. Normal disc height and morphology. Normal bilateral facet joints. Normal central canal and bilateral lateral recesses. Normal bilateral intervertebral neural foramina. L3-4: Mild degree of diffuse posterior disc bulge. Mild degree of bilateral neural foraminal stenosis. L4-5: Mild degree of diffuse posterior disc bulge. Mild degree of bilateral neural foraminal stenosis. L5-S1: Marked degree of disc space narrowing with subchondral sclerosis. Stable minimal retrolisthesis of L5 on S1. Anterior spondylosis. No significant stenosis seen. Atherosclerotic aortic plaque formation. CT/Spine Lumbar without Contrast IMPRESSION: Multilevel degenerative changes, as described above. Electronically Signed: Williams Fields MD at 9:42 EDT ,
== END | disposition home or self-care (01) ==
LOC: CT 07:13
PROVIDERS: PCP Family Medicine; Referring Provider Anesthesiology Pain Medicine; Visit Provider Anesthesiology Pain Medicine
DX: M96.1 Postlaminectomy syndrome, not elsewhere classified (principal)
CPT/HCPCS: 72131

== ENCOUNTER 2022-03-23 06:49 | Emergency (ER) | payer MEDICARE, MEDICAID, SELFPAY ==
[2022-03-23 06:50] VITALS: BP 142/80; PULSE 86; RESP 18; TEMP 35.7; O2SAT 98; BMI 24.8
--- NOTE | 2022-03-23 07:46 | EDS_ITS ---
HPI HPI - Fall History of Present Illness Chief Complaint: Fall Informant: patient Occured/Mechanism Occurred: Days Mechanism/Context: Yes same level fall and Yes trip Usually ambulates: Without assistance Pain/Injury Pain Location: back Quality of Pain: Dull and Aching Current Severity: Mild Maximum Severity: Mild Associated Symptoms Associated Symptoms: Negative for Parasthesias, Weakness, Loss of function, Inability to ambulate, Loss of consciousness or Amnesia Narrative Narrative: 51-year-old female has chronic back pain as a neurostimulator placed over her right lower back buttock area. Lost her balance and fell on Tuesday. When she landed she cut her right lower lateral thigh. She did not hit her head no LOC. She is on no blood thinners. This is the first time she is being seen for this fall. Complaining of pain to her buttock. Prior similar symptoms: Yes Recent Illness/Hospitalization: No PFSH PFS Medical History Arthritis Back pain Fibromyalgia Graves' disease Luis Enrique's disease Hepatitis History of pain when walking History of steroid therapy Hx of ovarian cyst Smoker Spine fracture Thyroid disease Wears dentures Wears glasses Home Medications baclofen 20 mg tablet 20 mg PO TID 01/06/15 [History Last Taken Unknown] albuterol sulfate 90 mcg/actuation aerosol inhaler 1 puff inhalation PRN PRN Shortness Of Breath Or Wheezing 07/23/21 [History Last Taken Unknown] cholecalciferol (vitamin D3) 25 mcg (1,000 unit) capsule (Vitamin D3) 50 mcg PO DAILY 07/23/21 [History Last Taken Unknown] duloxetine 30 mg capsule,delayed release 30 mg PO DAILY 07/23/21 [History Last Taken Unknown] duloxetine 60 mg capsule,delayed release 60 mg PO DAILY 07/23/21 [History Last Taken Unknown] gabapentin 800 mg tablet 800 mg PO TIDCM 07/23/21 [History Last Taken Unknown] umeclidinium 62.5 mcg-vilanterol 25 mcg/actuation powdr for inhalation (Anoro Ellipta) 1 inh inhalation DAILY 07/23/21 [History Last Taken Unknown] oxycodone-acetaminophen 5 mg-325 mg tablet (Percocet) 1 tab PO Q6H PRN pain 3 days #12 tabs 08/29/21 [Rx Last Taken Unknown] amitriptyline 25 mg tablet 25 - 50 mg PO QHS 02/10/22 [History Last Taken Unkn own] methimazole 5 mg tablet 5 mg PO MOTUTHFRSA 02/10/22 [History Last Taken Unknown] valacyclovir 1 gram tablet 1,000 mg PO DAILY 02/10/22 [History Last Taken Unknown] Allergy/AdvReac Type Severity Reaction Status Date / Time levetiracetam [From Keppra] Allergy PANICK Verified 02/10/22 09:57 ATTACKS Penicillins [PCN] Allergy Hives Verified 02/10/22 09:57 pregabalin [From Lyrica] Allergy Other Verified 02/10/22 09:57 zolpidem tartrate Allergy Other Verified 02/10/22 09:57 [From Ambien] Surgical History History of surgery Hx laparoscopic cholecystectomy Hx of tubal ligation Social History Smoking Status: Current every day smoker tobacco type: cigarettes ROS ROS ED ROS Narrative Denies recent illness. Chronic back pain. Review of Systems ROS Unobtainable: Denies due to encephalopathy Constitutional Constitutional ED: Denies chills or fever(s) Eyes Eyes: Denies blurry vision ENT ENT ED: Denies ear pain Cardiovascular Cardiovascular: Denies chest pain Respiratory/Chest Respiratory/Chest: Denies cough or dyspnea Gastrointestinal Gastrointestinal: Denies abdominal pain, constipation, diarrhea, melena, nausea or vomiting Genitourinary Genitourinary ED: Denies dysuria or hematuria Musculoskeletal Musculoskeletal: Reports back pain; Denies arthralgias Integumentary Denies abscess Neurologic Neurologic: Denies headache(s) Psychiatric Psychiatric: Denies anxiety Endocrine Endocrinology: Denies polydipsia Hematologic/Lymphatic Hematologic/Lymphatic: Denies easy bleeding Allergic/Immunologic Allergic/Immunologic ED: Denies mouth swelling or tongue swelling EXAM Physical Exam Narrative Exam Narrative: Well-appearing 51-year-old female. Vital signs are stable afebrile. H EENT exam unremarkable. Atraumatic. Pupils round reactive light. Scalp nontender. C-spine nontender. Trachea midline. Lungs clear to auscultation bilaterally. Heart regular rhythm no murmur. Chest wall nontender. Ribs nontender. Abdomen soft nontender. Pelvic girdle intact. Moving all 4 extremities. She has a 1 inch laceration that is 4 days old on the right lower lateral thigh. There is no signs of infection. No redness or warmth. No bleeding. It is healing appropriately. She has normal flexion-extension of both hips, knees ankles and feet. Normal range of motion. Upper extremities are nontender with 5/5 concept artist strength. Back there is a bruise on her right lower rib cage but is nontender. There is no crepitance. There is no bony deformities. Back spine and posterior ribs are all nontender. Neurologically she is awake alert with no focal motor deficits. She does have a neurostimulator in her right buttock area. Const Vital Signs: 03/23/22 06:50 Temperature 96.2 F L Temperature Source Temporal Pulse Rate 86 Respiratory Rate 18 Blood Pressure 142/80 H Blood Pressure Mean 100 Pulse Ox 98 Oxygen Delivery Method Room Air Positive well nourished and well developed; Negative for obese, cachectic, contractures or unkempt General Appearance ED: well developed and NAD; Negative for unkempt, cachectic, contractures or other Nutritional Appearance: Negative for cachectic or obese HEENT Reports normocephalic atraumatic; Negative for trauma, contusion, hematoma or tenderness Eyes PERRL and EOMs intact bilaterally General Eye ED: Negative for pale conjunctiva or scleral icterus Neck full ROM, no lymphadenopathy and supple General: Negative for tenderness Chest Wall inspection of chest normal and palpation of chest normal Chest: Negative for other Resp normal respiratory effort, no retractions and clear to auscultation bilaterally Effort and Inspection: Negative for pain with movement Auscultation: Negative for rales, rhonchi or wheezes Cardio regular rate, regular rhythm, S1 normal heart sound, S2 normal heart sound and no murmurs Rate: Negative for bradycardia or tachycardic Rhythm: Negative for abnormal rhythm Bruits: Negative for other GI non-tender, non-distended and no masses Inspection: Negative for abdominal distention Auscultation: normoactive bowel sounds Palpation: soft; Negative for guarding or rebound tenderness present Back/Spine no CVA tenderness General Back: Negative for CVA tenderness Cervical Spine: Negative for cervical spine tenderness Thoracic Spine / Upper Back: Negative for ROM limited, pain with ROM or thoracic spinal tenderness Lumbar Spine / Lower Back: lumbar spinal tenderness; Negative for paraspinal muscle tenderness or straight leg raise negative bilaterally Neuro oriented x3, CN's II-XII intact bilaterally, moves all extremities and no focal motor deficits Zaira Coma Scale: document GCS findings Spontaneous Obeys Commands Oriented 15 Sensorium / Orientation: alert, oriented to person, oriented to place, oriented to time and orientation impaired; Negative for confused, lethargic or stuporous Motor Exam: strength 5/5 throughout Psych mental status grossly normal and thought process normal Appearance: Negative for unkempt Attitude: No agitated Mood & Affect: Negative for depressed Skin Skin Narrative: 1 inch laceration right lower lateral thigh. Well-healing. No infection. No bleeding or site. General Skin Exam: other Lesions: no lesions Rashes: no rashes MDM MDM MDM Narrative Medical decision making narrative: 51-year-old fell on Tuesday 4 days ago. Has a healing laceration that does not need nor should be repaired at this time. She and I discussed x-ray she deferred any x-rays to her hip or femur. Her back does not need any x-rays. She is acute on chronic back pain and has known back pain for years with a neurostimulator and sees pain management. Patient is comfortable being discharged home. She does not need any imaging. Nor does she want any. Discharge Plan Triage Chief Complaint: Fall Other Complaint: Laceration ED Provider: Ricardo Hernandez Dx/Rx/DC Orders Clinical Impression: Fall, Back contusion, Laceration of leg, Chronic back pain Instructions: ED Back Contusion Prescriptions: No Action baclofen 20 MG tablet 20 mg PO TID Label Comments: FIBROMYALGIA gabapentin 800 mg tablet 800 mg PO TIDCM Label Comments: take 1 tablet by mouth three times a day albuterol sulfate 90 mcg/actuation HFA aerosol inhaler 1 puff INHALATION PRN PRN (Reason: Shortness Of Breath Or Wheezing) Label Comments: inhale 2 puffs by mouth four times a day if needed for wheezing or cough cholecalciferol (vitamin D3) [Vitamin D3] 25 mcg (1,000 unit) Capsule 50 mcg PO DAILY duloxetine 30 mg capsule,delayed release(DR/EC) 30 mg PO DAILY Label Comments: take 1 capsule by mouth once daily duloxetine 60 mg capsule,delayed release(DR/EC) 60 mg PO DAILY Label Comments: take 1 capsule by mouth once daily Anoro Ellipta 62.5-25 mcg/actuation blister with device 1 inh INHALATION DAILY Label Comments: inhale 1 puff by mouth and INTO THE LUNGS once daily oxycodone-acetaminophen [Percocet] 5-325 mg tablet 1 tab PO Q6H PRN (Reason: pain) 3 Days Qty: 12 0RF valacyclovir 1 gram tablet 1,000 mg PO DAILY Label Comments: TAKE 1 TABLET BY MOUTH TWICE DAILY FOR 7 DAYS amitriptyline 25 mg tablet 25 - 50 mg PO QHS Label Comments: TAKE 1-2 TABLETS BY MOUTH AT BEDTIME methimazole 5 mg tablet 5 mg PO MOTUTHFRSA Label Comments: TAKE 1 TABLET BY MOUTH ONCE DAILY (SKIP TUESDAY AND TUESDAY) Primary Care Provider: Jim Panchal Referrals: Jim Panchal MD [Primary Care Provider] - 1 Week if not improving Activity Restrictions/Additional Instructions: Ice to all sore areas. Motrin and Tylenol for pain. Keep your right leg laceration clean. Apply antibiotic ointment daily. If you see any signs of infection such as redness, warmth, streaks, pus or fever return. At this time it is healing nicely. Follow-up with your pain management doctor as needed. Your primary care physician if not improving. Disposition Disposition: Home, Self Care
== END 2022-03-23 08:01 | disposition home or self-care (01) ==
PROVIDERS: Emergency Provider Emergency Medicine; PCP Family Medicine; Visit Provider Emergency Medicine
DX: S20.229A Contusion of unspecified back wall of thorax, initial encounter (principal); S71.111A Laceration without foreign body, right thigh, initial encounter; M54.9 Dorsalgia, unspecified; G89.29 Other chronic pain; F17.210 Nicotine dependence, cigarettes, uncomplicated; W18.30XA Fall on same level, unspecified, initial encounter
CPT/HCPCS: 99283

== ENCOUNTER → 2022-03-25 | Outpatient (CLI) | payer MEDICARE, MEDICAID, SELFPAY ==
--- NOTE | 2022-03-25 10:54 | RAD_ITS ---
STUDY: X-RAY - LEFT KNEE REASON FOR EXAM: Female, 51 years old. Pain after fall. TECHNIQUE: 3 view(s) of the knee. COMPARISON: None. FINDINGS: Normal visualized distal femur. Normal visualized proximal tibia and fibula. Normal proximal tibiofibular articulation. Normal medial femorotibial compartment. Normal lateral femorotibial compartment. Normal patellofemoral articulation. Normal visualized soft tissues. RAD/Knee 3 Views IMPRESSION: Normal x-ray examination of the knee. Electronically Signed: Evelio Fontanez, at 13:21 EST ,
--- NOTE | 2022-03-25 10:54 | RAD_ITS ---
STUDY: X-RAY - RIGHT FOOT CLINICAL: Female, 51 years old. Pain after fall. TECHNIQUE: 3 view(s) of the foot. COMPARISON: None. FINDINGS: Normal talus, calcaneus, and tarsal bones. Normal visualized subtalar, talonavicular, calcaneocuboid, tarsal and tarsometatarsal articulations. Normal metatarsi. Mild arthrosis of the MTP and IP joints with minimal hammertoe deformities. Normal soft tissues. RAD/Foot min 3 Views IMPRESSION: Mild arthrosis of the MTP and IP joints with minimal hammertoe deformities. No acute abnormality or erosive changes. Electronically Signed: Evelio Fontanez, at 13:21 EST ,
== END | disposition home or self-care (01) ==
PROVIDERS: PCP Family Medicine; Referring Provider Nurse Practitioner Family; Visit Provider Nurse Practitioner Family
DX: M79.671 Pain in right foot (principal); M25.562 Pain in left knee
CPT/HCPCS: 73562; 73630

== ENCOUNTER 2022-04-11 13:50 | Emergency (ER) | payer MEDICARE, MEDICAID, SELFPAY ==
[2022-04-11 13:50] VITALS: BP 143/75; PULSE 114; RESP 16; TEMP 36.6; O2SAT 97; BMI 23.1
[2022-04-11] MEDS: Orphenadrine 60 MG/2 ML Ampul IM (14:34)
[2022-04-11] MEDS: HYDROmorphone 1 MG/ML Syringe IM (14:34)
--- NOTE | 2022-04-11 14:34 | EX.ED.DYSGE1 ---
HPI <JR Hart - Last Filed: 04/11/22 15:19> History of Present Illness Chief Complaint: Back Narrative Narrative: 51-year-old female with a long history of anxiety, depression, chronic back pain who is currently in pain management. Patient is currently waiting to get a pain pump in place. Patient does see pain management here, she recently got 84 5 mg Percocet on March 31, 2022, she also receives gabapentin. Patient states over the last 48 hours, the pain in her thoracic spine has been unbearable. Patient states that she is having severe muscle spasms. She denies any falls, denies any recent injury. Patient denies any bowel or bladder cons. Denies any fever or chills. Patient has been to the ER before for pain control. [facility] [place] <JR Hart - Last Filed: 04/11/22 15:19> [facility] Medical History Arthritis Back pain Fibromyalgia Graves' disease Luis Enrique's disease Hepatitis History of pain when walking History of steroid therapy Hx of ovarian cyst Smoker Spine fracture Thyroid disease Wears dentures Wears glasses Home Medications baclofen 20 mg tablet 20 mg PO TID 01/06/15 [History Last Taken Unknown] albuterol sulfate 90 mcg/actuation aerosol inhaler 1 puff inhalation PRN PRN Shortness Of Breath Or Wheezing 07/23/21 [History Last Taken Unknown] cholecalciferol (vitamin D3) 25 mcg (1,000 unit) capsule (Vitamin D3) 50 mcg PO DAILY 07/23/21 [History Last Taken Unknown] duloxetine 30 mg capsule,delayed release 30 mg PO DAILY 07/23/21 [History Last Taken Unknown] duloxetine 60 mg capsule,delayed release 60 mg PO DAILY 07/23/21 [History Last Taken Unknown] gabapentin 800 mg tablet 800 mg PO TIDCM 07/23/21 [History Last Taken Unknown] umeclidinium 62.5 mcg-vilanterol 25 mcg/actuation powdr for inhalation (Anoro Ellipta) 1 inh inhalation DAILY 07/23/21 [History Last Taken Unknown] oxycodone-acetaminophen 5 mg-325 mg tablet (Percocet) 1 tab PO Q6H PRN pain 3 days #12 tabs 07/02/22 [Rx Last Taken Unknown] amitriptyline 25 mg tablet 25 - 50 mg PO QHS 02/10/22 [History Last Taken Unknown] methimazole 5 mg tablet 5 mg PO MOTUTHFRSA 02/10/22 [History Last Taken Unknown] valacyclovir 1 gram tablet 1,000 mg PO DAILY 02/10/22 [History Last Taken Unknown] Allergy/AdvReac Type Severity Reaction Status Date / Time levetiracetam [From Keppra] Allergy PANICK Verified 04/11/22 13:52 ATTACKS Penicillins [PCN] Allergy Hives Verified 04/11/22 13:52 pregabalin [From Lyrica] Allergy Other Verified 04/11/22 13:52 zolpidem tartrate Allergy Other Verified 04/11/22 13:52 [From Ambien] Surgical History History of surgery Hx laparoscopic cholecystectomy Hx of tubal ligation Social History Smoking Status: Current every day smoker tobacco type: cigarettes ROS <OTTONIEL HartC - Last Filed: 04/11/22 15:19> ROS ED ROS Narrative Constitutional: Negative for fever, chills, weight loss, weakness Eyes: Negative for vision loss, vision change, double vision ENT: Negative for any sore throat, ear pain, congestion Cardiovascular: Negative for any chest pain, tightness, palpitations Respiratory: Negative for any cough, sputum production, hemoptysis, dyspnea, dyspnea on exertion, orthopnea Gastrointestinal: Negative for any abdominal pain, nausea, vomiting, diarrhea, constipation, blood in stool, blood in vomit : Negative for any urinary frequency, dysuria, retention, blood in urine Muscle skeletal: Negative for any muscle joint pain, stiffness, myalgias, arthralgias, neck pain. Positive for thoracic back pain Neurological: Negative for any headache, syncope, numbness or tingling, dizziness Skin: Negative for any rashes, lumps, itching, abrasions, lacerations Psychiatric: Negative for any depression, anxiety, stress, suicidal ideation, homicidal ideation Hematologic: Negative for any easy bruising, excessive bruising, easy bleeding Allergies: Negative for any eczema, hives, rash EXAM <JR Hart - Last Filed: 04/11/22 15:19> Physical Exam Narrative Exam Narrative: Vital signs reviewed. HEET: Head normocephalic atraumatic, TMs clear bilaterally. Posterior pharynx is clear, moist mucous membranes. Nares clear bilaterally. Neck: Supple with no lymphadenopathy or tenderness. No signs of meningismus, negative jolt sign. Cardiac: Regular rate and rhythm no murmurs gallops or rubs, equal peripheral pulses bilaterally. Respiratory: Lungs clear to auscultation bilaterally. No chest tenderness. Abdomen: Soft, nontender, nondistended. No abdominal bruit or pulsatile masses. No hepatosplenomegaly Extremities: No peripheral edema, no signs of gross trauma or deformity. Active full range of motion of all extremities. Ambulatory. Equal strength throughout lower extremities. Neuro: Cranial nerves II through XII intact, no focal neurological deficits. Skin: Clean dry and intact with no rash, purpura, petechiae, vesicles or pustules. Backs/flank: No CVA tenderness, no midline spinal tenderness, no deformity. Negative for any red flag signs. No midline spinal tenderness. Patient is more towards the lateral sides of the thoracic spine. Patient complains of more of a pressure, seizure-like muscle spasm. Psych: Normal mood and affect. No SI, HI or acute psychosis. Const Vital Signs: 04/11/22 13:50 Temperature 98 F Temperature Source Temporal Pulse Rate 114 H Respiratory Rate 16 Blood Pressure 143/75 H Blood Pressure Mean 97 Pulse Ox 97 Oxygen Delivery Method Room Air Positive well nourished and well developed General Appearance ED: well developed <Dr. Jozef Ventura DO - Last Filed: 04/11/22 21:15> Physical Exam Const Vital Signs: 04/11/22 13:50 Temperature 98 F Temperature Source Temporal Pulse Rate 114 H Respiratory Rate 16 Blood Pressure 143/75 H Blood Pressure Mean 97 Pulse Ox 97 Oxygen Delivery Method Room Air MDM <JR Hart - Last Filed: 04/11/22 15:19> [facility] Treatment and Re-Evaluation Narrative: Patient appears to be in mild distress secondary to back pain, patient presents to the emergency department for acute on chronic mid to lower back pain. Patient's physical examination yields no red flag signs. There is no evidence to suspect any spinal abscess, cauda equina. There is no evidence of trauma, no falls. Patient did receive IM dose of Dilaudid, Norflex. On reassessment, the patient was feeling much better, she was ambulating in the room much better. She will continue to follow-up with pain management and use her medications at home. Patient received no prescriptions here. Patient is happy with the plan of care. She has a ride that she will get to go home. She was given return precaution. <Dr. Jozef Ventura, DO - Last Filed: 04/11/22 21:15> MDM MDM Narrative Medical decision making narrative: Interventions / MDM: Differential diagnosis:Acute on chronic thoracic pain. Muscle strain. Diagnosis considered but do not suspect: N/A My EKG interpretation: N/A Imaging independently reviewed and interpreted by myself: N/A External documents reviewed: N/A Test considered but not ordered:N/A ED course: Attending note: Patient seen and evaluated with communications instructor. I perform my own [id number] evaluation. I agree with the plan of work-up.Chronic lower thoracic pain worsening over the last 2 hours. No traumas. No loss of bowel or bladder control. Followed by pain management with injection she states there is a planned surgical intervention in 2 weeks. She is on Percocet that does not help. Reports this is known by her pain doctor. Exam uncomfortable nontoxic. Back with no erythema. Patient with no cauda equina symptoms. No fevers. Treated with IM pain medicines. Patient understands cannot write prescriptions. She will follow-up with her pain management doctor. Re-evaluation: stable Disposition discussed with patient/family/significant other: Case discussed with consulting clinician: N/A Lab Data Attestation: I reviewed the patient's lab results. Discharge Plan Triage Chief Complaint: Back ED Midlevel Provider: Lázaro Irene ED Provider: Jozef Ventura Dx/Rx/DC Orders Clinical Impression: Acute exacerbation of chronic low back pain, Muscle spasm Instructions: ED Muscle Spasm Prescriptions: No Action baclofen 20 MG tablet 20 mg PO TID Label Comments: FIBROMYALGIA gabapentin 800 mg tablet 800 mg PO TIDCM Label Comments: take 1 tablet by mouth three times a day albuterol sulfate 90 mcg/actuation HFA aerosol inhaler 1 puff INHALATION PRN PRN (Reason: Shortness Of Breath Or Wheezing) Label Comments: inhale 2 puffs by mouth four times a day if needed for wheezing or cough cholecalciferol (vitamin D3) [Vitamin D3] 25 mcg (1,000 unit) Capsule 50 mcg PO DAILY duloxetine 30 mg capsule,delayed release(DR/EC) 30 mg PO DAILY Label Comments: take 1 capsule by mouth once daily duloxetine 60 mg capsule,delayed release(DR/EC) 60 mg PO DAILY Label Comments: take 1 capsule by mouth once daily Anoro Ellipta 62.5-25 mcg/actuation blister with device 1 inh INHALATION DAILY Label Comments: inhale 1 puff by mouth and INTO THE LUNGS once daily oxycodone-acetaminophen [Percocet] 5-325 mg tablet 1 tab PO Q6H PRN (Reason: pain) 3 Days Qty: 12 0RF valacyclovir 1 gram tablet 1,000 mg PO DAILY Label Comments: TAKE 1 TABLET BY MOUTH TWICE DAILY FOR 7 DAYS amitriptyline 25 mg tablet 25 - 50 mg PO QHS Label Comments: TAKE 1-2 TABLETS BY MOUTH AT BEDTIME methimazole 5 mg tablet 5 mg PO MOTUTHFRSA Label Comments: TAKE 1 TABLET BY MOUTH ONCE DAILY (SKIP TUESDAY AND TUESDAY) Primary Care Provider: Jim Panchal Referrals: Jim Panchal MD [Primary Care Provider] - Disposition Disposition: Home, Self Care Discharge Date/Time: 04/11/22 15:22
== END 2022-04-11 15:22 | disposition home or self-care (01) ==
PROVIDERS: Emergency Provider Emergency Medicine; PCP Family Medicine; Visit Provider Emergency Medicine
DX: M54.50 Low back pain, unspecified (principal); G89.29 Other chronic pain; F17.210 Nicotine dependence, cigarettes, uncomplicated
CPT/HCPCS: 96372; 99283

== ENCOUNTER 2022-04-14 22:10 | Emergency (ER) | payer MEDICARE, MEDICAID, SELFPAY ==
[2022-04-14 22:18] VITALS: BP 153/85; PULSE 115; RESP 26; TEMP 36.8; O2SAT 98; BMI 26.1
--- NOTE | 2022-04-14 22:22 | EDS_ITS ---
HPI History of Present Illness Chief Complaint: Unresponsive Narrative Narrative: History and physical is limited secondary to patient condition. Per EMS, patient is unresponsive she was last known well at 930 this morning. Her mother found her this evening in a stupor. She does have past medical history of alcohol abuse and prescription pain medication abuse. She has vomited in route to the hospital. She has not been given Narcan as she will be intermittently responsive. Per EMS, she will sit up and resist, then lay back on the cot. However, her son states that she has been sober for 17 years. He does admit that she takes gabapentin like candy and he has seen her in the past where she has severe mental status changes and they usually allow her to sleep it off and this is the first time that that called EMS to present her to the emergency department. [facility] Medical History Arthritis Back pain Fibromyalgia Graves' disease Luis Enrique's disease Hepatitis History of pain when walking History of steroid therapy Hx of ovarian cyst Smoker Spine fracture Thyroid disease Wears dentures Wears glasses Home Medications baclofen 20 mg tablet 20 mg PO TID 01/06/15 [History Last Taken Unknown] albuterol sulfate 90 mcg/actuation aerosol inhaler 1 puff inhalation PRN PRN Shortness Of Breath Or Wheezing 07/23/21 [History Last Taken Unknown] cholecalciferol (vitamin D3) 25 mcg (1,000 unit) capsule (Vitamin D3) 50 mcg PO DAILY 07/23/21 [History Last Taken Unknown] duloxetine 30 mg capsule,delayed release 30 mg PO DAILY 07/23/21 [History Last Taken Unknown] duloxetine 60 mg capsule,delayed release 60 mg PO DAILY 07/23/21 [History Last Taken Unknown] gabapentin 800 mg tablet 800 mg PO TIDCM 07/23/21 [History Last Taken Unknown] umeclidinium 62.5 mcg-vilanterol 25 mcg/actuation powdr for inhalation (Anoro Ellipta) 1 inh inhalation DAILY 07/23/21 [History Last Taken Unknown] oxycodone-acetaminophen 5 mg-325 mg tablet (Percocet) 1 tab PO Q6H PRN pain 3 days #12 tabs 08/29/21 [Rx Last Taken Unknown] amitriptyline 25 mg tablet 25 - 50 mg PO QHS 02/10/22 [History Last Taken Unknown] methimazole 5 mg tablet 5 mg PO MOTUTHFRSA 02/10/22 [History Last Taken Unknown] valacyclovir 1 gram tablet 1,000 mg PO DAILY 02/10/22 [History Last Taken Unknown] Allergy/AdvReac Type Severity Reaction Status Date / Time levetiracetam [From Keppra] Allergy PANICK Verified 04/14/22 22:11 ATTACKS Penicillins [PCN] Allergy Hives Verified 04/14/22 22:11 pregabalin [From Lyrica] Allergy Other Verified 04/14/22 22:11 zolpidem tartrate Allergy Other Verified 04/14/22 22:11 [From Ambien] Surgical History History of surgery Hx laparoscopic cholecystectomy Hx of tubal ligation Social History Smoking Status: Current every day smoker tobacco type: cigarettes ROS ROS ED ROS Narrative Unable to obtain review of systems from patient secondary to current mental status, suspected intoxication. Review of Systems ROS Unobtainable: due to mental status EXAM Physical Exam Narrative Exam Narrative: Afebrile. Vital signs noted. HEENT: Normocephalic. Mild bruising with small hematoma noted to left forehead. This is now spread to periorbital on the left. PERRL, EOMI. Neck soft and supple. No point tenderness or step off. Cardiovascular: Positive tachycardia no murmurs, rubs, or gallops appreciated. Respiratory: No tachypnea. Lungs clear to auscultation bilaterally. Gastrointestinal: Abdomen soft, nontender, with normoactive bowel sounds. No rebound or guarding. Neurological: Intermittently awake intoxicated nonfocal, nonlateralizing, moving all extremities. Skin: No rash. Normal color. No pallor. Musculoskeletal: No pedal edema. Full range of motion extremities. Const Vital Signs: 04/14/22 22:18 04/15/22 00:15 04/15/22 00:24 Temperature 98.2 F Temperature Source Temporal Pulse Rate 115 H 104 H Respiratory Rate 26 H 26 H Respiratory Effort Normal Respiratory Pattern Normal Blood Pressure 153/85 H 143/83 H Blood Pressure Mean 107 103 Pulse Ox 98 99 Oxygen Delivery Method Room Air Room Air MDM MDM MDM Narrative Medical decision making narrative: Upon arrival, she is intermittently responsive. I do not feel that she has a GCS less than 8, and she is currently protecting her airway. Her pulse ox is 98% on room air. Should her mental status decline, rapid sequence intubation will be considered. Comprehensive work-up was pursued including alcohol level, and given the few bruises on her forehead, CT of the brain was obtained. This is along with CT of the cervical spine. I reviewed her laboratory work, and she has elevated white count of 23.6 with hemoglobin normal at 13.5, hematocrit 40.3. Normal platelet count of 378. Electrolyte panel shows hyponatremia of 148 with chloride 110, normal potassium of 3.6. I am unsure if the cause of her mental status change could be from hyponatremia and dehydration, but she has a normal BUN of 13 and a creatinine of 0.77. Glucose is appropriately elevated at 126 with a normal anion gap of 9. Lipase normal at 73. Ammonia level normal at 19. Urinalysis was reviewed and there is no evidence of infection with 0-5 WBCs. I do not feel that antibiotics are indicated. Ethyl alcohol is negative at 7. Urine for drugs of abuse is currently pending. CT of the brain was obtained and I reviewed the radiology report which shows a linear hyperdensity in the right temporoparietal region suggesting subarachnoid hemorrhage. No evidence of calvarial fracture. I also reviewed the report of the cervical spine which shows no acute fracture. Given that report of the CT of the brain does show subarachnoid hemorrhage, and given her mental status change, I do feel that she needs a higher level of care. Her son requested she be transferred to [facility]. I discussed the patient with the transfer line initially, then with mobile intensive care. I then discussed the patient with Dr. Olguin with emergency medicine who is excepted her in transfer as a trauma given her most likely recent fall and subarachnoid hemorrhage. I do feel that while she does not need air transportation, that mobile intensive care would be of benefit to get her to the level 1 trauma center as soon as possible. Disposition is transferred in guarded condition. Lab Data Attestation: I reviewed the patient's lab results. Labs: Laboratory Results - last 24 hr 04/14/22 04/14/22 04/14/22 22:42 22:42 22:42 WBC 23.6 H RBC 3.95 L Hgb 13.5 Hct 40.3 MCV 102.0 H MCH 34.2 H MCHC 33.5 RDW Std Deviation 48.1 H RDW Coeff of Jaspal 12.7 Plt Count 378 MPV 8.5 Immature Gran % (Auto) 2.100 H Neut % (Auto) 80.8 H Lymph % (Auto) 9.1 L Cameron % (Auto) 7.8 Eos % (Auto) 0.0 Baso % (Auto) 0.2 Absolute Neuts (auto) 19.1 H Absolute Lymphs (auto) 2.15 Nucleated RBC % 0 Differential Comment SCANNED Diff Path Review May foll Anisocytosis 1+ Macrocytosis 1+ PT INR APTT Sodium 148 H Potassium 3.6 Chloride 110 H Carbon Dioxide 29.0 Anion Gap 9 BUN 13 Creatinine 0.77 Estim Creat Clear Calc 72.96 Est GFR (MDRD) Af Amer 101 Est GFR (MDRD) Non-Af 83 BUN/Creatinine Ratio 16.9 Glucose 126 H Calcium 9.0 Total Bilirubin 0.30 AST 28 ALT 16 Alkaline Phosphatase 77 Ammonia Total Protein 7.0 Albumin 3.9 Globulin 3.1 Albumin/Globulin Ratio 1.3 Lipase 73 Urine Color Urine Clarity Urine pH Ur Specific [place] Urine Protein Urine Glucose (UA) Urine Ketones Urine Occult Blood Urine Nitrite Urine Bilirubin Urine Urobilinogen Ur Leukocyte Esterase Urine RBC Urine WBC Ur Squamous Epith Cells Urine Bacteria Urine Mucus Urine Opiates Screen Urine Methadone Screen Ur Barbiturates Screen Ur Phencyclidine Scrn Ur Amphetamines Screen MDMA (Ecstasy) Screen U Benzodiazepines Scrn Urine Cocaine Screen U Cannabinoids Screen Ur Drug Screen Comment Ethyl Alcohol 7.0 04/14/22 04/14/22 04/14/22 22:42 23:42 23:59 WBC RBC Hgb Hct MCV MCH MCHC RDW Std Deviation RDW Coeff of Jaspal Plt Count MPV Immature Gran % (Auto) Neut % (Auto) Lymph % (Auto) Cameron % (Auto) Eos % (Auto) Baso % (Auto) Absolute Neuts (auto) Absolute Lymphs (auto) Nucleated RBC % Differential Comment Diff Path Review Anisocytosis Macrocytosis PT 13.5 INR 1.1 APTT 27.9 Sodium Potassium Chloride Carbon Dioxide Anion Gap BUN Creatinine Estim Creat Clear Calc Est GFR (MDRD) Af Amer Est GFR (MDRD) Non-Af BUN/Creatinine Ratio Glucose Calcium Total Bilirubin AST ALT Alkaline Phosphatase Ammonia 19.0 Total Protein Albumin Globulin Albumin/Globulin Ratio Lipase Urine Color Yellow Urine Clarity Clear Urine pH 7.0 Ur Specific [place] 1.010 Urine Protein Negative Urine Glucose (UA) Normal Urine Ketones Negative Urine Occult Blood 25 H Urine Nitrite Negative Urine Bilirubin Negative Urine Urobilinogen Normal Ur Leukocyte Esterase Negative Urine RBC 0-5 SEEN Urine WBC 0 SEEN Ur Squamous Epith Cells 0 SEEN Urine Bacteria 0 SEEN Urine Mucus 0 SEEN Urine Opiates Screen Urine Methadone Screen Ur Barbiturates Screen Ur Phencyclidine Scrn Ur Amphetamines Screen MDMA (Ecstasy) Screen U Benzodiazepines Scrn Urine Cocaine Screen U Cannabinoids Screen Ur Drug Screen Comment Ethyl Alcohol 04/14/22 23:59 WBC RBC Hgb Hct MCV MCH MCHC RDW Std Deviation RDW Coeff of Jaspal Plt Count MPV Immature Gran % (Auto) Neut % (Auto) Lymph % (Auto) Cameron % (Auto) Eos % (Auto) Baso % (Auto) Absolute Neuts (auto) Absolute Lymphs (auto) Nucleated RBC % Differential Comment Diff Path Review Anisocytosis Macrocytosis PT INR APTT Sodium Potassium Chloride Carbon Dioxide Anion Gap BUN Creatinine Estim Creat Clear Calc Est GFR (MDRD) Af Amer Est GFR (MDRD) Non-Af BUN/Creatinine Ratio Glucose Calcium Total Bilirubin AST ALT Alkaline Phosphatase Ammonia Total Protein Albumin Globulin Albumin/Globulin Ratio Lipase Urine Color Urine Clarity Urine pH Ur Specific [place] Urine Protein Urine Glucose (UA) Urine Ketones Urine Occult Blood Urine Nitrite Urine Bilirubin Urine Urobilinogen Ur Leukocyte Esterase Urine RBC Urine WBC Ur Squamous Epith Cells Urine Bacteria Urine Mucus Urine Opiates Screen NEGATIVE Urine Methadone Screen NEGATIVE Ur Barbiturates Screen NEGATIVE Ur Phencyclidine Scrn NEGATIVE Ur Amphetamines Screen NEGATIVE MDMA (Ecstasy) Screen NEGATIVE U Benzodiazepines Scrn NEGATIVE Urine Cocaine Screen NEGATIVE U Cannabinoids Screen POSITIVE H Ur Drug Screen Comment Ethyl Alcohol Radiography Diagnostic Testing: Clinical Impression(s) from Imaging Studies Brain CT 04/14/22 22:25 IMPRESSION: Linear hyperdensity in the right parietotemporal region, suggestive of trace subarachnoid hemorrhage. No depressed calvarial fracture. Electronically Signed: Lamine Robb MD at 0:00 EST , Cervical Spine CT 04/14/22 22:53 IMPRESSION: No acute fracture or subluxation. Electronically Signed: Lamine Robb MD at 0:11 EST , Critical Care Time Critical Care Time: Yes Critical care time (excluding procedures): 30-74 minutes (32), Including time spent:, Discussing w/Patient &/or Family/Rn Plasma [facility], Discussing w/Consultants, Arranging Admission or Transfer and Performing Direct Patient Care at Bedside Discharge Plan Triage Chief Complaint: Unresponsive Other Complaint: ETOH Intox ED Provider: Stephane Becker Dx/Rx/DC Orders Clinical Impression: Altered mental status, Subarachnoid hemorrhage, Hypernatremia, Contusion of face Prescriptions: No Action baclofen 20 MG tablet 20 mg PO TID Label Comments: FIBROMYALGIA gabapentin 800 mg tablet 800 mg PO TIDCM Label Comments: take 1 tablet by mouth three times a day albuterol sulfate 90 mcg/actuation HFA aerosol inhaler 1 puff INHALATION PRN PRN (Reason: Shortness Of Breath Or Wheezing) Label Comments: inhale 2 puffs by mouth four times a day if needed for wheezing or cough cholecalciferol (vitamin D3) [Vitamin D3] 25 mcg (1,000 unit) Capsule 50 mcg PO DAILY duloxetine 30 mg capsule,delayed release(DR/EC) 30 mg PO DAILY Label Comments: take 1 capsule by mouth once daily duloxetine 60 mg capsule,delayed release(DR/EC) 60 mg PO DAILY Label Comments: take 1 capsule by mouth once daily Anoro Ellipta 62.5-25 mcg/actuation blister with device 1 inh INHALATION DAILY Label Comments: inhale 1 puff by mouth and INTO THE LUNGS once daily oxycodone-acetaminophen [Percocet] 5-325 mg tablet 1 tab PO Q6H PRN (Reason: pain) 3 Days Qty: 12 0RF valacyclovir 1 gram tablet 1,000 mg PO DAILY Label Comments: TAKE 1 TABLET BY MOUTH TWICE DAILY FOR 7 DAYS amitriptyline 25 mg tablet 25 - 50 mg PO QHS Label Comments: TAKE 1-2 TABLETS BY MOUTH AT BEDTIME methimazole 5 mg tablet 5 mg PO MOTUTHFRSA Label Comments: TAKE 1 TABLET BY MOUTH ONCE DAILY (SKIP TUESDAY AND TUESDAY) Primary Care Provider: Jim Panchal Referrals: Jim Panchal MD [Primary Care Provider] - Disposition Disposition: Acute Care Hospital Discharge Location: [facility]
--- NOTE | 2022-04-14 22:25 | CT_ITS ---
EXAM: CT brain without contrast HISTORY: Mental status change TECHNIQUE: CT Head or Brain W/O Contrast Injection A radiation dose optimization technique was used for this scan. COMPARISON: CT brain 01/19/2015 LIMITATIONS: None. BRAIN: Linear hyperdensity in the right parietotemporal region. VENTRICLES: No hydrocephalus. EXTRA-AXIAL SPACES: No hemorrhages, fluid collections, or masses. CALVARIUM/SKULL BASE: Normal. FACE/SINUSES: Visualized portions normal. SOFT TISSUES: Left forehead soft tissue swelling. OTHER: None. CT/Brain/Head without Contrast IMPRESSION: Linear hyperdensity in the right parietotemporal region, suggestive of trace subarachnoid hemorrhage. No depressed calvarial fracture. Electronically Signed: Lamine Robb MD at 0:00 EST ,
--- NOTE | 2022-04-14 22:30 | ED.RN ---
UNABLE TO COMPLETE CIWA AT THIS TIME DUE TO PT NEURO STATUS.
--- NOTE | 2022-04-14 22:53 | CT_ITS ---
INDICATION: Head trauma EXAMINATION: CT CERVICAL SPINE - CT Spine Cervical W/O Contrast Injection TECHNIQUE: Helically acquired images were obtained of the cervical spine. 2D reformatted images were reviewed. A radiation dose optimization technique was used for this scan. COMPARISON: CT neck 12/12/2019 FINDINGS: ALIGNMENT: Normal. VERTEBRAL BODIES: No fracture or acute abnormality. DISC SPACES: Normal. POSTERIOR ELEMENTS: Normal. SPINAL CANAL: Normal. PARASPINAL SOFT TISSUES: Normal. LUNG APICES: Visualized portions normal. OTHER: None. CT/Spine Cervical without Contras IMPRESSION: No acute fracture or subluxation. Electronically Signed: Lamine Robb MD at 0:11 EST ,
[2022-04-14 23:17] LABS: ALB/GLOB Ratio 1.3 RATIO (0.9-2.4); AST(SGOT) 28 U/L (15-37); Alanine Aminotransfer ALT/SGPT 16 U/L (13-56); Albumin, Serum 3.9 g/dL (3.2-5.0); Alkaline Phosphatase 77 U/L (45-117); Anion Gap 9 (5-15); BUN 13 mg/dL (7-18); BUN/Creat Ratio 16.9 RATIO (10-20); Chloride 110 mmol/L (98-107); Creatinine, Serum 0.77 mg/dL (0.55-1.02); EST Glomerular Filtration Rate 83 mL/min (>60); Est Glom Filt Rate - Afr Amer 101 mL/min (>60); Estimated Creatinine Clearance 72.96 ml/min; Globulin 3.1 g/dL (2.2-4.2); Glucose 126 mg/dL (74-106); Lipase 73 U/L (73-393); Potassium 3.6 mmol/L (3.5-5.1); Sodium Level 148 mmol/L (136-145)
[2022-04-14 23:26] LABS: Absolute Lymphocyte Count 2.15 X10^3/uL (0.83-4.51); Absolute Neutrophil Count 19.1 X10^3/uL (2.0-7.7); Basophil# 0.05 X10^3/uL; Basophil% 0.2 % (0-1); Hematocrit 40.3 % (37-47); Hemoglobin 13.5 g/dL (12.0-15.0); Lymphocyte # 2.15 X10^3/ul (0.83-4.51); Lymphocyte % 9.1 % (19-41); Mean Corp Hgb Conc 33.5 g/dL (32-36); Mean Corpuscular Hgb 34.2 pg (27.0-32.0); Mean Platelet Vol. 8.5 fl (6.2-12.0); Monocyte# 1.85 X10^3/uL; Monocyte% 7.8 % (0-10); NRBC Flagged by Analyzer 0 % (0-5); Neutrophil % 80.8 % (47-70); POSITIVE DIFFERENTIAL YES; Platelet Count 378 K/mm3 (150-450); RBC Distribution Width CV 12.7 % (11.6-14.6); RBC Distribution Width SD 48.1 fl (35.1-43.9); Red Blood Count 3.95 M/mm3 (4.2-5.4); White Blood Count 23.6 K/mm3 (4.4-11.0)
[2022-04-14 23:28] LABS: Differential Indicated SCAN CRITERIA MET
[2022-04-15 00:03] LABS: Bacteria 0 SEEN /hpf (None Seen); Mucous, Urine 0 SEEN /hpf (<or=2+); Squamous Epithelial Cells - UA 0 SEEN /hpf (5-10); White Blood Cells 0 SEEN /hpf (0-5)
[2022-04-15 00:09] LABS: Anisocytosis 1+; Differential Comment SCANNED; Macrocytosis 1+
[2022-04-15 00:15] VITALS: BP 143/83; PULSE 104; RESP 26; O2SAT 99
[2022-04-15 00:16] LABS: Color, Urine Yellow (Yellow); Glucose, Dipstick Normal (Normal); Ketone-Dipstick Negative (Negative); Leukocyte Esterase-Dipstick Negative /ul (Negative); Nitrite-Dipstick Negative (Negative); Occult Blood-Urine 25 /ul (Negative); Protein-Dipstick Negative (Negative); Urine Bilirubin Dipstick Negative (Negative); Urine Clarity Clear (Clear); Urine Urobilinogen Normal (Normal)
[2022-04-15 00:25] LABS: Red Blood Cells-Urine 0-5 SEEN /hpf (0-5)
[2022-04-15 00:29] LABS: International Normalized Ratio 1.1; Prothrombin Time (Protime)PT. 13.5 SECONDS (11.7-14.9)
[2022-04-15 00:30] LABS: Partial Thromboplast Time 27.9 Seconds (24.1-36.2)
--- NOTE | 2022-04-15 00:41 | ED.RN ---
PT HAD PAIN PATCH ON BACK, REMOVED BY CHARGE NURSE CELIA RN AND VERIFIED BY THIS RN. PATCH WASTED APPROPRIATELY.
[2022-04-15 00:44] LABS: Amphetamine Urine VISTA NEGATIVE (<1000 ng/mL); Barbiturate Urine VISTA NEGATIVE (< 200 ng/mL); Benzodiazepine Urine VISTA NEGATIVE (< 200 ng/mL); Cocaine Urine VISTA NEGATIVE (< 300 ng/mL); Ecstacy Urine VISTA NEGATIVE (< 500 ng/mL); Methadone Urine VISTA NEGATIVE (< 300 ng/mL); PCP Urine VISTA NEGATIVE (< 25 ng/mL); THC Urine VISTA POSITIVE (< 50 ng/mL); Vista UDS pH Range 7
[2022-04-15] MEDS: Ondansetron 4 MG/2 ML Vial IV (00:59)
--- NOTE | 2022-04-15 01:04 | ED.RN ---
mother called and updated on transfer
--- NOTE | 2022-04-15 01:04 | ED.RN ---
patient restless and keeps ripping off limbs leads and blood pressure
[2022-04-15 01:05] VITALS: BP 135/74; PULSE 104; RESP 14; O2SAT 96
[2022-04-15 01:31] VITALS: BP 121/69; PULSE 79; RESP 13; O2SAT 98
--- NOTE | 2022-04-15 01:47 | ED.RN ---
[facility] transport taking over care for patient at this time
[2022-04-15 02:00] VITALS: BP 135/74; PULSE 104; RESP 14; TEMP 37.1; O2SAT 96
--- NOTE | 2022-04-15 02:13 | CPS ---
RT at bedside multiple times. An EKG was attempted but due to movement and agitation of the patient an EKG was never able to be obtained. field test engineer aware.
[2022-04-16 09:40] LABS: Pathologist Review Reviewed
== END 2022-04-15 01:55 | disposition short-term general hospital (02) ==
PROVIDERS: Emergency Provider Emergency Medicine; PCP Family Medicine; Visit Provider Emergency Medicine
DX: R41.82 Altered mental status, unspecified (principal); S06.6X0A Traumatic subarachnoid hemorrhage without loss of consciousness, initial encounter; E87.0 Hyperosmolality and hypernatremia; S00.83XA Contusion of other part of head, initial encounter; F17.210 Nicotine dependence, cigarettes, uncomplicated; W19.XXXA Unspecified fall, initial encounter
CPT/HCPCS: 70450; 72125; 80053; 80307; 81001; 82077; 82140; 83690; 85025; 85610; 85730; 87811; 96374; 99285; P9612; A4216; J2405

== ENCOUNTER 2022-05-15 18:07 | Emergency (ER) | payer MEDICARE, MEDICAID, SELFPAY ==
[2022-05-15 18:09] VITALS: BP 104/53; PULSE 110; RESP 24; TEMP 36.3; O2SAT 97; BMI 22.8
[2022-05-15 18:24] VITALS: BP 104/53; PULSE 110; RESP 24; TEMP 36.3; O2SAT 97
--- NOTE | 2022-05-15 18:32 | EX.ED.DYSGE1 ---
HPI History of Present Illness Chief Complaint: Shortness of Breath Narrative Narrative: 51-year-old female presents with her mother because of multiple complaints. They relate history that she had a brain injury and was in a coma for a week. This was around , approximately 1 month ago. She was transferred to an outside facility, where she required trach and PEG. She was released from the hospital. She states that they changed the tracheostomy to a smaller one, and in 2 weeks from now she is supposed to have her tracheostomy reversed. She feels as if her trach has dislodged and is protruding more than usual. She states this happened while she was hospitalized and the doctor/surgeon shoved it back in. Additionally, over the last 3 to 4 days, she noticed redness to her bilateral lower extremities, and swelling of her feet. Her feet are painful. She denies any fevers or chills. No nausea or vomiting. She feels short of breath because her trach is dislodged, and additionally she states that she was to receive albuterol aerosolized treatments and was written for the liquid, but when she took her prescription to the pharmacy, and states that she did not qualify for the nebulizer machine so she has not been using any breathing treatments over the last few days to week. She presents because of the redness to her bilateral lower extremities. She denies any chest pain, or other symptoms. [facility] Medical History Arthritis Back pain Fibromyalgia Graves' disease Luis Enrique's disease Hepatitis History of pain when walking History of steroid therapy Hx of ovarian cyst Smoker Spine fracture Thyroid disease Wears dentures Wears glasses Home Medications baclofen 20 mg tablet 20 mg PO TID 01/06/15 [History Last Taken Unknown] cholecalciferol (vitamin D3) 25 mcg (1,000 unit) capsule (Vitamin D3) 50 mcg PO DAILY 07/23/21 [History Last Taken Unknown] duloxetine 30 mg capsule,delayed release 30 mg PO DAILY 07/23/21 [History Last Taken Unknown] duloxetine 60 mg capsule,delayed release 60 mg PO DAILY 07/23/21 [History Last Taken Unknown] gabapentin 800 mg tablet 800 mg PO TIDCM 07/23/21 [History Last Taken Unknown] oxycodone-acetaminophen 5 mg-325 mg tablet (Percocet) 1 tab PO Q6H PRN pain 3 days #12 tabs 08/29/21 [Rx Last Taken Unknown] amitriptyline 25 mg tablet 25 - 50 mg PO QHS 02/10/22 [History Last Taken Unknown] methimazole 5 mg tablet 5 mg PO MOTUTHFRSA 02/10/22 [History Last Taken Unknown] ascorbic acid (vitamin C) 500 mg 1XD 05/15/22 [History Last Taken Unknown] buprenorphine 5 mcg/hour weekly transdermal patch 5 mcg transdermal QWEEK 05/15/22 [History Last Taken Unknown] guaifenesin 100 mg Q6H PRN PRN Cough 05/15/22 [History Last Taken Unknown] Allergy/AdvReac Type Severity Reaction Status Date / Time levetiracetam [From Keppra] Allergy PANICK Verified 05/15/22 18:14 ATTACKS Penicillins [PCN] Allergy Hives Verified 05/15/22 18:14 pregabalin [From Lyrica] Allergy Other Verified 05/15/22 18:14 zolpidem tartrate Allergy Other Verified 05/15/22 18:14 [From Ambien] Surgical History History of surgery Hx laparoscopic cholecystectomy Hx of tubal ligation Social History Smoking Status: Current every day smoker tobacco type: cigarettes ROS ROS ED ROS Narrative Constitutional: No fever, no chills. HEENT: No sore throat. No neck pain. No loss of vision. No rhinorrhea. Tracheostomy, feels trach is dislodged. Cardiovascular: No chest pain. No palpitations. Bilateral pedal edema. Respiratory: No cough, positive shortness of breath. Abdominal: No abdominal pain. No nausea. No vomiting. Genitourinary: No dysuria. No hematuria. Musculoskeletal: No myalgias. No arthralgias. Neurologic: No headaches. No dizziness. No lightheadedness. Skin: No rash. Bilateral lower extremity redness. Psychiatric: No depression. No anxiety. EXAM Physical Exam Narrative Exam Narrative: Afebrile. Vital signs noted. HEENT: Normocephalic. Atraumatic. PERRL, EOMI. Neck soft and supple. No point tenderness or step off. Cardiovascular: Regular rate and rhythm. No murmurs, rubs, or gallops appreciated. Respiratory: No tachypnea. Lungs clear to auscultation bilaterally. Gastrointestinal: Abdomen soft, nontender, with normoactive bowel sounds. No rebound or guarding. Neurological: Awake. Alert. Nonfocal, nonlateralizing. Skin: No rash. Positive erythema bilateral lower extremities, anterior tibial areas. No pallor. Musculoskeletal: Trace pedal edema. Full range of motion extremities. Const Vital Signs: 05/15/22 18:09 05/15/22 18:24 05/15/22 18:24 Temperature 97.3 F L 97.3 F L Temperature Source Temporal Temporal Pulse Rate 110 H 110 H Respiratory Rate 24 H 24 H Respiratory Effort Non-Labored Respiratory Pattern Tachypnea Blood Pressure 104/53 L 104/53 L Blood Pressure Mean 70 70 Pulse Ox 97 97 Oxygen Delivery Method Room Air Room Air 05/15/22 19:01 05/15/22 19:47 Temperature Temperature Source Pulse Rate 96 98 Respiratory Rate 18 18 Respiratory Effort Respiratory Pattern Normal Blood Pressure 130/49 H Blood Pressure Mean 76 Pulse Ox 94 Oxygen Delivery Method Room Air MDM MDM MDM Narrative Medical decision making narrative: Reviewed her prior records. Additionally, I did review a nutritional chemist report/prognosis note from the [facility] animal care specialist center, Dr. Moran, from today which states that she was there for evaluation for tracheostomy removal. She was told that there is concern for persistent vocal cord edema or inflammation so she is to return in 2 weeks and maybe have her trach removed at that time along with her PEG removal because she has not using it. She was given a prescription for Levaquin it states for clinical evidence of tracheitis and possible pneumonia. Hence, she will already be treated for any cellulitis of her bilateral lower extremities. Her pulse ox is 97% on room air. I will obtain a chest x-ray to see if she has a pneumonia. Additionally, I will obtain laboratory work because she is tachycardic and borderline hypotensive at 104/53 with mild tachypnea. However, I do see that she was seen as an outpatient today. Her trach and PEG had been performed on 04/27 after multiple attempts at extubation. I do not feel that her trach should be removed although she feels that it is dislodged. Her mother is very concerned with the redness of her legs. Unfortunately, ultrasound is unavailable at this time. As she is already taking Levaquin, I do feel that this would treat any cellulitis. I will ensure that she has filled the prescription that was written for her by her surgeon. I reviewed her chest x-ray and see no evidence of an acute pneumonia. Additionally, she saw her physician on Tuesday, and has been on Levaquin. I do feel that this would take care of any cellulitis additionally. I reviewed her laboratory work and she has a normal white count of 5.9, hemoglobin stable at 9.6, hematocrit 30.5. Platelet count normal at 296. In review of her BMP, she has a hypokalemia of 3.2 which was replaced orally with 40 mill equivalents of potassium chloride liquid. BUN is normal at 7 with creatinine 0.67. Lactic acid is normal at 0.8. At this point in time, I feel she can be discharged safely home with follow-up to her primary care provider to recheck her potassium in the next few days. Additionally, she will finish the Levaquin and have outpatient ultrasound of her bilateral lower extremities performed because of the redness, pain, and swelling. Her pulse ox ranges from 95 to 97% on room air. I feel she can be discharged safely home with follow-up. Return instructions to the emergency department were reviewed. Disposition is discharged home in stable condition. History & Record Review Discussion w/independent historian: Patient and Family Additional record(s) reviewed:: Prior ED visit Lab Data Attestation: I reviewed the patient's lab results. Labs: Laboratory Results - last 24 hr 05/15/22 05/15/22 05/15/22 18:52 18:52 18:52 WBC 5.9 RBC 2.99 L Hgb 9.6 L Hct 30.5 L MCV 102.0 H MCH 32.1 H MCHC 31.5 L RDW Std Deviation 49.1 H RDW Coeff of Jaspal 13.1 Plt Count 296 MPV 8.9 Immature Gran % (Auto) 0.200 Neut % (Auto) 52.0 Lymph % (Auto) 32.8 Towner % (Auto) 11.4 H Eos % (Auto) 2.9 Baso % (Auto) 0.7 Absolute Neuts (auto) 3.1 Absolute Lymphs (auto) 1.93 Nucleated RBC % 0 Sodium 143 Potassium 3.2 L Chloride 105 Carbon Dioxide 30.0 Anion Gap 8 BUN 7 Creatinine 0.67 Estim Creat Clear Calc 80.33 Est GFR (MDRD) Af Amer 118 Est GFR (MDRD) Non-Af 97 BUN/Creatinine Ratio 10.4 Glucose 120 H Lactic Acid 0.8 Calcium 8.6 Radiography Chest X-Ray - ED: Read by ED Physician Diagnostic Testing: Clinical Impression(s) from Imaging Studies Chest X-Ray 05/15/22 19:05 IMPRESSION: No acute findings in the chest. Electronically Signed: Marcin Greco MD at 19:20 EDT , Discharge Plan Triage Chief Complaint: Shortness of Breath Other Complaint: Edema ED Provider: Stephane Becker Dx/Rx/DC Orders Clinical Impression: Hypokalemia, Shortness of breath, Redness and swelling of lower leg Instructions: ED Dyspnea, ED Peripheral Edema, Bilateral, ED Hypokalemia Prescriptions: No Action baclofen 20 MG tablet 20 mg PO TID Label Comments: FIBROMYALGIA gabapentin 800 mg tablet 800 mg PO TIDCM Label Comments: take 1 tablet by mouth three times a day cholecalciferol (vitamin D3) [Vitamin D3] 25 mcg (1,000 unit) Capsule 50 mcg PO DAILY duloxetine 30 mg capsule,delayed release(DR/EC) 30 mg PO DAILY Label Comments: take 1 capsule by mouth once daily duloxetine 60 mg capsule,delayed release(DR/EC) 60 mg PO DAILY Label Comments: take 1 capsule by mouth once daily oxycodone-acetaminophen [Percocet] 5-325 mg tablet 1 tab PO Q6H PRN (Reason: pain) 3 Days Qty: 12 0RF amitriptyline 25 mg tablet 25 - 50 mg PO QHS Label Comments: TAKE 1-2 TABLETS BY MOUTH AT BEDTIME methimazole 5 mg tablet 5 mg PO MOTUTHFRSA Label Comments: TAKE 1 TABLET BY MOUTH ONCE DAILY (SKIP TUESDAY AND TUESDAY) buprenorphine 5 mcg/hour patch weekly 5 mcg transdermal QWEEK ascorbic acid (vitamin C) 500 mg 1XD guaifenesin 100 mg Q6H PRN PRN (Reason: Cough) Other Ambulatory Orders: Venous Duplex US - Junior Extrem (Stat) Facility: [facility] - Location: [facility] Ordered By: Stephane Becker Primary Care Provider: Jim Panchal Referrals: Jim Panchal MD [Primary Care Provider] - 3-5 Days if not improving Activity Restrictions/Additional Instructions: Continue your antibiotics as previously directed. Have your ultrasound performed of your bilateral lower extremities as an outpatient. Disposition Disposition: Home, Self Care
[2022-05-15] MEDS: Albuterol 2.5 MG/3 ML VIAL.NEB. INHALATION (18:56)
[2022-05-15 19:01] VITALS: PULSE 96; RESP 18
[2022-05-15 19:01] LABS: Absolute Lymphocyte Count 1.93 X10^3/uL (0.83-4.51); Absolute Neutrophil Count 3.1 X10^3/uL (2.0-7.7); Basophil# 0.04 X10^3/uL; Basophil% 0.7 % (0-1); Eosinophil# 0.17 X10^3/uL; Eosinophils% 2.9 % (0-5); Hematocrit 30.5 % (37-47); Hemoglobin 9.6 g/dL (12.0-15.0); Lymphocyte # 1.93 X10^3/ul (0.83-4.51); Lymphocyte % 32.8 % (19-41); Mean Corp Hgb Conc 31.5 g/dL (32-36); Mean Corpuscular Hgb 32.1 pg (27.0-32.0); Mean Platelet Vol. 8.9 fl (6.2-12.0); Monocyte# 0.67 X10^3/uL; Monocyte% 11.4 % (0-10); NRBC Flagged by Analyzer 0 % (0-5); Neutrophil # 3.07 X10^3/uL (2.7-7.7); Platelet Count 296 K/mm3 (150-450); RBC Distribution Width CV 13.1 % (11.6-14.6); RBC Distribution Width SD 49.1 fl (35.1-43.9); Red Blood Count 2.99 M/mm3 (4.2-5.4); White Blood Count 5.9 K/mm3 (4.4-11.0)
--- NOTE | 2022-05-15 19:05 | RAD_ITS ---
EXAM: XR CHEST, 1 VIEW CLINICAL INDICATION: shortness of breath TECHNIQUE: Frontal view of the chest. This report was created using [employer] report generation technology. COMPARISON: None. FINDINGS: LUNGS AND PLEURAL SPACES: Unremarkable. No consolidation or edema. No pneumothorax. No effusion. HEART: Unremarkable. Cardiac silhouette not enlarged. MEDIASTINUM: Central airways and mediastinal contour are unremarkable. BONES/JOINTS: Unremarkable. SOFT TISSUES: Unremarkable. TUBES, LINES AND DEVICES: Tracheostomy tube noted. Metallic leads in the spinal canal may suggest spinal stimulator leads. RAD/Chest 1 View (Portable) IMPRESSION: No acute findings in the chest. Electronically Signed: Marcin Greco MD at 19:20 EDT ,
[2022-05-15 19:14] LABS: Anion Gap 8 (5-15); BUN 7 mg/dL (7-18); BUN/Creat Ratio 10.4 RATIO (10-20); Calcium,Total 8.6 mg/dL (8.5-10.1); Chloride 105 mmol/L (98-107); Creatinine, Serum 0.67 mg/dL (0.55-1.02); EST Glomerular Filtration Rate 97 mL/min (>60); Est Glom Filt Rate - Afr Amer 118 mL/min (>60); Estimated Creatinine Clearance 80.33 ml/min; Glucose 120 mg/dL (74-106); Potassium 3.2 mmol/L (3.5-5.1); Sodium Level 143 mmol/L (136-145)
[2022-05-15] MEDS: Morphine 4 MG/ML Syringe IV (19:18)
[2022-05-15 19:20] LABS: Lactic Acid 0.8 mmol/L (0.4-1.9)
[2022-05-15 19:47] VITALS: BP 130/49; PULSE 98; RESP 18; O2SAT 94
[2022-05-15] MEDS: Potassium Chloride Oral Soln 20 MEQ/15 ML UDC 40 MEQ PO (19:53)
== END 2022-05-15 20:14 | disposition home or self-care (01) ==
PROVIDERS: Emergency Provider Emergency Medicine; PCP Family Medicine; Visit Provider Emergency Medicine
DX: E87.6 Hypokalemia (principal); R06.02 Shortness of breath; M79.89 Other specified soft tissue disorders; F17.210 Nicotine dependence, cigarettes, uncomplicated; Z79.899 Other long term (current) drug therapy
CPT/HCPCS: 71045; 80048; 83605; 85025; 94640; 96374; 99285; A4216

== ENCOUNTER 2022-05-16 21:22 | Emergency (ER) | payer MEDICARE, MEDICAID, SELFPAY ==
[2022-05-16 21:24] VITALS: BP 133/66; PULSE 127; RESP 41; TEMP 36.4; O2SAT 96; BMI 22.4
--- NOTE | 2022-05-16 21:29 | EX.ED.DYSGE1 ---
HPI History of Present Illness Chief Complaint: Wound Check Informant: patient Narrative Narrative: Tracheostomy dislodged. Presents with accidental dislodgment of tracheostomy tube. States it was placed maybe a couple weeks ago. She had a 3-week hospitalization in [place] when this was placed. She was on a ventilator initially. She states she had a PEG tube also however is not being used. A tracheostomy no continuous oxygen. She has a inner cannula placed during the day and taken out at night. She states she fell asleep with the inner cannula out it got caught pulling out. She came directly here. Prior similar symptoms: No PFSH PFSH Medical History Arthritis Back pain Fibromyalgia Graves' disease Luis Enrique's disease Hepatitis History of pain when walking History of steroid therapy Hx of ovarian cyst Smoker Spine fracture Thyroid disease Wears dentures Wears glasses Home Medications baclofen 20 mg tablet 20 mg PO TID 01/06/15 [History Last Taken Unknown] cholecalciferol (vitamin D3) 25 mcg (1,000 unit) capsule (Vitamin D3) 50 mcg PO DAILY 07/23/21 [History Last Taken Unknown] duloxetine 30 mg capsule,delayed release 30 mg PO DAILY 07/23/21 [History Last Taken Unknown] duloxetine 60 mg capsule,delayed release 60 mg PO DAILY 07/23/21 [History Last Taken Unknown] gabapentin 800 mg tablet 800 mg PO TIDCM 07/23/21 [History Last Taken Unknown] oxycodone-acetaminophen 5 mg-325 mg tablet (Percocet) 1 tab PO Q6H PRN pain 3 days #12 tabs 08/29/21 [Rx Last Taken Unknown] amitriptyline 25 mg tablet 25 - 50 mg PO QHS 02/10/22 [History Last Taken Unknown] methimazole 5 mg tablet 5 mg PO MOTUTHFRSA 02/10/22 [History Last Taken Unknown] albuterol sulfate 90 mcg/actuation aerosol inhaler (Ventolin HFA) 1 - 2 puff inhalation Q4H PRN PRN Wheezing #1 ea 05/15/22 [Rx Last Taken Unknown] ascorbic acid (vitamin C) 500 mg 1XD 05/15/22 [History Last Taken Unknown] buprenorphine 5 mcg/hour weekly transdermal patch 5 mcg transdermal QWEEK 05/15/22 [History Last Taken Unknown] guaifenesin 100 mg Q6H PRN PRN Cough 05/15/22 [History Last Taken Unknown] Allergy/AdvReac Type Severity Reaction Status Date / Time levetiracetam [From Keppra] Allergy PANICK Verified 05/15/22 18:14 ATTACKS Penicillins [PCN] Allergy Hives Verified 05/15/22 18:14 pregabalin [From Lyrica] Allergy Other Verified 05/15/22 18:14 zolpidem tartrate Allergy Other Verified 05/15/22 18:14 [From Ambien] Surgical History History of surgery Hx laparoscopic cholecystectomy Hx of tubal ligation Social History Smoking Status: Current every day smoker tobacco type: cigarettes ROS ROS ED Constitutional Constitutional ED: Denies chills, fever(s) or sweats Eyes Eyes: Denies change in vision ENT ENT ED: Denies dysphagia or sore throat Cardiovascular Cardiovascular: Denies chest pain, leg edema, palpitations or racing heartbeat Respiratory/Chest Respiratory/Chest: Reports dyspnea; Denies cough or dyspnea on exertion Gastrointestinal Gastrointestinal: Denies abdominal pain, diarrhea, nausea or vomiting Genitourinary Genitourinary ED: Denies dysuria, hematuria or urinary frequency Musculoskeletal Musculoskeletal: Denies back pain, extremity pain or neck pain Integumentary Denies rash or wounds Neurologic Neurologic: Denies headache(s), paresthesias or weakness EXAM Physical Exam Const Vital Signs: 05/16/22 21:24 Temperature 97.6 F L Temperature Source Temporal Pulse Rate 127 H Respiratory Rate 41 H Blood Pressure 133/66 H Blood Pressure Mean 88 Pulse Ox 96 Oxygen Delivery Method Room Air Positive well nourished and well developed General Appearance ED: well developed and NAD HEENT Reports moist mucous membranes normocephalic and atraumatic Eyes PERRL, EOMs intact bilaterally and conjunctivae normal General Eye ED: Yes normal appearance of both eyes Neck no lymphadenopathy and supple Neck Narrative: Tracheostomy site with scabbing superiorly this was dislodged out. Orifice was visualized. General: Negative for tenderness Chest Wall Chest: Negative for tenderness Resp normal respiratory effort and normal air movement Effort and Inspection: symmetric chest movement; Negative for respiratory distress Cardio regular rhythm and no murmurs Rate: tachycardic Peripheral Pulses: pulses 2+ throughout GI normal to inspection, nondistended, normoactive bowel sounds and non-tender Palpation: Negative for guarding or rebound tenderness present Back/Spine no CVA tenderness and no thoracic nor lumbar tenderness Extremity normal to inspection General Extremety ED: Negative for edema or tenderness General Extremity: Negative for edema Neuro oriented x3 and no sensory deficits noted Sensorium / Orientation: awake and alert Skin no rashes or lesions noted and no wounds MDM MDM MDM Narrative Medical decision making narrative: Interventions / MDM: Differential diagnosis: Dislodged tracheostomy Diagnosis considered but do not suspect: N/A My EKG interpretation: N/A Imaging independently reviewed and interpreted by myself: N/A External documents reviewed: N/A Test considered but not ordered:N/A ED course: Tracheostomy tube was brought in with the patient, 5-0 Shiley uncuffed. Respiratory bedside, this was cleansed bedside, replaced with respiratory team bedside. No difficulties. Re-evaluation: Resting more comfortably heart rate improved respiratory rate improved. Patient's mother went home obtained And the inner troches. This was cleansed. By respiratory therapy. She will keep her follow-up with her specialist in [place]. Disposition discussed with patient/family/significant other: Patient and mother Case discussed with consulting clinician: N/A Discharge Plan Triage Chief Complaint: Wound Check ED Provider: Jozef Ventura Dx/Rx/DC Orders Clinical Impression: Trachea displaced, Sinus tachycardia Instructions: ED Tracheostomy Care Prescriptions: No Action baclofen 20 MG tablet 20 mg PO TID Label Comments: FIBROMYALGIA gabapentin 800 mg tablet 800 mg PO TIDCM Label Comments: take 1 tablet by mouth three times a day cholecalciferol (vitamin D3) [Vitamin D3] 25 mcg (1,000 unit) Capsule 50 mcg PO DAILY duloxetine 30 mg capsule,delayed release(DR/EC) 30 mg PO DAILY Label Comments: take 1 capsule by mouth once daily duloxetine 60 mg capsule,delayed release(DR/EC) 60 mg PO DAILY Label Comments: take 1 capsule by mouth once daily oxycodone-acetaminophen [Percocet] 5-325 mg tablet 1 tab PO Q6H PRN (Reason: pain) 3 Days Qty: 12 0RF amitriptyline 25 mg tablet 25 - 50 mg PO QHS Label Comments: TAKE 1-2 TABLETS BY MOUTH AT BEDTIME methimazole 5 mg tablet 5 mg PO MOTUTHFRSA Label Comments: TAKE 1 TABLET BY MOUTH ONCE DAILY (SKIP TUESDAY AND TUESDAY) buprenorphine 5 mcg/hour patch weekly 5 mcg transdermal QWEEK ascorbic acid (vitamin C) 500 mg 1XD guaifenesin 100 mg Q6H PRN PRN (Reason: Cough) albuterol sulfate [Ventolin HFA] 90 mcg/actuation HFA aerosol inhaler 1 - 2 puff inhalation Q4H PRN PRN (Reason: Wheezing) Qty: 1 0RF Primary Care Provider: Jim Panchal Referrals: Jim Panchal MD [Primary Care Provider] - 1 Week Activity Restrictions/Additional Instructions: Your trach was replaced after being cleaned. Keep your follow-up with your specialist in [place]. Disposition Disposition: Home, Self Care
--- NOTE | 2022-05-16 21:46 | CPS ---
PT CAME IN WITH TRACH COMPLETELY REMOVED. AFTER CLEANING THE STOMA AND TRACH PROPERLY, TRACH WAS PLACED BACK INTO STOMA. AND SECURED WITH TRACH TIES. INNER CANNULA WAS REMOVED BY PATIENT AT HOME AND PATIENT STATED SHE HAD LOST IT. WE DID NOT HAVE THE CORRECT INNER CANNULA TO PLACE BACK INTO THE TRACH.
== END 2022-05-16 23:07 | disposition home or self-care (01) ==
PROVIDERS: Emergency Provider Emergency Medicine; PCP Family Medicine; Visit Provider Emergency Medicine
DX: J95.03 Malfunction of tracheostomy stoma (principal); R00.0 Tachycardia, unspecified; F17.210 Nicotine dependence, cigarettes, uncomplicated; M79.604 Pain in right leg; M79.605 Pain in left leg
CPT/HCPCS: 31720; 93970; 99283

== ENCOUNTER → 2022-05-16 | Outpatient (CLI) | payer MEDICARE, MEDICAID, SELFPAY ==
--- NOTE | 2022-05-16 09:44 | VDLE_ITS ---
Reason For Study: pain RIGHT LEFT GSV is normal. GSV is normal. CFV is compressible, spontaneous, phasic, CFV is compressible, spontaneous, phasic, competent and demonstrates normal competent, and demonstrates normal augmentation. augmentation. FV is compressible, spontaneous, phasic, FV is compressible, spontaneous, phasic, competent and demonstrates normal competent and demonstrates normal augmentation. augmentation. POP V is compressible, spontaneous, phasic, POP V is compressible, spontaneous, phasic, competent and demonstrates normal competent and demonstrates normal augmentation. augmentation. T/P Trunk is compressible. T/P Trunk is compressible. PTV is compressible. PTV is compressible. RT PerV is compressible. LT PerV is compressible. Procedure This is a venous duplex using B-mode, color flow and spectral Doppler. Exam performed in department. The exam was diagnostic. VL/Venous Duplex US - Junior Extrem Interpretation Summary Deep veins of the bilateral lower extremities are patent and compressible segme ntally. There is no evidence of bilateral lower extremity deep vein thrombosis. The bilateral great saphenous veins appear patent and compressible segmentally. Ordering Physician: Stephane Becker Referring Physician: Matty Panchal MD Performed By: Sukh Blackwood RVT
== END | disposition home or self-care (01) ==
LOC: VL 09:44
PROVIDERS: PCP Family Medicine; Referring Provider Emergency Medicine; Visit Provider Emergency Medicine
DX: M79.604 Pain in right leg (principal); M79.605 Pain in left leg
CPT/HCPCS: 93970

== ENCOUNTER → 2022-05-19 | Outpatient (CLI) | payer MEDICARE, MEDICAID, SELFPAY ==
[2022-05-19 17:43] LABS: Absolute Lymphocyte Count 2.67 X10^3/uL (0.83-4.51); Absolute Neutrophil Count 3.6 X10^3/uL (2.0-7.7); Basophil# 0.06 X10^3/uL; Basophil% 0.8 % (0-1); Eosinophil# 0.21 X10^3/uL; Hematocrit 32.3 % (37-47); Hemoglobin 10.2 g/dL (12.0-15.0); Lymphocyte # 2.67 X10^3/ul (0.83-4.51); Lymphocyte % 37.7 % (19-41); Mean Corp Hgb Conc 31.6 g/dL (32-36); Mean Corpuscular Hgb 32.5 pg (27.0-32.0); Mean Corpuscular Volume 102.9 fL (81-99); Monocyte# 0.56 X10^3/uL; Monocyte% 7.9 % (0-10); NRBC Flagged by Analyzer 0 % (0-5); Neutrophil # 3.56 X10^3/uL (2.7-7.7); Neutrophil % 50.3 % (47-70); Platelet Count 326 K/mm3 (150-450); RBC Distribution Width CV 13.6 % (11.6-14.6); RBC Distribution Width SD 51.4 fl (35.1-43.9); RET-HE 31.7 pg (30-35); Red Blood Count 3.14 M/mm3 (4.2-5.4); Reticulocyte Count 2.66 % (0.5-1.5); White Blood Count 7.1 K/mm3 (4.4-11.0)
[2022-05-19 17:51] LABS: Erythrocyte Sedimentation Rate 18 mm/hr (0-30)
[2022-05-19 18:33] LABS: Ferritin 59 ng/mL (8-252); Iron 39 ug/dL (50-170); Iron Binding Capacity,Total 245 ug/dL (250-450); Prealbumin 11.3 mg/dL (20.0-40.0); Thyroid Stim Hormone (TSH) 0.05 uIU/mL (0.358-3.74)
[2022-05-20 09:25] LABS: Free T3 4.4 pg/mL (2.18-3.98); T4 Free Direct 1.31 ng/dL (0.76-1.46)
== END | disposition home or self-care (01) ==
PROVIDERS: PCP Family Medicine; Referring Provider Family Medicine; Visit Provider Family Medicine
DX: D64.9 Anemia, unspecified (principal); R22.43 Localized swelling, mass and lump, lower limb, bilateral; M79.7 Fibromyalgia
CPT/HCPCS: 36415; 82728; 83540; 83550; 84134; 84439; 84443; 84481; 85025; 85045; 85652; 86140

== ENCOUNTER → 2022-06-16 | Outpatient (CLI) | payer MEDICARE, MEDICAID, SELFPAY ==
[2022-06-16 12:45] LABS: Hematocrit 42.4 % (37-47); Hemoglobin 13.2 g/dL (12.0-15.0); Mean Corp Hgb Conc 31.1 g/dL (32-36); Mean Corpuscular Hgb 31.5 pg (27.0-32.0); Mean Corpuscular Volume 101.2 fL (81-99); Mean Platelet Vol. 9.6 fl (6.2-12.0); Platelet Count 272 K/mm3 (150-450); RBC Distribution Width CV 13.3 % (11.6-14.6); Red Blood Count 4.19 M/mm3 (4.2-5.4)
[2022-06-16 13:48] LABS: ALB/GLOB Ratio 1.2 RATIO (0.9-2.4); AST(SGOT) 12 U/L (15-37); Alanine Aminotransfer ALT/SGPT 16 U/L (13-56); Albumin, Serum 3.8 g/dL (3.2-5.0); Alkaline Phosphatase 69 U/L (45-117); Anion Gap 4 (5-15); BUN 11 mg/dL (7-18); BUN/Creat Ratio 16.2 RATIO (10-20); Calcium,Total 9.2 mg/dL (8.5-10.1); Chloride 108 mmol/L (98-107); Creatinine, Serum 0.68 mg/dL (0.55-1.02); EST Glomerular Filtration Rate 96 mL/min (>60); Est Glom Filt Rate - Afr Amer 116 mL/min (>60); Free T3 1.8 pg/mL (2.18-3.98); Globulin 3.3 g/dL (2.2-4.2); Glucose 106 mg/dL (74-106); Potassium 3.7 mmol/L (3.5-5.1); Protein, Total 7.1 g/dL (6.4-8.2); Sodium Level 140 mmol/L (136-145); T4 Free Direct 0.42 ng/dL (0.76-1.46); Thyroid Stim Hormone (TSH) 6.63 uIU/mL (0.358-3.74)
== END | disposition home or self-care (01) ==
PROVIDERS: PCP Family Medicine; Referring Provider Internal Medicine Endocrinology, Diabetes & Metabolism; Visit Provider Internal Medicine Endocrinology, Diabetes & Metabolism
DX: E05.00 Thyrotoxicosis with diffuse goiter without thyrotoxic crisis or storm (principal); E55.9 Vitamin D deficiency, unspecified; R76.8 Other specified abnormal immunological findings in serum
CPT/HCPCS: 36415; 80053; 84439; 84443; 84481; 85027

== ENCOUNTER → 2022-08-18 | Outpatient (CLI) | payer MEDICARE, MEDICAID, SELFPAY ==
[2022-08-18 13:30] LABS: Vitamin B12 616 pg/mL (211-911)
[2022-08-18 14:41] LABS: ALB/GLOB Ratio 1.3 RATIO (0.9-2.4); AST(SGOT) 153 U/L (15-37); Alanine Aminotransfer ALT/SGPT 239 U/L (13-56); Albumin, Serum 4.1 g/dL (3.2-5.0); Alkaline Phosphatase 225 U/L (45-117); Anion Gap 6 (5-15); BUN 11 mg/dL (7-18); BUN/Creat Ratio 14.6 RATIO (10-20); Calcium,Total 9.1 mg/dL (8.5-10.1); Chloride 107 mmol/L (98-107); Creatinine, Serum 0.75 mg/dL (0.55-1.02); EST Glomerular Filtration Rate 85 mL/min (>60); Est Glom Filt Rate - Afr Amer 103 mL/min (>60); Free T3 3.5 pg/mL (2.18-3.98); Globulin 3.2 g/dL (2.2-4.2); Glucose 97 mg/dL (74-106); Potassium 4.1 mmol/L (3.5-5.1); Protein, Total 7.3 g/dL (6.4-8.2); Sodium Level 139 mmol/L (136-145); T4 Free Direct 0.91 ng/dL (0.76-1.46)
[2022-08-18 15:08] LABS: Hematocrit 36.7 % (37-47); Hemoglobin 12.1 g/dL (12.0-15.0); Mean Corpuscular Hgb 31.6 pg (27.0-32.0); Mean Corpuscular Volume 95.8 fL (81-99); Mean Platelet Vol. 8.7 fl (6.2-12.0); Platelet Count 303 K/mm3 (150-450); RBC Distribution Width CV 14.7 % (11.6-14.6); RBC Distribution Width SD 51.5 fl (35.1-43.9); Red Blood Count 3.83 M/mm3 (4.2-5.4); White Blood Count 8.1 K/mm3 (4.4-11.0)
== END | disposition home or self-care (01) ==
LOC: MTLAB 11:11
PROVIDERS: PCP Family Medicine; Referring Provider Internal Medicine Endocrinology, Diabetes & Metabolism; Visit Provider Internal Medicine Endocrinology, Diabetes & Metabolism
DX: E05.00 Thyrotoxicosis with diffuse goiter without thyrotoxic crisis or storm (principal); E55.9 Vitamin D deficiency, unspecified; R76.8 Other specified abnormal immunological findings in serum
CPT/HCPCS: 36415; 80053; 82607; 82746; 84439; 84443; 84481; 85027

== ENCOUNTER 2022-08-20 08:22 | Emergency (ER) | payer MEDICARE, MEDICAID, SELFPAY ==
[2022-08-20 08:23] VITALS: BP 136/74; PULSE 107; RESP 14; TEMP 36.6; O2SAT 100; BMI 23.4
--- NOTE | 2022-08-20 08:37 | ED.VIS.LOWEX ---
HPI History of Present Illness Chief Complaint: Lower Extremity Injury Narrative Narrative: 51-year-old female past medical history of chronic back problems, states that she does not like to bend a lot because of her back problems. She has been doing planting in her garden/yard and has been squatting instead to avoid bending over. She states over the last few days to week, she has had pain in the medial aspect of her left knee. She had gotten up to standing from a squatting position, felt a pop in her left knee. Now whenever she bends it she hears clicking and popping. She complains of pain along the medial aspect of the left knee. She noticed the area was also swollen. She denies any direct trauma or fall onto her knee. No chest pain or shortness of breath. She has been taking ibuprofen and Tylenol for pain and using her cane. No fevers or chills. She presents to the emergency department wanting an x-ray. [facility] Medical History Arthritis Back pain Fibromyalgia Graves' disease Luis Enrique's disease Hepatitis History of pain when walking History of steroid therapy Hx of ovarian cyst Smoker Spine fracture Thyroid disease Wears dentures Wears glasses Home Medications baclofen 20 mg tablet 20 mg PO TID 01/06/15 [History Last Taken Unknown] cholecalciferol (vitamin D3) 25 mcg (1,000 unit) capsule (Vitamin D3) 50 mcg PO DAILY 07/23/21 [History Last Taken Unknown] duloxetine 30 mg capsule,delayed release 30 mg PO DAILY 07/23/21 [History Last Taken Unknown] duloxetine 60 mg capsule,delayed release 60 mg PO DAILY 07/23/21 [History Last Taken Unknown] gabapentin 800 mg tablet 800 mg PO TIDCM 07/23/21 [History Last Taken Unknown] oxycodone-acetaminophen 5 mg-325 mg tablet (Percocet) 1 tab PO Q6H PRN pain 3 days #12 tabs 08/29/21 [Rx Last Taken Unknown] amitriptyline 25 mg tablet 25 - 50 mg PO QHS 02/10/22 [History Last Taken Unknown] methimazole 5 mg tablet 5 mg PO MOTUTHFRSA 02/10/22 [History Last Taken Unknown] albuterol sulfate 90 mcg/actuation aerosol inhaler (Ventolin HFA) 1 - 2 puff inhalation Q4H PRN PRN Wheezing #1 ea 05/15/22 [Rx Last Taken Unknown] ascorbic acid (vitamin C) 500 mg 1XD 05/15/22 [History Last Taken Unknown] buprenorphine 5 mcg/hour weekly transdermal patch 5 mcg transdermal QWEEK 05/15/22 [History Last Taken Unknown] guaifenesin 100 mg Q6H PRN PRN Cough 05/15/22 [History Last Taken Unknown] Allergy/AdvReac Type Severity Reaction Status Date / Time levetiracetam [From Keppra] Allergy PANICK Verified 08/20/22 08:23 ATTACKS Penicillins [PCN] Allergy Hives Verified 08/20/22 08:23 pregabalin [From Lyrica] Allergy Other Verified 08/20/22 08:23 zolpidem tartrate Allergy Other Verified 08/20/22 08:23 [From Ambien] Surgical History History of surgery Hx laparoscopic cholecystectomy Hx of tubal ligation Social History Smoking Status: Current every day smoker tobacco type: cigarettes ROS ROS ED ROS Narrative Constitutional: No fever, no chills. HEENT: No sore throat. No neck pain. No loss of vision. No rhinorrhea. Cardiovascular: No chest pain. No palpitations. No pedal edema. Respiratory: No cough, no shortness of breath. Abdominal: No abdominal pain. No nausea. No vomiting. Genitourinary: No dysuria. No hematuria. Musculoskeletal: No myalgias. Left medial knee pain. Neurologic: No headaches. No dizziness. No lightheadedness. Skin: No rash. No change in color. Psychiatric: No depression. No anxiety. EXAM Physical Exam Narrative Exam Narrative: Afebrile. Vital signs noted. HEENT: Normocephalic. Atraumatic. PERRL, EOMI. Neck soft and supple. No point tenderness or step off. Cardiovascular: Regular rate and rhythm. No murmurs, rubs, or gallops appreciated. Respiratory: No tachypnea. Lungs clear to auscultation bilaterally. Gastrointestinal: Abdomen soft, nontender, with normoactive bowel sounds. No rebound or guarding. Neurological: Awake. Alert. Nonfocal, nonlateralizing. Skin: No rash. Normal color. No pallor. Musculoskeletal: No pedal edema. Full range of motion extremities. Mild tenderness to palpation left medial meniscal line and along medial collateral ligament. Flexion and extension mechanism intact. Neurovascular intact distally with palpable dorsalis pedis pulse. EHL intact, left. Const Vital Signs: 08/20/22 08:23 Temperature 98 F Temperature Source Temporal Pulse Rate 107 H Respiratory Rate 14 Blood Pressure 136/74 H Blood Pressure Mean 94 Pulse Ox 100 Oxygen Delivery Method Room Air MDM MDM MDM Narrative Medical decision making narrative: Concern is for internal derangement of knee versus osteoarthritis. She could have a possible meniscal tear. However, she denies her knee locking up. X-rays were obtained of the left knee and 4 views and interpreted by myself independently as no evidence of acute fracture, no significant effusion. There is a small effusion. I reviewed the radiology report. This confirms my independent interpretation. As there is a small effusion, she most likely has an internal derangement of her knee. At this point in time, she was placed in an Rufus wrap for support. She will continue ice, elevation, Tylenol, and ibuprofen at home. She was referred to orthopedics. She was told she may need an outpatient MRI, and I suggested that she follow-up with orthopedics for further evaluation and management. I feel she be discharged safely home with follow-up. I do not feel narcotic pain medications are indicated, nor do I feel that she requires observation at this time. Disposition is discharged home in stable condition. Radiography Chest X-Ray - ED: Read by ED Physician Diagnostic Testing: Clinical Impression(s) from Imaging Studies Knee X-Ray 08/20/22 08:44 IMPRESSION: Small joint effusion. Electronically Signed: Kei Driscoll MD at 9:15 EDT , Discharge Plan Triage Chief Complaint: Lower Extremity Injury ED Provider: Stephane Becker Dx/Rx/DC Orders Clinical Impression: Left knee sprain, Internal derangement of knee involving medial meniscus Instructions: ED Meniscal Injury Knee Poss, ED Knee Sprain Prescriptions: No Action baclofen 20 MG tablet 20 mg PO TID Label Comments: FIBROMYALGIA gabapentin 800 mg tablet 800 mg PO TIDCM Label Comments: take 1 tablet by mouth three times a day cholecalciferol (vitamin D3) [Vitamin D3] 25 mcg (1,000 unit) Capsule 50 mcg PO DAILY duloxetine 30 mg capsule,delayed release(DR/EC) 30 mg PO DAILY Label Comments: take 1 capsule by mouth once daily duloxetine 60 mg capsule,delayed release(DR/EC) 60 mg PO DAILY Label Comments: take 1 capsule by mouth once daily oxycodone-acetaminophen [Percocet] 5-325 mg tablet 1 tab PO Q6H PRN (Reason: pain) 3 Days Qty: 12 0RF amitriptyline 25 mg tablet 25 - 50 mg PO QHS Label Comments: TAKE 1-2 TABLETS BY MOUTH AT BEDTIME methimazole 5 mg tablet 5 mg PO MOTUTHFRSA Label Comments: TAKE 1 TABLET BY MOUTH ONCE DAILY (SKIP TUESDAY AND TUESDAY) buprenorphine 5 mcg/hour patch weekly 5 mcg transdermal QWEEK ascorbic acid (vitamin C) 500 mg 1XD guaifenesin 100 mg Q6H PRN PRN (Reason: Cough) albuterol sulfate [Ventolin HFA] 90 mcg/actuation HFA aerosol inhaler 1 - 2 puff inhalation Q4H PRN PRN (Reason: Wheezing) Qty: 1 0RF Primary Care Provider: Jim Panchal Referrals: Jim Panchal MD [Primary Care Provider] - 3-5 Days if not improving Kraig Hickey, DO [Med Staff - Active Staff] - As soon as possible Disposition Disposition: Home, Self Care
--- NOTE | 2022-08-20 08:44 | RAD_ITS ---
STUDY: X-RAY - LEFT KNEE REASON FOR EXAM: Female, 51 years old. Pain TECHNIQUE: 4 view(s) of the knee. COMPARISON: None. FINDINGS: Normal visualized distal femur. Normal visualized proximal tibia and fibula. Normal proximal tibiofibular articulation. There is no demonstrated fracture. Normal medial femorotibial compartment. Normal lateral femorotibial compartment. Normal patellofemoral articulation. There is a soft tissue prominence in the suprapatellar region suggesting a small volume joint effusion. The soft tissue structures are unremarkable. RAD/Knee 4 or More Views IMPRESSION: Small joint effusion. Electronically Signed: Kei Driscoll MD at 9:15 EDT ,
== END 2022-08-20 09:55 | disposition home or self-care (01) ==
LOC: ED 08:58
PROVIDERS: Emergency Provider Emergency Medicine; PCP Family Medicine; Visit Provider Emergency Medicine
DX: S83.92XA Sprain of unspecified site of left knee, initial encounter (principal); F17.210 Nicotine dependence, cigarettes, uncomplicated; M23.8X2 Other internal derangements of left knee; X58.XXXA Exposure to other specified factors, initial encounter
CPT/HCPCS: 73564; 99282

== ENCOUNTER 2022-09-20 10:23 | Outpatient (CLI) | payer MEDICARE, MEDICAID, SELFPAY ==
[2022-09-20 11:21] LABS: Hematocrit 45.1 % (37-47); Hemoglobin 14.6 g/dL (12.0-15.0); Mean Corp Hgb Conc 32.4 g/dL (32-36); Mean Corpuscular Hgb 32.4 pg (27.0-32.0); Mean Platelet Vol. 8.5 fl (6.2-12.0); Platelet Count 319 K/mm3 (150-450); RBC Distribution Width CV 14.4 % (11.6-14.6); RBC Distribution Width SD 53.2 fl (35.1-43.9); Red Blood Count 4.51 M/mm3 (4.2-5.4); White Blood Count 10.8 K/mm3 (4.4-11.0)
[2022-09-20 11:52] LABS: Vitamin B12 480 pg/mL (211-911)
[2022-09-20 12:45] LABS: ALB/GLOB Ratio 1.2 RATIO (0.9-2.4); AST(SGOT) 49 U/L (15-37); Alanine Aminotransfer ALT/SGPT 81 U/L (13-56); Albumin, Serum 4.2 g/dL (3.2-5.0); Alkaline Phosphatase 165 U/L (45-117); Anion Gap 2 (5-15); BUN 9 mg/dL (7-18); BUN/Creat Ratio 11.2 RATIO (10-20); Calcium,Total 9.1 mg/dL (8.5-10.1); Chloride 107 mmol/L (98-107); EST Glomerular Filtration Rate 79 mL/min (>60); Est Glom Filt Rate - Afr Amer 95 mL/min (>60); Free T3 4.8 pg/mL (2.18-3.98); Globulin 3.6 g/dL (2.2-4.2); Glucose 129 mg/dL (74-106); Potassium 3.8 mmol/L (3.5-5.1); Protein, Total 7.8 g/dL (6.4-8.2); Sodium Level 139 mmol/L (136-145); T4 Free Direct 0.99 ng/dL (0.76-1.46); Thyroid Stim Hormone (TSH) 0.01 uIU/mL (0.358-3.74)
== END 2022-09-20 23:59 | disposition home or self-care (01) ==
PROVIDERS: PCP Family Medicine; Referring Provider Family Medicine; Visit Provider Family Medicine
DX: E05.00 Thyrotoxicosis with diffuse goiter without thyrotoxic crisis or storm (principal); E55.9 Vitamin D deficiency, unspecified; R76.8 Other specified abnormal immunological findings in serum; R79.89 Other specified abnormal findings of blood chemistry
CPT/HCPCS: 36415; 80053; 82607; 82746; 84439; 84443; 84481; 85027

== ENCOUNTER → 2022-09-22 | Outpatient (CLI) | payer MEDICARE, MEDICAID, SELFPAY ==
[2022-09-22 12:45] LABS: Hematocrit 45.7 % (37-47); Hemoglobin 15.5 g/dL (12.0-15.0); Mean Corp Hgb Conc 33.9 g/dL (32-36); Mean Corpuscular Volume 97.4 fL (81-99); Mean Platelet Vol. 8.5 fl (6.2-12.0); Platelet Count 337 K/mm3 (150-450); RBC Distribution Width CV 13.9 % (11.6-14.6); RBC Distribution Width SD 50.4 fl (35.1-43.9); Red Blood Count 4.69 M/mm3 (4.2-5.4); White Blood Count 7.5 K/mm3 (4.4-11.0)
[2022-09-22 13:20] LABS: ALB/GLOB Ratio 1.2 RATIO (0.9-2.4); AST(SGOT) 23 U/L (15-37); Alanine Aminotransfer ALT/SGPT 45 U/L (13-56); Albumin, Serum 4.3 g/dL (3.2-5.0); Alkaline Phosphatase 132 U/L (45-117); Anion Gap 8 (5-15); BUN 10 mg/dL (7-18); BUN/Creat Ratio 13.4 RATIO (10-20); Calcium,Total 9.3 mg/dL (8.5-10.1); Chloride 102 mmol/L (98-107); Creatinine, Serum 0.74 mg/dL (0.55-1.02); EST Glomerular Filtration Rate 86 mL/min (>60); Est Glom Filt Rate - Afr Amer 105 mL/min (>60); Globulin 3.6 g/dL (2.2-4.2); Glucose 120 mg/dL (74-106); Potassium 3.9 mmol/L (3.5-5.1); Protein, Total 7.9 g/dL (6.4-8.2); Sodium Level 136 mmol/L (136-145); Thyroid Stim Hormone (TSH) 0.01 uIU/mL (0.358-3.74)
== END | disposition home or self-care (01) ==
LOC: MTLAB 09:29
PROVIDERS: PCP Family Medicine; Referring Provider Internal Medicine Endocrinology, Diabetes & Metabolism; Visit Provider Internal Medicine Endocrinology, Diabetes & Metabolism
DX: E05.00 Thyrotoxicosis with diffuse goiter without thyrotoxic crisis or storm (principal); R76.8 Other specified abnormal immunological findings in serum; E55.9 Vitamin D deficiency, unspecified
CPT/HCPCS: 36415; 80053; 84439; 84443; 84481; 85027

== ENCOUNTER → 2022-10-25 | Outpatient (CLI) | payer MEDICARE, MEDICAID, SELFPAY ==
[2022-10-25 12:06] LABS: Erythrocyte Sedimentation Rate 11 mm/hr (0-30)
[2022-10-25 12:09] LABS: Hematocrit 43.8 % (37-47); Hemoglobin 14.5 g/dL (12.0-15.0); Mean Corp Hgb Conc 33.1 g/dL (32-36); Mean Corpuscular Hgb 32.4 pg (27.0-32.0); Mean Corpuscular Volume 97.8 fL (81-99); Mean Platelet Vol. 8.6 fl (6.2-12.0); Platelet Count 287 K/mm3 (150-450); RBC Distribution Width CV 12.9 % (11.6-14.6); RBC Distribution Width SD 46.3 fl (35.1-43.9); Red Blood Count 4.48 M/mm3 (4.2-5.4); White Blood Count 8.6 K/mm3 (4.4-11.0)
[2022-10-25 12:56] LABS: AST(SGOT) 15 U/L (15-37); Alanine Aminotransfer ALT/SGPT 15 U/L (13-56); Albumin, Serum 3.8 g/dL (3.2-5.0); Alkaline Phosphatase 107 U/L (45-117); Anion Gap 4 (5-15); BUN 8 mg/dL (7-18); BUN/Creat Ratio 11.4 RATIO (10-20); Calcium,Total 9.1 mg/dL (8.5-10.1); Chloride 105 mmol/L (98-107); EST Glomerular Filtration Rate 93 mL/min (>60); Est Glom Filt Rate - Afr Amer 112 mL/min (>60); Free T3 4.6 pg/mL (2.18-3.98); Globulin 3.8 g/dL (2.2-4.2); Glucose 91 mg/dL (74-106); Protein, Total 7.6 g/dL (6.4-8.2); Sodium Level 137 mmol/L (136-145); T4 Free Direct 0.96 ng/dL (0.76-1.46); Thyroid Stim Hormone (TSH) < 0.01 uIU/mL (0.358-3.74)
== END | disposition home or self-care (01) ==
PROVIDERS: PCP Family Medicine; Referring Provider Internal Medicine Endocrinology, Diabetes & Metabolism; Visit Provider Internal Medicine Endocrinology, Diabetes & Metabolism
DX: E05.90 Thyrotoxicosis, unspecified without thyrotoxic crisis or storm (principal)
CPT/HCPCS: 36415; 80053; 84439; 84443; 84481; 85027; 85652

== ENCOUNTER → 2022-11-08 | Outpatient (CLI) | payer MEDICARE, MEDICAID, SELFPAY ==
--- NOTE | 2022-11-08 15:38 | RAD_ITS ---
INDICATION: CHEST XRAY CHEST TIGHTNESS, SOB, COUGH, FEVER, CHILLS, X 1 WEEK EXAMINATION/TECHNIQUE: X-RAY - XR Chest 2 Views COMPARISON: 05/15/2022 FINDINGS: LINES/DEVICES: Tracheostomy tube was removed. LUNGS: No consolidation. No pneumothorax. MEDIASTINUM: Unremarkable. CARDIAC SILHOUETTE: Not enlarged. BONES AND SOFT TISSUES: No acute abnormalities. Leads overlying the thoracic spine unchanged. RAD/Chest PA and Lateral IMPRESSION: No evidence of active intrathoracic disease. Electronically Signed: Christal King MD at 6:47 EDT ,
== END | disposition home or self-care (01) ==
PROVIDERS: PCP Family Medicine; Referring Provider Family Medicine; Visit Provider Family Medicine
DX: J40 Bronchitis, not specified as acute or chronic (principal)
CPT/HCPCS: 71046

== ENCOUNTER 2022-11-12 10:28 | Day surgery (SDC) | payer MEDICARE, MEDICAID, SELFPAY ==
[2022-11-12] MEDS: Lactated Ringers 1,000 ML 15 ML IV (10:45)
[2022-11-12 11:06] VITALS: BP 118/66; PULSE 97; RESP 17; TEMP 36.4; O2SAT 96; BMI 22.1
[2022-11-12] MEDS: Vancomycin IV 1,000 MG/200 ML BAG 200 MG IV (11:46)
[2022-11-12] MEDS: Lidocaine 0.5%/Epi 1:200 (50ml 50 ML Vial OPERA.SITE (14:45)
[2022-11-12 15:26] VITALS: BP 118/66; BP 131/66; PULSE 102; RESP 18; TEMP 36.8; O2SAT 97
[2022-11-12 15:30] VITALS: BP 118/66; BP 122/62; PULSE 97; RESP 18; O2SAT 97
[2022-11-12 15:35] VITALS: BP 118/66; BP 119/70; PULSE 99; RESP 18; O2SAT 96
[2022-11-12 15:39] VITALS: BP 109/62; BP 118/66; PULSE 96; RESP 18; TEMP 36.7; O2SAT 97
[2022-11-12 15:58] VITALS: BP 118/66
== END 2022-11-12 16:10 | disposition home or self-care (01) ==
LOC: SDC 10:30 → AC 10:32
PROVIDERS: PCP Family Medicine; Referring Provider Anesthesiology Pain Medicine; Visit Provider Anesthesiology Pain Medicine
PROC: (CPT 63688; principal; 2022-11-12 12:50)
DX: G89.4 Chronic pain syndrome (principal); M96.1 Postlaminectomy syndrome, not elsewhere classified; M54.16 Radiculopathy, lumbar region; M51.36 Other intervertebral disc degeneration, lumbar region; M51.37 Other intervertebral disc degeneration, lumbosacral region; M51.27 Other intervertebral disc displacement, lumbosacral region; E06.3 Autoimmune thyroiditis; E05.00 Thyrotoxicosis with diffuse goiter without thyrotoxic crisis or storm; Z87.891 Personal history of nicotine dependence; Z79.899 Other long term (current) drug therapy
CPT/HCPCS: 63685; C1820; J7120; J2405

== ENCOUNTER 2022-12-03 14:26 | Emergency (ER) | payer MEDICARE, MEDICAID, SELFPAY ==
[2022-12-03 14:42] VITALS: BP 126/82; PULSE 118; RESP 18; TEMP 36.6; O2SAT 96
--- NOTE | 2022-12-03 15:54 | EDS_ITS ---
HPI History of Present Illness Chief Complaint: Back Detail of Chief Complaint: Back pain Informant: patient Narrative Narrative: Patient presents with complaint of pain in her back and also to her left knee. Patient has history of chronic sciatica and is in pain management with Dr. Berkowitz. Patient has stimulator in her back. Patient also fell 2 months ago and injured her left knee and she is seeing orthopedics for that. Her x-rays were negative but needs an MRI. She is also having pain in that knee. Patient currently on gabapentin as well as baclofen. She had no new injuries. She denies loss of bowel or bladder function or weakness of the extremities. She called her painter and decorator apprentice office and was told to come to the emergency department. [facility] Medical History (Updated 12/03/22 @ 16:[address] Artie Nguyen DO) Abrasion Arthritis Back pain Easy bruising Fibromyalgia Graves' disease Luis Enrique's disease Hepatitis History of edema History of pain when walking History of steroid therapy Hoarseness Hx of ovarian cyst Injury of head and neck Post-menopausal Smoker Spine fracture Thyroid disease Wears dentures Wears glasses Home Medications baclofen 20 mg tablet 20 mg PO TID 01/06/15 [History Last Taken Unknown] cholecalciferol (vitamin D3) 25 mcg (1,000 unit) capsule (Vitamin D3) 50 mcg PO DAILY 07/23/21 [History Last Taken Unknown] duloxetine 30 mg capsule,delayed release 30 mg PO DAILY 07/23/21 [History Last Taken Unknown] duloxetine 60 mg capsule,delayed release 60 mg PO DAILY 07/23/21 [History Last Taken Unknown] gabapentin 800 mg tablet 800 mg PO TIDCM 07/23/21 [History Last Taken Unknown] amitriptyline 25 mg tablet 25 - 50 mg PO QHS 02/10/22 [History Last Taken Unknown] methimazole 5 mg tablet 5 mg PO DAILY 02/10/22 [History Last Taken Unknown] albuterol sulfate 90 mcg/actuation aerosol inhaler (Ventolin HFA) 1 - 2 puff inhalation Q4H PRN PRN Wheezing #1 ea 05/15/22 [Rx Last Taken Unknown] ascorbic acid (vitamin C) 500 mg PO 1XD 05/15/22 [History Last Taken Unknown] oxycodone-acetaminophen 5 mg-325 mg tablet (Percocet) 1 tab PO Q8H PRN pain 3 days #15 tabs 12/03/22 [Rx Last Taken Unknown] Allergy/AdvReac Type Severity Reaction Status Date / Time levetiracetam [From Keppra] Allergy PANICK Verified 12/03/22 14:42 ATTACKS Penicillins [PCN] Allergy Hives Verified 12/03/22 14:42 pregabalin [From Lyrica] Allergy Other Verified 12/03/22 14:42 zolpidem tartrate Allergy Other Verified 12/03/22 14:42 [From Ambien] Surgical History History of surgery Hx laparoscopic cholecystectomy Hx of tubal ligation Social History Smoking Status: Current every day smoker tobacco type: cigarettes ROS ROS ED Review of Systems ROS Unobtainable: other Constitutional Constitutional ED: Reports lethargy; Denies chills, fever(s), sweats or weight loss Eyes Eyes: Denies blurry vision, change in vision or diplopia ENT ENT ED: Denies rhinorrhea or sore throat Cardiovascular Cardiovascular: Denies chest pain, orthopnea or racing heartbeat Respiratory/Chest Respiratory/Chest: Denies cough, dyspnea, dyspnea on exertion, orthopnea or sputum Gastrointestinal Gastrointestinal: Denies abdominal pain, diarrhea, nausea or vomiting Genitourinary Genitourinary ED: Denies dysuria, hematuria or urinary frequency Musculoskeletal Musculoskeletal: Reports back pain and other Details: Left knee pain ; Denies arthralgias, myalgias or neck pain Integumentary Denies abscess, Abrasions or rash Neurologic Neurologic: Denies headache(s) or weakness Psychiatric Psychiatric: Denies anxiety, depression or suicidal thoughts Endocrine Endocrinology: Denies polydipsia, polyphagia or polyuria Hematologic/Lymphatic Hematologic/Lymphatic: Denies easy bleeding, easy bruising or lymphadenopathy Allergic/Immunologic Allergic/Immunologic ED: Denies mouth swelling, tongue swelling or urticaria EXAM Physical Exam Const Vital Signs: 12/03/22 14:42 12/03/22 16:53 Temperature 97.8 F Temperature Source Temporal Pulse Rate 118 H 82 Respiratory Rate 18 16 Blood Pressure 126/82 H 96/56 L Blood Pressure Mean 96 69 Pulse Ox 96 Oxygen Delivery Method Room Air Positive well nourished and well developed General Appearance ED: well developed and NAD HEENT Reports TM's clear and moist mucous membranes normocephalic and atraumatic; Negative for trauma or tenderness Tympanic Membrane ED: Yes TM's clear Eyes PERRL and EOMs intact bilaterally General Eye ED: Negative for pale conjunctiva or scleral icterus Neck no lymphadenopathy, supple and no JVD General: Negative for tenderness Chest Wall inspection of chest normal and palpation of chest normal Chest: Negative for tenderness Resp normal respiratory effort and clear to auscultation bilaterally Effort and Inspection: Negative for respiratory distress or pain with movement Auscultation: Negative for rhonchi, wheezes or diminished lung sounds Cardio regular rate, regular rhythm, S1 normal heart sound, S2 normal heart sound and no murmurs Peripheral Pulses: pulses 2+ throughout GI normal to inspection, nondistended, normoactive bowel sounds, soft to palpation, non-tender, non-distended and no masses Back/Spine no CVA tenderness Back/Spine Narrative: Tenderness on exam of her back. She has no evidence of erythema or warmth noted. She has positive straight leg raise on the right with pain at about 60 degrees. Deep tendon reflexes plus 2 out of 4 bilaterally at the patella and Achilles bilaterally. Patient has normal L5 extension bilaterally. Normal sensation to light touch. Extremity Extremity Narrative: Patient presents with a brace on the left knee. She has somewhat decreased range of motion in flexion extension of the knee secondary to pain. No significant swelling noted. She is neurovascular intact distally. General Extremety ED: Negative for edema General Extremity: Negative for edema Neuro oriented x3, CN's II-XII intact bilaterally, no sensory deficits noted and gait normal Sensorium / Orientation: awake, alert, oriented to person, oriented to place and oriented to time Motor Exam: strength 5/5 throughout and strength abnormal Psych mental status grossly normal Skin no rashes or lesions noted and no wounds MDM MDM MDM Narrative Medical decision making narrative: Exacerbation of her chronic back pain and pain in her left knee. No new injury. No red flag symptoms of cauda equina. Patient was given a dose of Dilaudid 1 mg IM. I discussed case with the office of her painter and decorator apprentice who spoke with the painter and decorator apprentice and is fine with having a prescription for oxycodone for home until she can be seen next week. Patient comfortable with plan. Discharge Plan Triage Chief Complaint: Back ED Provider: Ungur,Remus Dx/Rx/DC Orders Clinical Impression: Acute knee pain, Acute exacerbation of chronic low back pain Instructions: ED Back Pain (Acute or Chronic), ED Chronic Pain Prescriptions: New oxycodone-acetaminophen [Percocet] 5-325 mg tablet 1 tab PO Q8H PRN (Reason: pain) 3 Days Qty: 15 0RF No Action baclofen 20 MG tablet 20 mg PO TID Patient Comments: FIBROMYALGIA gabapentin 800 mg tablet 800 mg PO TIDCM Patient Comments: take 1 tablet by mouth three times a day cholecalciferol (vitamin D3) [Vitamin D3] 25 mcg (1,000 unit) Capsule 50 mcg PO DAILY duloxetine 30 mg capsule,delayed release(DR/EC) 30 mg PO DAILY Patient Comments: take 1 capsule by mouth once daily duloxetine 60 mg capsule,delayed release(DR/EC) 60 mg PO DAILY Patient Comments: take 1 capsule by mouth once daily amitriptyline 25 mg tablet 25 - 50 mg PO QHS Patient Comments: TAKE 1-2 TABLETS BY MOUTH AT BEDTIME methimazole 5 mg tablet 5 mg PO DAILY ascorbic acid (vitamin C) 500 mg PO 1XD albuterol sulfate [Ventolin HFA] 90 mcg/actuation HFA aerosol inhaler 1 - 2 puff inhalation Q4H PRN PRN (Reason: Wheezing) Qty: 1 0RF Primary Care Provider: Jim Panchal Referrals: Víctor Berkowitz MD [Med Staff - Active Staff] - 3-5 Days Jim Panchal MD [Primary Care Provider] - Disposition Disposition: Home, Self Care Discharge Date/Time: 12/03/22 16:59
[2022-12-03] MEDS: Ondansetron 4 MG/2 ML Vial IM (16:19)
[2022-12-03] MEDS: HYDROmorphone 1 MG/ML Syringe IM (16:19)
[2022-12-03 16:24] VITALS: BMI 22.4
[2022-12-03 16:53] VITALS: BP 96/56; PULSE 82; RESP 16
== END 2022-12-03 16:59 | disposition home or self-care (01) ==
LOC: ED 16:45
PROVIDERS: Emergency Provider Emergency Medicine; PCP Family Medicine; Visit Provider Emergency Medicine
DX: M25.562 Pain in left knee (principal); M54.50 Low back pain, unspecified; G89.29 Other chronic pain; F17.210 Nicotine dependence, cigarettes, uncomplicated
CPT/HCPCS: 96372; 99284; J2405

== ENCOUNTER 2022-12-21 18:01 | Emergency (ER) | payer MEDICARE, MEDICAID, SELFPAY ==
[2022-12-21 18:02] VITALS: BP 137/110; PULSE 118; RESP 20; TEMP 36.4; O2SAT 98
--- NOTE | 2022-12-21 18:32 | ED.RN ---
PT STATES TO THIS NURSE DURING TRIAGE THAT SHE CAN BARELY WALK. UPON WAITING IN WAITING ROOM PT OBSERVED WALKING OUT OF THE DEPARTMENT MULTIPLE TIMES TO SMOKE
--- NOTE | 2022-12-21 19:04 | ED.RN ---
PT AMBULATED TO ER ROOM WITH A SMILE ON HER FACE AND LAUGHING UNTIL SHE GOT TO THE DOORWAY, THEN PT TURNED TO A LOOK OF PAIN AND STARTED ACTING THOUGH SHE WAS GOING TO CRY. THERE WAS NO CHANGE IN HER GAIT OR SIGN THAT HER PAIN SUDDENLY OCCURRED. SHORTLY AFTER BEING LEFT IN HER ROOM SHE BEGAN TO CRY LOUDLY. THIS NURSE WENT IN TO SEE WHAT WAS GOING ON AND PT STATED HER PAIN WAS BAD. ASKED PT WHAT CHANGED FROM THE TIME SHE WAS WALKING BACK AND FORTH OUTSIDE TO SMOKE WITH NO SIGN OF DISTRESS TO NOW THAT SHE IS WAITING FOR THE DR. PT WAS UNABLE TO GIVE A ANSWER BUT STATED IT JUST HURT. THE CRYING THEN STOPPED.
--- NOTE | 2022-12-21 19:33 | ED.VIS.BACK ---
HPI History of Present Illness Chief Complaint: Back Informant: patient Onset/Context/Timing Onset: Today Context: Sudden Onset Injury: bending Timing: Continuous Quality: Aching Location: Lumbar Current Severity: Severe Maximum Severity: Severe Worsened by: improves with Movement, Ambulation and Bending Relieved by: Remaining Still Associated Symptoms Associated Symptoms: Negative for Numbness, Tingling, Radiation to Right Leg, Radiation to Left Leg, Abdominal Pain, Unable to Ambulate, Unable to Transfer, Urinary Retention, Urinary Incontinence, Constipation or Fecal Incontinence Narrative Narrative: Patient states she has a history of chronic low back pain and sees Dr. Berkowitz for injections. She had 1 a week or so ago. She states this morning she bent over to plug in a lamp and upon standing up had sudden onset severe low back pain seems to be more in the middle of her lumbosacral spine, has been hurting her ever since pressure with any movement, similar to her chronic pain. This is a little away from where her injection was. She denies any sciatica pain, bowel or bladder dysfunction, numbness tingling, or inability to ambulate. Just hurts more to move but severe at rest too. Prior similar symptoms: Yes and With Prior Back Pain [facility] Medical History Abrasion Arthritis Back pain Easy bruising Fibromyalgia Graves' disease Luis Enrique's disease Hepatitis History of edema History of pain when walking History of steroid therapy Hoarseness Hx of ovarian cyst Injury of head and neck Post-menopausal Smoker Spine fracture Thyroid disease Wears dentures Wears glasses Home Medications baclofen 20 mg tablet 20 mg PO TID 01/06/15 [History Last Taken Unknown] cholecalciferol (vitamin D3) 25 mcg (1,000 unit) capsule (Vitamin D3) 50 mcg PO DAILY 07/23/21 [History Last Taken Unknown] duloxetine 30 mg capsule,delayed release 30 mg PO DAILY 07/23/21 [History Last Taken Unknown] duloxetine 60 mg capsule,delayed release 60 mg PO DAILY 07/23/21 [History Last Taken Unknown] gabapentin 800 mg tablet 800 mg PO TIDCM 07/23/21 [History Last Taken Unknown] amitriptyline 25 mg tablet 25 - 50 mg PO QHS 02/10/22 [History Last Taken Unknown] methimazole 5 mg tablet 5 mg PO DAILY 02/10/22 [History Last Taken Unknown] albuterol sulfate 90 mcg/actuation aerosol inhaler (Ventolin HFA) 1 - 2 puff inhalation Q4H PRN PRN Wheezing #1 ea 05/15/22 [Rx Last Taken Unknown] ascorbic acid (vitamin C) 500 mg PO 1XD 05/15/22 [History Last Taken Unknown] Allergy/AdvReac Type Severity Reaction Status Date / Time levetiracetam [From Keppra] Allergy PANICK Verified 12/21/22 18:05 ATTACKS Penicillins [PCN] Allergy Hives Verified 12/21/22 18:05 pregabalin [From Lyrica] Allergy Other Verified 12/21/22 18:05 zolpidem tartrate Allergy Other Verified 12/21/22 18:05 [From Ambien] Surgical History History of surgery Hx laparoscopic cholecystectomy Hx of tubal ligation Social History Smoking Status: Current every day smoker tobacco type: cigarettes ROS ROS ED Constitutional Constitutional ED: Denies chills or fever(s) Gastrointestinal Gastrointestinal: Denies abdominal pain, constipation, fecal incontinence, nausea or vomiting Genitourinary Genitourinary ED: Reports other Details: no urinary retention ; Denies abdominal discomfort or urinary incontinence Musculoskeletal Musculoskeletal: Reports as per HPI and back pain; Denies neck pain Integumentary Denies rash or wounds Neurologic Neurologic: Denies headache(s), paresthesias or weakness EXAM Physical Exam Const Vital Signs: 12/21/22 18:02 Temperature 97.6 F L Temperature Source Temporal Pulse Rate 118 H Respiratory Rate 20 H Blood Pressure 137/110 H Blood Pressure Mean 119 Pulse Ox 98 Oxygen Delivery Method Room Air Positive well nourished and well developed General Appearance ED: well developed and NAD HEENT Negative for trauma or tenderness Eyes PERRL and EOMs intact bilaterally Neck full ROM and supple GI normal to inspection, nondistended, normoactive bowel sounds, soft to palpation and non-tender Back/Spine normal to inspection Back/Spine Narrative: Small ecchymosis at site of injection, left of midline and caudal to the area where the patient is having pain Lumbar Spine / Lower Back: ROM limited, paraspinal muscle tenderness left (lumbosacral) and straight leg raise negative bilaterally; Negative for lumbar spinal tenderness Extremity normal to inspection, full ROM and no pedal edema Neuro oriented x3 and no sensory deficits noted Sensorium / Orientation: alert Motor Exam: strength 5/5 throughout and clonus absent Deep Tendon Reflexes: Rt Patellar (L4): 2+, Lt Patellar (L4): 2+, Rt Ankle (S1): 2+ and Lt Ankle (S1): 2+ Deep Tendon Reflexes Back: Rt Patellar (L4): 2+, Lt Patellar (L4): 2+, Rt Ankle (S1): 2+ and Lt Ankle (S1): 2+ Plantar Reflex: Downgoing: bilateral Psych thought process normal Mood & Affect: tearful Skin no rashes or lesions noted and no wounds MDM MDM MDM Narrative Medical decision making narrative: Lumbosacral spine x-rays 3 views of my interpretation showed no acute fracture, radiology in agreement. She was given injections of morphine, Norflex, Toradol she is ambulatory and not tearful, feeling a little better on reevaluation, she is calling for a ride home. Radiography Diagnostic Testing: Clinical Impression(s) from Imaging Studies Lumbar Spine X-Ray 12/21/22 19:41 IMPRESSION: Mild spondylosis. No acute fracture or other significant bony pathology Electronically Signed: Bill Golden MD at 19:59 EDT , Discharge Plan Triage Chief Complaint: Back ED Provider: Kei Sutton Dx/Rx/DC Orders Clinical Impression: Acute exacerbation of chronic low back pain, Acute lumbosacral myofascial strain Instructions: ED Back Pain (Acute or Chronic) Prescriptions: No Action baclofen 20 MG tablet 20 mg PO TID Patient Comments: FIBROMYALGIA gabapentin 800 mg tablet 800 mg PO TIDCM Patient Comments: take 1 tablet by mouth three times a day cholecalciferol (vitamin D3) [Vitamin D3] 25 mcg (1,000 unit) Capsule 50 mcg PO DAILY duloxetine 30 mg capsule,delayed release(DR/EC) 30 mg PO DAILY Patient Comments: take 1 capsule by mouth once daily duloxetine 60 mg capsule,delayed release(DR/EC) 60 mg PO DAILY Patient Comments: take 1 capsule by mouth once daily amitriptyline 25 mg tablet 25 - 50 mg PO QHS Patient Comments: TAKE 1-2 TABLETS BY MOUTH AT BEDTIME methimazole 5 mg tablet 5 mg PO DAILY ascorbic acid (vitamin C) 500 mg PO 1XD albuterol sulfate [Ventolin HFA] 90 mcg/actuation HFA aerosol inhaler 1 - 2 puff inhalation Q4H PRN PRN (Reason: Wheezing) Qty: 1 0RF Primary Care Provider: Jim Panchal Referrals: Víctor Berkowitz MD [Med Staff - Active Staff] - Jim Panchal MD [Primary Care Provider] - Disposition Disposition: Home, Self Care
--- NOTE | 2022-12-21 19:41 | RAD_ITS ---
STUDY: X-RAY - LUMBAR SPINE REASON FOR EXAM: Female, 52 years old. pain/injury TECHNIQUE: 3 view(s) of the lumbar spine were obtained. COMPARISON: July 25, 2021 FINDINGS: Normal lumbar lordosis. There is minor levoscoliosis or splinting.. There is a normal alignment of the vertebrae. Narrowed disc space and L5-S1 and mild endplate spurring. . There is also narrowing of the L1-2 disc space Spinal stimulator noted with the tip at the level of the mid thoracic spine. RAD/Lumbar Spine 2 or 3 Views IMPRESSION: Mild spondylosis. No acute fracture or other significant bony pathology Electronically Signed: Bill Golden MD at 19:59 EDT ,
[2022-12-21] MEDS: Orphenadrine 60 MG/2 ML Ampul IM (19:48)
[2022-12-21] MEDS: Morphine 4 MG/ML Syringe IM (19:48)
[2022-12-21] MEDS: Ketorolac 30 MG/ML Syringe IM (19:48)
[2022-12-21 20:56] VITALS: RESP 16
== END 2022-12-21 20:57 | disposition home or self-care (01) ==
PROVIDERS: Emergency Provider Emergency Medicine; PCP Family Medicine; Visit Provider Emergency Medicine
DX: S39.012A Strain of muscle, fascia and tendon of lower back, initial encounter (principal); F17.210 Nicotine dependence, cigarettes, uncomplicated; G89.29 Other chronic pain; Z79.899 Other long term (current) drug therapy; X58.XXXA Exposure to other specified factors, initial encounter
CPT/HCPCS: 72100; 96372; 99282

== ENCOUNTER → 2023-01-17 | Outpatient (CLI) | payer MEDICARE, MEDICAID, SELFPAY ==
[2023-01-17 10:31] LABS: Hematocrit 43.7 % (37-47); Mean Corpuscular Hgb 31.7 pg (27.0-32.0); Mean Corpuscular Volume 99.1 fL (81-99); Mean Platelet Vol. 8.7 fl (6.2-12.0); Platelet Count 322 K/mm3 (150-450); RBC Distribution Width CV 13.4 % (11.6-14.6); RBC Distribution Width SD 49.6 fl (35.1-43.9); Red Blood Count 4.41 M/mm3 (4.2-5.4); White Blood Count 6.5 K/mm3 (4.4-11.0)
[2023-01-17 10:52] LABS: Vitamin D,25 Hydroxy 110.1 ng/mL
[2023-01-17 11:18] LABS: ALB/GLOB Ratio 1.1 RATIO (0.9-2.4); AST(SGOT) 15 U/L (15-37); Alanine Aminotransfer ALT/SGPT 26 U/L (13-56); Albumin, Serum 3.7 g/dL (3.2-5.0); Alkaline Phosphatase 128 U/L (45-117); Anion Gap 7 (5-15); BUN 9 mg/dL (7-18); BUN/Creat Ratio 12.1 RATIO (10-20); Calcium,Total 8.9 mg/dL (8.5-10.1); Chloride 106 mmol/L (98-107); Creatinine, Serum 0.75 mg/dL (0.55-1.02); EST Glomerular Filtration Rate 86 mL/min (>60); Est Glom Filt Rate - Afr Amer 104 mL/min (>60); Free T3 5.9 pg/mL (2.18-3.98); Globulin 3.4 g/dL (2.2-4.2); Glucose 116 mg/dL (74-106); Potassium 3.9 mmol/L (3.5-5.1); Protein, Total 7.1 g/dL (6.4-8.2); Sodium Level 141 mmol/L (136-145); T4 Free Direct 1.23 ng/dL (0.76-1.46); Thyroid Stim Hormone (TSH) < 0.01 uIU/mL (0.358-3.74)
== END | disposition home or self-care (01) ==
LOC: MTLAB 09:03
PROVIDERS: PCP Family Medicine; Referring Provider Internal Medicine Endocrinology, Diabetes & Metabolism; Visit Provider Internal Medicine Endocrinology, Diabetes & Metabolism
DX: E05.00 Thyrotoxicosis with diffuse goiter without thyrotoxic crisis or storm (principal); R76.8 Other specified abnormal immunological findings in serum; E55.9 Vitamin D deficiency, unspecified
CPT/HCPCS: 36415; 80053; 82306; 84439; 84443; 84481; 85027

== ENCOUNTER → 2023-02-23 | Outpatient (CLI) | payer MEDICARE, MEDICAID, SELFPAY | END | disposition home or self-care (01) | PROVIDERS: PCP Family Medicine; Referring Provider Internal Medicine Endocrinology, Diabetes & Metabolism; Visit Provider Internal Medicine Endocrinology, Diabetes & Metabolism | DX: E05.00 Thyrotoxicosis with diffuse goiter without thyrotoxic crisis or storm (principal) | CPT/HCPCS: 36415; 84445 ==

== ENCOUNTER → 2023-03-10 | Outpatient (CLI) | payer MEDICARE, MEDICAID, SELFPAY ==
[2023-03-10 12:18] LABS: Hematocrit 42.6 % (37-47); Hemoglobin 13.7 g/dL (12.0-15.0); Mean Corp Hgb Conc 32.2 g/dL (32-36); Mean Corpuscular Hgb 31.4 pg (27.0-32.0); Mean Corpuscular Volume 97.5 fL (81-99); Mean Platelet Vol. 8.6 fl (6.2-12.0); Platelet Count 351 K/mm3 (150-450); RBC Distribution Width CV 14.4 % (11.6-14.6); RBC Distribution Width SD 51.7 fl (35.1-43.9); Red Blood Count 4.37 M/mm3 (4.2-5.4); White Blood Count 8.3 K/mm3 (4.4-11.0)
[2023-03-10 13:10] LABS: Vitamin D,25 Hydroxy 82.2 ng/mL
[2023-03-10 13:24] LABS: ALB/GLOB Ratio 1.2 RATIO (0.9-2.4); AST(SGOT) 15 U/L (15-37); Alanine Aminotransfer ALT/SGPT 15 U/L (13-56); Albumin, Serum 3.8 g/dL (3.2-5.0); Alkaline Phosphatase 84 U/L (45-117); Anion Gap 6 (5-15); BUN 10 mg/dL (7-18); Calcium,Total 8.5 mg/dL (8.5-10.1); Chloride 107 mmol/L (98-107); Creatinine, Serum 0.71 mg/dL (0.55-1.02); EST Glomerular Filtration Rate 91 mL/min (>60); Est Glom Filt Rate - Afr Amer 110 mL/min (>60); Free T3 3.3 pg/mL (2.18-3.98); Globulin 3.2 g/dL (2.2-4.2); Glucose 102 mg/dL (74-106); Potassium 3.9 mmol/L (3.5-5.1); Sodium Level 140 mmol/L (136-145); Thyroid Stim Hormone (TSH) < 0.01 uIU/mL (0.358-3.74)
== END | disposition home or self-care (01) ==
LOC: MTLAB 09:39
PROVIDERS: PCP Family Medicine; Referring Provider Internal Medicine Endocrinology, Diabetes & Metabolism; Visit Provider Internal Medicine Endocrinology, Diabetes & Metabolism
DX: E05.00 Thyrotoxicosis with diffuse goiter without thyrotoxic crisis or storm (principal); E55.9 Vitamin D deficiency, unspecified; R76.8 Other specified abnormal immunological findings in serum
CPT/HCPCS: 36415; 80053; 82306; 84439; 84443; 84481; 85027

== ENCOUNTER 2023-03-19 20:40 | Emergency (ER) | payer MEDICARE, MEDICAID, SELFPAY ==
[2023-03-19 20:41] VITALS: BP 130/65; PULSE 109; RESP 14; TEMP 35.9; O2SAT 96; BMI 22.5
--- NOTE | 2023-03-19 21:00 | EDS_ITS ---
HPI History of Present Illness Chief Complaint: Confusion Informant: patient and EMS Narrative Narrative: Patient brought in by EMS secondary to confusion. Reportedly the neighbor came over to check on her and felt she was confused and called EMS. Patient states she took her bedtime medication. When I asked her what she takes at bedtime she told me just gabapentin. She denies fall or injury. She denies headache. [facility] Medical History Abrasion Arthritis Back pain Easy bruising Fibromyalgia Graves' disease Luis Enrique's disease Hepatitis History of edema History of pain when walking History of steroid therapy Hoarseness Hx of ovarian cyst Injury of head and neck Post-menopausal Smoker Spine fracture Thyroid disease Wears dentures Wears glasses Home Medications baclofen 20 mg tablet 20 mg PO TID 01/06/15 [History Last Taken Unknown] cholecalciferol (vitamin D3) 25 mcg (1,000 unit) capsule (Vitamin D3) 50 mcg PO DAILY 07/23/21 [History Last Taken Unknown] duloxetine 30 mg capsule,delayed release 30 mg PO DAILY 07/23/21 [History Last Taken Unknown] duloxetine 60 mg capsule,delayed release 60 mg PO DAILY 07/23/21 [History Last Taken Unknown] gabapentin 800 mg tablet 800 mg PO TIDCM 07/23/21 [History Last Taken Unknown] amitriptyline 25 mg tablet 25 - 50 mg PO QHS 02/10/22 [History Last Taken Unknown] methimazole 5 mg tablet 15 mg PO DAILY 02/10/22 [History Last Taken Unknown] albuterol sulfate 90 mcg/actuation aerosol inhaler (Ventolin HFA) 1 - 2 puff in halation Q4H PRN PRN Wheezing #1 ea 05/15/22 [Rx Last Taken Unknown] ascorbic acid (vitamin C) 500 mg PO 1XD 05/15/22 [History Last Taken Unknown] aripiprazole 5 mg tablet (Abilify) 10 mg PO DAILY 03/19/23 [History Last Taken Unknown] biotin 1 mg capsule 1 mg PO BID 03/19/23 [History Last Taken Unknown] fluticasone fur. 100 mcg-umeclid 62.5 mcg-vilant 25 mcg inhalat.powder (Trelegy Ellipta) 1 inh inhalation DAILY 03/19/23 [History Last Taken Unknown] Allergy/AdvReac Type Severity Reaction Status Date / Time levetiracetam [From Keppra] Allergy PANICK Verified 03/19/23 20:40 ATTACKS Penicillins [PCN] Allergy Hives Verified 03/19/23 20:40 pregabalin [From Lyrica] Allergy Other Verified 03/19/23 20:40 zolpidem tartrate Allergy Other Verified 03/19/23 20:40 [From Ambien] Surgical History History of surgery Hx laparoscopic cholecystectomy Hx of tubal ligation Social History Smoking Status: Current every day smoker tobacco type: cigarettes ROS ROS ED Constitutional Constitutional ED: Denies chills or fever(s) Eyes Eyes: Denies change in vision ENT ENT ED: Denies rhinorrhea or sore throat Cardiovascular Cardiovascular: Denies chest pain or palpitations Respiratory/Chest Respiratory/Chest: Denies cough or dyspnea Gastrointestinal Gastrointestinal: Denies abdominal pain, nausea or vomiting Musculoskeletal Musculoskeletal: Denies back pain or extremity pain Integumentary Denies Abrasions or rash Neurologic Neurologic: Reports weakness; Denies headache(s) Allergic/Immunologic Allergic/Immunologic ED: Denies lip swelling or urticaria EXAM Physical Exam Const Vital Signs: 03/19/23 20:41 Temperature 96.6 F L Temperature Source Temporal Pulse Rate 109 H Respiratory Rate 14 Blood Pressure 130/65 H Blood Pressure Mean 86 Pulse Ox 96 Positive well nourished and well developed General Appearance ED: well developed HEENT Reports moist mucous membranes Eyes EOMs intact bilaterally Chest Wall inspection of chest normal and palpation of chest normal Resp normal respiratory effort and clear to auscultation bilaterally Cardio regular rate and regular rhythm GI non-tender Palpation: soft Extremity normal to inspection Neuro Neuro Narrative: Patient alert and answers questions, but will close her eyes and said to fall asleep without stimulation. Psych mental status grossly normal Skin no rashes or lesions noted MDM MDM MDM Narrative Medical decision making narrative: Patient placed on threat monitoring analyst. IV line initiated. Labwork obtained to evaluate for leukocytosis, anemia, and electrolyte derangement. Urinalysis obtained to evaluate for infection/hematuria. EKG obtained to evaluate for cardiac arrhythmia/ischemia. CT scan of the head obtained given her confusion to evaluate for any evidence of injury, edema. History & Record Review Discussion w/independent historian: Patient and Friend Additional record(s) reviewed:: Prior ED visit and Prior labs Lab Data Attestation: I reviewed the patient's lab results. Labs: Laboratory Results - last 24 hr 03/19/23 03/19/23 21:30 21:32 WBC 10.9 RBC 4.44 Hgb 14.1 Hct 41.4 MCV 93.2 MCH 31.8 MCHC 34.1 RDW Std Deviation 47.4 H RDW Coeff of Jaspal 13.8 Plt Count 284 MPV 8.5 Immature Gran % (Auto) 0.300 Neut % (Auto) 71.2 H Lymph % (Auto) 21.7 Lamoure % (Auto) 5.3 Eos % (Auto) 0.9 Baso % (Auto) 0.6 Absolute Neuts (auto) 7.8 H Absolute Lymphs (auto) 2.36 Nucleated RBC % 0 Sodium 142 Potassium 4.5 Chloride 109 H Carbon Dioxide 29.0 Anion Gap 4 L BUN 13 Creatinine 0.67 Estim Creat Clear Calc 75.92 Est GFR (MDRD) Af Amer 117 Est GFR (MDRD) Non-Af 97 BUN/Creatinine Ratio 19.3 Glucose 135 H Calcium 9.7 Urine Color Yellow Urine Clarity Clear Urine pH 5.0 Ur Specific Johnston 1.025 Urine Protein 30 H Urine Glucose (UA) Normal Urine Ketones 15 H Urine Occult Blood 25 H Urine Nitrite Negative Urine Bilirubin 1 H Urine Urobilinogen 1 H Ur Leukocyte Esterase 25 H Urine RBC 0-5 SEEN Urine WBC 0-5 SEEN Ur Squamous Epith Cells 0-5 SEEN Urine Bacteria 0 SEEN Urine Mucus 0 SEEN Urine Opiates Screen POSITIVE H Urine Methadone Screen NEGATIVE Ur Barbiturates Screen NEGATIVE Ur Phencyclidine Scrn NEGATIVE Ur Amphetamines Screen NEGATIVE MDMA (Ecstasy) Screen NEGATIVE U Benzodiazepines Scrn NEGATIVE Urine Cocaine Screen NEGATIVE U Cannabinoids Screen POSITIVE H Ur Drug Screen Comment Ethyl Alcohol < 3.0 EKG Initial EKG: Attestation: I personally reviewed and interpreted this EKG as follows: Interpretation: Sinus Tachycardia (Sinus tachycardia at 104. No acute ischemia.) Treatment and Re-Evaluation :: Nursing staff initially laid the patient down when they got her labs and straight catheter for urine. With the patient was laid down flat she became nauseated and vomiting and said that she felt that everything was spinning. When she would sit upright she felt better. She was given Zofran for nausea. She was unable to tolerate CT scan secondary to needing to lie supine. CBC was normal white count 10.9 with 71% neutrophils. Chemistry studies are unremarkable. Glucose is 135. Urinalysis reveals no evidence of acute infection. EtOH is less than 3. Urine tox screen is positive for opiates and cannabinoids. Patient was yelling in the room and when nursing staff went to check on her she was asking for her mother. The patient asked why she felt ill and nursing staff did mention to her that her tox screen showed drugs. Her response to nursing staff was oh yeah, I did take those. At this time patient be given a dose of Antivert. She will be signed out to oncoming physician for further observation as he feels she would likely be able to be discharged in a couple hours once her drugs metabolize. Discharge Plan Triage Chief Complaint: Confusion ED Provider: Liberty Zuleta Dx/Rx/DC Orders Clinical Impression: Drug ingestion, Confusion, Peripheral vertigo Instructions: ED ALOC, ED BPV Vertigo, ED Drug Abuse Prescriptions: No Action baclofen 20 MG tablet 20 mg PO TID Patient Comments: FIBROMYALGIA gabapentin 800 mg tablet 800 mg PO TIDCM Patient Comments: take 1 tablet by mouth three times a day cholecalciferol (vitamin D3) [Vitamin D3] 25 mcg (1,000 unit) Capsule 50 mcg PO DAILY duloxetine 30 mg capsule,delayed release(DR/EC) 30 mg PO DAILY Patient Comments: take 1 capsule by mouth once daily duloxetine 60 mg capsule,delayed release(DR/EC) 60 mg PO DAILY Patient Comments: take 1 capsule by mouth once daily amitriptyline 25 mg tablet 25 - 50 mg PO QHS Patient Comments: TAKE 1-2 TABLETS BY MOUTH AT BEDTIME methimazole 5 mg tablet 15 mg PO DAILY ascorbic acid (vitamin C) 500 mg PO 1XD albuterol sulfate [Ventolin HFA] 90 mcg/actuation HFA aerosol inhaler 1 - 2 puff inhalation Q4H PRN PRN (Reason: Wheezing) Qty: 1 0RF aripiprazole [Abilify] 5 mg tablet 10 mg PO DAILY Trelegy Ellipta 100-62.5-25 mcg blister with device 1 inh inhalation DAILY biotin 1 mg capsule 1 mg PO BID Primary Care Provider: Jim Panchal Referrals: Jim Panchal MD [Primary Care Provider] - As Needed Disposition Disposition: Home, Self Care
[2023-03-19] MEDS: 0.9% Normal Saline (1000mL) 1,000 ML 150 ML IV (21:32)
[2023-03-19] MEDS: Ondansetron 4 MG/2 ML Vial IV (21:33)
[2023-03-19 21:42] LABS: Bacteria 0 SEEN /hpf (None Seen); Mucous, Urine 0 SEEN /hpf (<or=2+)
[2023-03-19 21:45] LABS: Absolute Lymphocyte Count 2.36 X10^3/uL (0.83-4.51); Absolute Neutrophil Count 7.8 X10^3/uL (2.0-7.7); Basophil# 0.07 X10^3/uL; Basophil% 0.6 % (0-1); Eosinophils% 0.9 % (0-5); Hematocrit 41.4 % (37-47); Hemoglobin 14.1 g/dL (12.0-15.0); Lymphocyte # 2.36 X10^3/ul (0.83-4.51); Lymphocyte % 21.7 % (19-41); Mean Corp Hgb Conc 34.1 g/dL (32-36); Mean Corpuscular Hgb 31.8 pg (27.0-32.0); Mean Corpuscular Volume 93.2 fL (81-99); Mean Platelet Vol. 8.5 fl (6.2-12.0); Monocyte# 0.58 X10^3/uL; Monocyte% 5.3 % (0-10); NRBC Flagged by Analyzer 0 % (0-5); Neutrophil # 7.75 X10^3/uL (2.7-7.7); Neutrophil % 71.2 % (47-70); Platelet Count 284 K/mm3 (150-450); RBC Distribution Width CV 13.8 % (11.6-14.6); RBC Distribution Width SD 47.4 fl (35.1-43.9); Red Blood Count 4.44 M/mm3 (4.2-5.4); White Blood Count 10.9 K/mm3 (4.4-11.0)
[2023-03-19 21:46] LABS: Glucose, Dipstick Normal (Normal); Ketone-Dipstick 15 mg/dl (Negative); Leukocyte Esterase-Dipstick 25 /ul (Negative); Nitrite-Dipstick Negative (Negative); Occult Blood-Urine 25 /ul (Negative); Protein-Dipstick 30 mg/dl (Negative); Specific Gravity, Urine 1.025 (1.002-1.030); Urine Urobilinogen 1 mg/dl (Normal)
[2023-03-19 21:50] LABS: Color, Urine Yellow (Yellow); Urine Bilirubin Dipstick 1 mg/dL (Negative); Urine Clarity Clear (Clear)
[2023-03-19 21:58] LABS: Red Blood Cells-Urine 0-5 SEEN /hpf (0-5); Squamous Epithelial Cells - UA 0-5 SEEN /hpf (5-10); White Blood Cells 0-5 SEEN /hpf (0-5)
[2023-03-19 22:01] LABS: Alcohol, Blood (Medical)-Serum < 3.0 mg/dL
[2023-03-19 22:03] LABS: Anion Gap 4 (5-15); BUN 13 mg/dL (7-18); BUN/Creat Ratio 19.3 RATIO (10-20); Calcium,Total 9.7 mg/dL (8.5-10.1); Chloride 109 mmol/L (98-107); Creatinine, Serum 0.67 mg/dL (0.55-1.02); EST Glomerular Filtration Rate 97 mL/min (>60); Est Glom Filt Rate - Afr Amer 117 mL/min (>60); Estimated Creatinine Clearance 75.92 ml/min; Glucose 135 mg/dL (74-106); Potassium 4.5 mmol/L (3.5-5.1); Sodium Level 142 mmol/L (136-145)
[2023-03-19 22:21] LABS: Amphetamine Urine VISTA NEGATIVE (<1000 ng/mL); Barbiturate Urine VISTA NEGATIVE (< 200 ng/mL); Benzodiazepine Urine VISTA NEGATIVE (< 200 ng/mL); Cocaine Urine VISTA NEGATIVE (< 300 ng/mL); Ecstacy Urine VISTA NEGATIVE (< 500 ng/mL); Methadone Urine VISTA NEGATIVE (< 300 ng/mL); PCP Urine VISTA NEGATIVE (< 25 ng/mL); THC Urine VISTA POSITIVE (< 50 ng/mL); Vista UDS pH Range 5
[2023-03-20] MEDS: Meclizine HCl 25 MG Tablet PO (01:25)
--- NOTE | 2023-03-20 03:15 | CT_ITS ---
EXAM: CT HEAD WITHOUT INTRAVENOUS CONTRAST CLINICAL INDICATION: confusion TECHNIQUE: Multiple axial images were obtained of the head without intravenous contrast. This CT exam was performed using one or more of the following dose reduction techniques: automated exposure control, adjustment of the mA and/or kV according to patient size, and/or use of iterative reconstruction technique. RADIATION DOSE: CTDIvol = 44.99 mGy, DLP = 846.73 mGy-cm COMPARISON: Head CT 04/14/2022 FINDINGS: BRAIN AND EXTRA-AXIAL SPACES: Unremarkable. No intra- or extra-axial hemorrhage. No evidence of acute infarct. No intracranial mass or mass effect. There is preservation of the guerra/white matter interface. Posterior fossa structures are unremarkable. Ventricles are appropriate for age. No hydrocephalus. Basal cisterns are patent. BONES/JOINTS: Unremarkable. No discrete lytic or blastic abnormalities. SINUSES: Unremarkable as visualized. Clear. MASTOID AIR CELLS: Unremarkable. Clear. ORBITS: Visualized globes, extraocular muscles, optic nerves and retrobulbar fat appear unremarkable. CT/Brain/Head without Contrast IMPRESSION: Negative head/brain CT without intravenous contrast. Electronically Signed: Marcin Vera MD at 3:29 EST ,
--- NOTE | 2023-03-20 05:42 | ED.RN ---
Friend Danii Kaur [phone] - call for ride.
--- NOTE | 2023-03-20 05:43 | ED.RN ---
Call friend Danii Kaur for ride - [phone].
[2023-03-20 06:32] VITALS: BP 106/62
[2023-03-20 06:34] VITALS: BP 106/62
== END 2023-03-20 06:34 | disposition home or self-care (01) ==
PROVIDERS: Emergency Provider Emergency Medicine; PCP Family Medicine; Visit Provider Emergency Medicine
DX: R41.0 Disorientation, unspecified (principal); R42 Dizziness and giddiness; F17.210 Nicotine dependence, cigarettes, uncomplicated; Z79.899 Other long term (current) drug therapy
CPT/HCPCS: 70450; 80048; 80307; 80320; 81001; 85025; 93005; 96374; 99284; J7030; A4216; G0480; J2405

== ENCOUNTER → 2023-03-28 | Outpatient (CLI) | payer MEDICARE, MEDICAID, SELFPAY ==
--- NOTE | 2023-03-28 10:22 | MRI_ITS ---
STUDY: MRI ORBITS WITH AND WITHOUT CONTRAST REASON FOR EXAM: Female, 52 years old. EXOPTHALMOS,GRAVES DISEASE,GRAVES OPHTHALMOPATHY TECHNIQUE: Standardized fat and water weighted pulse sequences were obtained in all 3 orthogonal planes, pre-and post contrast administration. IV 11ml clariscan was administered for the contrast portion of the examination. COMPARISON: Head CT dated March 20, 2023 FINDINGS: Mild bilateral proptosis is present. There is also mild to moderate diffuse enlargement of the bilateral cortices right greater than left) inferior and medial rectus muscles mild edema is also present in the enveloping sheath and peripheral fibers of the right inferior rectus muscle. There is no abnormal enhancing abnormality of the bilateral orbital contents. Normal bilateral globes. Normal bilateral optic nerve sheath complexes and optic nerves. Normal bilateral intraconal and extraconal spaces. Normal remaining bilateral extraocular muscles. Normal optic chiasm and post-chiasmatic tracts. Normal sella turcica, pituitary gland, infundibular stalk, and hypothalamus. Normal bilateral cavernous sinuses. Normal tectal plate and pineal gland. 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 Mild bilateral proptosis is present. There is also mild to moderate diffuse enlargement of the bilateral cortices right greater than left) inferior and medial rectus muscles mild edema is also present in the enveloping sheath and peripheral fibers of the right inferior rectus muscle. There is no abnormal enhancing abnormality of the bilateral orbital contents. STUDY: MRI BRAIN WITH AND WITHOUT CONTRAST REASON FOR EXAM: Female, 52 years old. EXOPTHALMOS,GRAVES DISEASE,GRAVES OPHTHALMOPATHY TECHNIQUE: Standardized multiplanar fat and water weighted pulse sequences were obtained. IV 11ml clariscan was administered for the contrast portion of the examination. COMPARISON: None. FINDINGS: Normal size of the ventricles and extra-axial spaces for the patient''s age. Normal white matter tracts of the supratentorial brain. There is no evidence for recent intracranial ischemia or other cause of cytotoxic edema on diffusion weighted imaging (DWI). There are no demyelinating plagues of the supratentorial brain, brainstem or cerebellum. There are no findings suspicious for multiple sclerosis (MS). Normal T2* images of the brain without demonstrated susceptibility artifact. There is no demonstrated hemosiderin stain. Normal bilateral basal ganglia. Normal thalami. There is no extra-axial fluid accumulation. Normal flow voids within the major intracranial circulation suggesting patency by spin echo criteria. Normal venous enhancement. There is no enhancing intra-axial or extra-axial abnormality. Normal sella turcica, pituitary gland, infundibular stalk, optic chiasm and hypothalamus. Normal tectal plate and pineal gland. Normal midbrain, lakshmi and medulla. Normal cerebellum. Normal basal cisterns. Normal bilateral temporal bones. Normal bilateral internal auditory canals. Normal visualized paranasal sinuses. Normal calvarium and skull base. Normal visualized soft tissue structures. Normal visualized upper cervical spine. MRI/Orbit Face Neck W/WO Contrast IMPRESSION: Normal unenhanced and enhanced MRI of the brain. Electronically Signed: Jose Jaime MD at 11:57 EST ,
== END | disposition home or self-care (01) ==
LOC: MRI 10:08
PROVIDERS: PCP Family Medicine; Referring Provider Internal Medicine Endocrinology, Diabetes & Metabolism; Visit Provider Internal Medicine Endocrinology, Diabetes & Metabolism
DX: E05.00 Thyrotoxicosis with diffuse goiter without thyrotoxic crisis or storm (principal)
CPT/HCPCS: 70543; A9575

== ENCOUNTER → 2023-04-07 | Outpatient (CLI) | payer MEDICARE, MEDICAID, SELFPAY ==
--- NOTE | 2023-04-07 09:24 | RAD_ITS ---
INDICATION: pain in thoracic spine EXAMINATION/TECHNIQUE: X-RAY - XR Spine Thoracic 2 Views COMPARISON: Prior study dated: 10/07/2020 FINDINGS: VERTEBRAE: Preserved vertebral body height. No fracture. No spondylolisthesis. Mild increased kyphosis. No substantial scoliosis. DISCS: Disc spaces are maintained. Neurostimulator leads are again seen overlying the mid and lower thoracic spine INCLUDED CHEST/ABDOMEN: No acute abnormalities. RAD/Thoracic Spine 2 Views IMPRESSION: No demonstrated acute changes. Electronically Signed: Jakub Bauer MD at 8:46 EST ,
== END | disposition home or self-care (01) ==
LOC: MTRAD 09:20
PROVIDERS: PCP Family Medicine; Referring Provider Family Medicine; Visit Provider Family Medicine
DX: M54.6 Pain in thoracic spine (principal)
CPT/HCPCS: 72070

== ENCOUNTER → 2023-04-19 | Outpatient (CLI) | payer MEDICARE, MEDICAID, SELFPAY | END | disposition home or self-care (01) | LOC: PSN 08:08 | PROVIDERS: PCP Family Medicine; Referring Provider Family Medicine; Visit Provider Family Medicine | DX: J44.9 Chronic obstructive pulmonary disease, unspecified (principal) | CPT/HCPCS: 94060; 94726; 94729 ==

== ENCOUNTER → 2023-04-22 | Outpatient (CLI) | payer MEDICARE, MEDICAID, SELFPAY ==
[2023-04-22 10:26] LABS: Erythrocyte Sedimentation Rate 2 mm/hr (0-30)
[2023-04-22 10:29] LABS: Hematocrit 41.7 % (37-47); Hemoglobin 13.5 g/dL (12.0-15.0); Mean Corp Hgb Conc 32.4 g/dL (32-36); Mean Corpuscular Hgb 31.5 pg (27.0-32.0); Mean Corpuscular Volume 97.4 fL (81-99); Mean Platelet Vol. 8.9 fl (6.2-12.0); Platelet Count 280 K/mm3 (150-450); RBC Distribution Width CV 13.2 % (11.6-14.6); RBC Distribution Width SD 47.3 fl (35.1-43.9); Red Blood Count 4.28 M/mm3 (4.2-5.4); White Blood Count 8.7 K/mm3 (4.4-11.0)
[2023-04-22 11:29] LABS: ALB/GLOB Ratio 1.3 RATIO (0.9-2.4); AST(SGOT) 13 U/L (15-37); Alanine Aminotransfer ALT/SGPT 20 U/L (13-56); Albumin, Serum 3.8 g/dL (3.2-5.0); Alkaline Phosphatase 106 U/L (45-117); Anion Gap 5 (5-15); BUN 8 mg/dL (7-18); BUN/Creat Ratio 10.1 RATIO (10-20); Calcium,Total 8.7 mg/dL (8.5-10.1); Chloride 104 mmol/L (98-107); Creatinine, Serum 0.79 mg/dL (0.55-1.02); EST Glomerular Filtration Rate 81 mL/min (>60); Est Glom Filt Rate - Afr Amer 98 mL/min (>60); Free T3 3.2 pg/mL (2.18-3.98); Glucose 72 mg/dL (74-106); Potassium 3.9 mmol/L (3.5-5.1); Protein, Total 6.8 g/dL (6.4-8.2); Sodium Level 139 mmol/L (136-145); T4 Free Direct 0.73 ng/dL (0.76-1.46); Thyroid Stim Hormone (TSH) < 0.01 uIU/mL (0.358-3.74)
== END | disposition home or self-care (01) ==
LOC: MTLAB 09:26
PROVIDERS: PCP Family Medicine; Referring Provider Internal Medicine Endocrinology, Diabetes & Metabolism; Visit Provider Internal Medicine Endocrinology, Diabetes & Metabolism
DX: E05.00 Thyrotoxicosis with diffuse goiter without thyrotoxic crisis or storm (principal); E55.9 Vitamin D deficiency, unspecified; R76.8 Other specified abnormal immunological findings in serum
CPT/HCPCS: 36415; 80053; 84439; 84443; 84481; 85027; 85652

== ENCOUNTER → 2023-05-03 | Outpatient (CLI) | payer MEDICARE, MEDICAID, SELFPAY ==
--- NOTE | 2023-05-03 11:00 | STRESSREP ---
Stress Test Report Date: 05/03/2023 Procedure: Pharmacologic stress nuclear imaging study Indications: Dyspnea Consent: Per the patient Procedure: The patient underwent pharmacologic (Regadenoson 0.4mg ) evaluation with a peak heart rate of 105 beats per minute (63%predicted maximal heart rate) and a peak blood pressure of 112/60 mmHg. The baseline ECG demonstrated sinus rhythm. The peak pharmacologic ECG demonstrated no ischemic changes. There were no cardiac dysrhythmias pretest, during pharmacologic infusion, or recovery. There was no complaint of chest discomfort during pharmacologic infusion or recovery. The patient was injected with 11.6 millicuries of technetium 99m Cardiolite and subsequently rest SPECT Cardiolite nuclear imaging was obtained in the horizontal long, vertical long, and short axis views. The patient underwent pharmacologic (Regadenoson) evaluation. The patient was injected with 33.8 millicuries of technetium 99m Cardiolite and subsequently stress SPECT Cardiolite nuclear imaging was obtained in the horizontal long, vertical long, and short axis views. A gated Cardiolite study at peak stress was obtained. The examination was stopped secondary to completion of protocol. Rest and stress SPECT Cardiolite nuclear imaging status post realignment, normalization, and attenuation correction demonstrate no fixed or reversible perfusion defects. There is end systolic thickening and brightening. The gated Cardiolite study demonstrates myocardial thickening and inward wall motion. The reported LVEF is 79%. Impression: 1. Pharmacologic (Regadenoson) evaluation 2. Peak pharmacologic ECG with no ischemic changes. 3. There were no cardiac dysrhythmias pretest, during pharmacologic infusion, or recovery. 5. Rest and stress SPECT Cardiolite nuclear imaging demonstrate relative uniform tracer uptake and myocardial perfusion appearing within normal limits. 6. The gated Cardiolite study reports an LVEF of 79%. This note was generated with [employer]ation software. It may contain incorrect words, spelling, and punctuation that were not noted in checking the note before signing.
== END | disposition home or self-care (01) ==
LOC: CVS 06:25
PROVIDERS: PCP Family Medicine; Referring Provider Family Medicine; Visit Provider Family Medicine
DX: R06.09 Other forms of dyspnea (principal)
CPT/HCPCS: 78452; 93017; A9500; A4216; J2785

== ENCOUNTER → 2023-06-07 | Outpatient (CLI) | payer MEDICARE, MEDICAID, SELFPAY ==
[2023-06-07 09:53] LABS: Hematocrit 43.6 % (37-47); Mean Corp Hgb Conc 32.1 g/dL (32-36); Mean Corpuscular Hgb 31.5 pg (27.0-32.0); Mean Corpuscular Volume 98.2 fL (81-99); Mean Platelet Vol. 8.1 fl (6.2-12.0); Platelet Count 313 K/mm3 (150-450); RBC Distribution Width CV 13.9 % (11.6-14.6); RBC Distribution Width SD 50.9 fl (35.1-43.9); Red Blood Count 4.44 M/mm3 (4.2-5.4); White Blood Count 8.4 K/mm3 (4.4-11.0)
[2023-06-07 14:41] LABS: ALB/GLOB Ratio 1.3 RATIO (0.9-2.4); AST(SGOT) 17 U/L (15-37); Alanine Aminotransfer ALT/SGPT 16 U/L (13-56); Albumin, Serum 4.2 g/dL (3.2-5.0); Alkaline Phosphatase 91 U/L (45-117); Anion Gap 5 (5-15); BUN 9 mg/dL (7-18); BUN/Creat Ratio 11.2 RATIO (10-20); Chloride 103 mmol/L (98-107); EST Glomerular Filtration Rate 79 mL/min (>60); Est Glom Filt Rate - Afr Amer 95 mL/min (>60); Free T3 1.4 pg/mL (2.18-3.98); Globulin 3.3 g/dL (2.2-4.2); Glucose 101 mg/dL (74-106); Potassium 3.9 mmol/L (3.5-5.1); Protein, Total 7.5 g/dL (6.4-8.2); Sodium Level 138 mmol/L (136-145)
== END | disposition home or self-care (01) ==
LOC: MTLAB 09:08
PROVIDERS: PCP Family Medicine; Referring Provider Internal Medicine Endocrinology, Diabetes & Metabolism; Visit Provider Internal Medicine Endocrinology, Diabetes & Metabolism
DX: E05.00 Thyrotoxicosis with diffuse goiter without thyrotoxic crisis or storm (principal); R76.8 Other specified abnormal immunological findings in serum; E55.9 Vitamin D deficiency, unspecified
CPT/HCPCS: 36415; 80053; 84439; 84443; 84445; 84481; 85027

== ENCOUNTER → 2023-06-21 | Outpatient (CLI) | payer MEDICARE, MEDICAID, SELFPAY ==
[2023-06-21 11:13] LABS: Free T3 8.3 pg/mL (2.18-3.98); T4 Free Direct 1.38 ng/dL (0.76-1.46)
== END | disposition home or self-care (01) ==
PROVIDERS: PCP Family Medicine; Referring Provider Internal Medicine Endocrinology, Diabetes & Metabolism; Visit Provider Internal Medicine Endocrinology, Diabetes & Metabolism
DX: E05.90 Thyrotoxicosis, unspecified without thyrotoxic crisis or storm (principal)
CPT/HCPCS: 36415; 84439; 84481

== ENCOUNTER → 2023-07-19 | Outpatient (CLI) | payer MEDICARE, MEDICAID, SELFPAY ==
[2023-07-19 10:48] LABS: Free T3 4.4 pg/mL (2.18-3.98); T4 Free Direct 1.05 ng/dL (0.76-1.46); Thyroid Stim Hormone (TSH) 0.01 uIU/mL (0.358-3.74)
== END | disposition home or self-care (01) ==
LOC: MTLAB 08:59
PROVIDERS: PCP Family Medicine; Referring Provider Internal Medicine Endocrinology, Diabetes & Metabolism; Visit Provider Internal Medicine Endocrinology, Diabetes & Metabolism
DX: E05.00 Thyrotoxicosis with diffuse goiter without thyrotoxic crisis or storm (principal); E55.9 Vitamin D deficiency, unspecified; R76.8 Other specified abnormal immunological findings in serum
CPT/HCPCS: 36415; 84439; 84443; 84481

== ENCOUNTER → 2023-09-05 | Outpatient (CLI) | payer MEDICARE, MEDICAID, SELFPAY ==
[2023-09-05 12:39] LABS: Hematocrit 43.9 % (37-47); Hemoglobin 14.1 g/dL (12.0-15.0); Mean Corp Hgb Conc 32.1 g/dL (32-36); Mean Corpuscular Hgb 31.5 pg (27.0-32.0); Mean Platelet Vol. 8.6 fl (6.2-12.0); Platelet Count 263 K/mm3 (150-450); RBC Distribution Width CV 12.5 % (11.6-14.6); RBC Distribution Width SD 44.8 fl (35.1-43.9); Red Blood Count 4.48 M/mm3 (4.2-5.4); White Blood Count 6.7 K/mm3 (4.4-11.0)
[2023-09-05 12:43] LABS: ALB/GLOB Ratio 1.1 RATIO (0.9-2.4); AST(SGOT) 13 U/L (15-37); Alanine Aminotransfer ALT/SGPT 13 U/L (13-56); Alkaline Phosphatase 60 U/L (45-117); Anion Gap 8 (5-15); BUN 10 mg/dL (7-18); BUN/Creat Ratio 11.7 RATIO (10-20); Calcium,Total 8.9 mg/dL (8.5-10.1); Chloride 103 mmol/L (98-107); Creatinine, Serum 0.85 mg/dL (0.55-1.02); EST Glomerular Filtration Rate 74 mL/min (>60); Est Glom Filt Rate - Afr Amer 89 mL/min (>60); Free T3 1.8 pg/mL (2.18-3.98); Globulin 3.5 g/dL (2.2-4.2); Glucose 123 mg/dL (74-106); Potassium 5.2 mmol/L (3.5-5.1); Protein, Total 7.5 g/dL (6.4-8.2); Sodium Level 139 mmol/L (136-145); Thyroid Stim Hormone (TSH) 1.45 uIU/mL (0.358-3.74)
== END | disposition home or self-care (01) ==
PROVIDERS: PCP Family Medicine; Referring Provider Internal Medicine Endocrinology, Diabetes & Metabolism; Visit Provider Internal Medicine Endocrinology, Diabetes & Metabolism
DX: E05.00 Thyrotoxicosis with diffuse goiter without thyrotoxic crisis or storm (principal); R76.8 Other specified abnormal immunological findings in serum; E55.9 Vitamin D deficiency, unspecified
CPT/HCPCS: 36415; 80053; 84439; 84443; 84481; 85027

== ENCOUNTER → 2023-10-26 | Outpatient (CLI) | payer MEDICARE, MEDICAID, SELFPAY ==
[2023-10-26 10:16] LABS: Hematocrit 42.5 % (37-47); Mean Corp Hgb Conc 32.9 g/dL (32-36); Mean Corpuscular Hgb 32.6 pg (27.0-32.0); Mean Corpuscular Volume 98.8 fL (81-99); Platelet Count 281 K/mm3 (150-450); RBC Distribution Width CV 14.8 % (11.6-14.6); RBC Distribution Width SD 54.3 fl (35.1-43.9); White Blood Count 8.5 K/mm3 (4.4-11.0)
[2023-10-26 12:12] LABS: ALB/GLOB Ratio 1.2 RATIO (0.9-2.4); AST(SGOT) 7 U/L (15-37); Alanine Aminotransfer ALT/SGPT 14 U/L (13-56); Albumin, Serum 4.1 g/dL (3.2-5.0); Alkaline Phosphatase 68 U/L (45-117); Anion Gap 7 (5-15); BUN 7 mg/dL (7-18); Calcium,Total 9.3 mg/dL (8.5-10.1); Chloride 104 mmol/L (98-107); Creatinine, Serum 0.78 mg/dL (0.55-1.02); EST Glomerular Filtration Rate 81 mL/min (>60); Est Glom Filt Rate - Afr Amer 98 mL/min (>60); Free T3 1.7 pg/mL (2.18-3.98); Globulin 3.5 g/dL (2.2-4.2); Glucose 90 mg/dL (74-106); Potassium 3.9 mmol/L (3.5-5.1); Protein, Total 7.6 g/dL (6.4-8.2); Sodium Level 138 mmol/L (136-145); T4 Free Direct 0.61 ng/dL (0.76-1.46)
== END | disposition home or self-care (01) ==
PROVIDERS: PCP Family Medicine; Referring Provider Family Medicine; Visit Provider Family Medicine
DX: E05.00 Thyrotoxicosis with diffuse goiter without thyrotoxic crisis or storm (principal); R76.8 Other specified abnormal immunological findings in serum; E55.9 Vitamin D deficiency, unspecified
CPT/HCPCS: 36415; 80053; 84439; 84443; 84481; 85027

== ENCOUNTER → 2024-01-04 | Outpatient (CLI) | payer MEDICARE, MEDICAID, SELFPAY ==
[2024-01-04 12:07] LABS: Hematocrit 44.6 % (37-47); Hemoglobin 14.5 g/dL (12.0-15.0); Mean Corp Hgb Conc 32.5 g/dL (32-36); Mean Corpuscular Hgb 32.7 pg (27.0-32.0); Mean Corpuscular Volume 100.7 fL (81-99); Mean Platelet Vol. 8.4 fl (6.2-12.0); Platelet Count 312 K/mm3 (150-450); RBC Distribution Width CV 12.9 % (11.6-14.6); Red Blood Count 4.43 M/mm3 (4.2-5.4); White Blood Count 7.8 K/mm3 (4.4-11.0)
[2024-01-04 13:07] LABS: ALB/GLOB Ratio 1.2 RATIO (0.9-2.4); AST(SGOT) 10 U/L (15-37); Alanine Aminotransfer ALT/SGPT 15 U/L (13-56); Albumin, Serum 4.1 g/dL (3.2-5.0); Alkaline Phosphatase 69 U/L (45-117); Anion Gap 9 (5-15); BUN 6 mg/dL (7-18); BUN/Creat Ratio 7.5 RATIO (10-20); Calcium,Total 8.9 mg/dL (8.5-10.1); Chloride 103 mmol/L (98-107); EST Glomerular Filtration Rate 79 mL/min (>60); Est Glom Filt Rate - Afr Amer 96 mL/min (>60); Free T3 2.1 pg/mL (2.18-3.98); Globulin 3.4 g/dL (2.2-4.2); Glucose 91 mg/dL (74-106); Potassium 3.8 mmol/L (3.5-5.1); Protein, Total 7.5 g/dL (6.4-8.2); Sodium Level 136 mmol/L (136-145); T4 Free Direct 0.66 ng/dL (0.76-1.46)
[2024-01-07 08:13] LABS: Thyroid Stim Immunoglob 4.17 IU/L (0.00-0.55)
== END | disposition home or self-care (01) ==
PROVIDERS: PCP Family Medicine; Referring Provider Internal Medicine Endocrinology, Diabetes & Metabolism; Visit Provider Internal Medicine Endocrinology, Diabetes & Metabolism
DX: E05.00 Thyrotoxicosis with diffuse goiter without thyrotoxic crisis or storm (principal); R76.8 Other specified abnormal immunological findings in serum; E55.9 Vitamin D deficiency, unspecified
CPT/HCPCS: 36415; 80053; 84439; 84443; 84445; 84481; 85027

== ENCOUNTER → 2024-03-20 | Outpatient (CLI) | payer MEDICARE, MEDICAID, SELFPAY ==
[2024-03-20 12:34] LABS: Hematocrit 41.2 % (37-47); Hemoglobin 13.4 g/dL (12.0-15.0); Mean Corp Hgb Conc 32.5 g/dL (32-36); Mean Corpuscular Hgb 32.6 pg (27.0-32.0); Mean Corpuscular Volume 100.2 fL (81-99); Mean Platelet Vol. 8.2 fl (6.2-12.0); Platelet Count 333 K/mm3 (150-450); RBC Distribution Width SD 51.8 fl (35.1-43.9); Red Blood Count 4.11 M/mm3 (4.2-5.4); White Blood Count 8.4 K/mm3 (4.4-11.0)
[2024-03-20 13:28] LABS: ALB/GLOB Ratio 1.1 RATIO (0.9-2.4); AST(SGOT) 10 U/L (15-37); Alanine Aminotransfer ALT/SGPT 13 U/L (13-56); Alkaline Phosphatase 71 U/L (45-117); Anion Gap 8 (5-15); BUN 8 mg/dL (7-18); BUN/Creat Ratio 9.2 RATIO (10-20); Calcium,Total 9.2 mg/dL (8.5-10.1); Chloride 102 mmol/L (98-107); Creatinine, Serum 0.87 mg/dL (0.55-1.02); EST Glomerular Filtration Rate 71 mL/min (>60); Est Glom Filt Rate - Afr Amer 86 mL/min (>60); Ferritin 27 ng/mL (8-252); Free T3 2.3 pg/mL (2.18-3.98); Globulin 3.6 g/dL (2.2-4.2); Glucose 84 mg/dL (74-106); Iron 68 ug/dL (50-170); Protein, Total 7.6 g/dL (6.4-8.2); Rheumatoid Factor < 10.0 IU/mL (<15); Sodium Level 139 mmol/L (136-145); T4 Free Direct 0.68 ng/dL (0.76-1.46)
[2024-03-22 07:08] LABS: Thyroid Peroxidase AB 499 IU/mL (0-34); Thyroid Stim Immunoglob 4.55 IU/L (0.00-0.55)
[2024-03-22 11:07] LABS: Anti-Nuclear Antibody Test Negative (.)
== END | disposition home or self-care (01) ==
LOC: MTLAB 10:13
PROVIDERS: PCP Family Medicine; Referring Provider Internal Medicine Endocrinology, Diabetes & Metabolism; Visit Provider Internal Medicine Endocrinology, Diabetes & Metabolism
DX: E05.00 Thyrotoxicosis with diffuse goiter without thyrotoxic crisis or storm (principal); R76.8 Other specified abnormal immunological findings in serum; E55.9 Vitamin D deficiency, unspecified
CPT/HCPCS: 36415; 80053; 82728; 83540; 84439; 84443; 84445; 84481; 85027; 86038; 86376; 86431

== ENCOUNTER → 2024-05-21 | Outpatient (CLI) | payer MEDICARE, MEDICAID, SELFPAY ==
[2024-05-21 23:38] LABS: Cholesterol 203 mg/dL (<=200); Free T3 4.1 pg/mL (2.18-3.98); High Density Lipoprotein 61 mg/dL; Low Density Lipoprotein Calc. 120 mg/dL; Thyroid Stim Hormone (TSH) 0.136 uIU/mL (0.300-4.200); Triglycerides 111 mg/dL; Very Low Density Lipoprotein 22 mg/dL (5-40); Vitamin B12 524 pg/mL (180-914); cholesterol:hdl ratio screen 3.34
[2024-05-21 23:42] LABS: ALB/GLOB Ratio 1.7 RATIO (0.9-2.4); AST(SGOT) 21 U/L (<=31); Alanine Aminotransfer ALT/SGPT 10 U/L (<=34); Albumin, Serum 4.8 g/dL (3.5-5.0); Alkaline Phosphatase 59 U/L (35-104); Anion Gap 12 (5-15); BUN 5 mg/dL (4-19); BUN/Creat Ratio 6.4 RATIO (10-20); Calcium,Total 9.5 mg/dL (7.6-11.0); Carbon Dioxide 24.5 mmol/L (21.0-32.0); Chloride 102 mmol/L (98-108); Creatinine, Serum 0.78 mg/dL (0.70-1.20); EST Glomerular Filtration Rate 89 (>60); Globulin 2.8 g/dL (2.2-4.2); Glucose 86 mg/dL (70-99); Potassium 4.2 mmol/L (3.3-5.1); Protein, Total 7.6 g/dL (5.9-8.4); Sodium Level 139 mmol/L (133-145); Total Bilirubin 0.25 mg/dL (0.00-1.30)
[2024-05-22 02:07] LABS: Insulin Level 13.6 uIU/mL (2.6-24.9)
[2024-05-22 22:30] LABS: Hemoglobin A1c 4.9 % (<=5.6)
== END | disposition home or self-care (01) ==
LOC: MTLAB 09:53
PROVIDERS: PCP Family Medicine; Referring Provider Internal Medicine Endocrinology, Diabetes & Metabolism; Visit Provider Internal Medicine Endocrinology, Diabetes & Metabolism
DX: E05.00 Thyrotoxicosis with diffuse goiter without thyrotoxic crisis or storm (principal); R76.8 Other specified abnormal immunological findings in serum; E55.9 Vitamin D deficiency, unspecified; D75.89 Other specified diseases of blood and blood-forming organs
CPT/HCPCS: 36415; 80053; 80061; 82306; 82607; 82746; 83036; 83525; 84439; 84443; 84481

== ENCOUNTER 2024-09-01 11:47 | Emergency (ER) | payer MEDICARE, MEDICAID, SELFPAY ==
[2024-09-01 11:47] VITALS: BP 136/76; PULSE 105; RESP 16; TEMP 36.8; O2SAT 99; BMI 24.7
[2024-09-01] MEDS: 0.9% Normal Saline (1000mL) 1,000 ML 999 ML IV (13:08)
[2024-09-01 13:17] VITALS: BP 117/61; BP 119/71; BP 126/76; PULSE 100; PULSE 107
[2024-09-01 13:20] LABS: Hematocrit 40.8 % (37-47); Hemoglobin 14.0 g/dL (12.0-15.0); Immature Granulocytes Count 0.050 X10^3/uL (0.0-0.0); Mean Corp Hgb Conc 34.3 g/dL (32-36); Mean Corpuscular Volume 96.7 fL (81-99); Mean Platelet Vol. 8.2 fl (6.2-12.0); NRBC Flagged by Analyzer 0 % (0-5); Platelet Count 327 K/mm3 (150-450); RBC Distribution Width CV 13.3 % (11.6-14.6); RBC Distribution Width SD 47.8 fl (35.1-43.9); Red Blood Count 4.22 M/mm3 (4.2-5.4); White Blood Count 11.5 K/mm3 (4.4-11.0)
[2024-09-01] MEDS: Pantoprazole Sodium 40 MG in 0.9% Normal Saline (100mL MB+) 100 ML 300 MG IV (13:23)
[2024-09-01 13:47] VITALS: BP 116/55; O2SAT 98
[2024-09-01 14:01] LABS: Lipase 19 U/L (13-75)
[2024-09-01 14:04] LABS: AST(SGOT) 23 U/L (<=31); Alanine Aminotransfer ALT/SGPT 9 U/L (<=34); Albumin, Serum 4.4 g/dL (3.5-5.0); Alkaline Phosphatase 89 U/L (35-104); Anion Gap 14 (5-15); BUN 7 mg/dL (4-19); BUN/Creat Ratio 10.4 RATIO (10-20); Calcium,Total 9.3 mg/dL (7.6-11.0); Carbon Dioxide 22.2 mmol/L (21.0-32.0); Chloride 103 mmol/L (98-108); Estimated Creatinine Clearance 79.34 ml/min (50-250); Globulin 3.1 g/dL (2.2-4.2); Glucose 90 mg/dL (70-99); Potassium 4.2 mmol/L (3.3-5.1)
[2024-09-01 14:14] VITALS: BP 116/55; PULSE 95; RESP 16; TEMP 36.8; O2SAT 98
[2024-09-01 15:00] VITALS: BP 115/68; PULSE 59; O2SAT 97
== END 2024-09-01 16:52 | disposition home or self-care (01) ==
PROVIDERS: Emergency Provider Emergency Medicine; PCP Family Medicine; Visit Provider Emergency Medicine
DX: K62.5 Hemorrhage of anus and rectum (principal); R19.7 Diarrhea, unspecified; R00.0 Tachycardia, unspecified; R10.84 Generalized abdominal pain; M79.7 Fibromyalgia; G89.29 Other chronic pain; K21.9 Gastro-esophageal reflux disease without esophagitis; M54.50 Low back pain, unspecified; F17.210 Nicotine dependence, cigarettes, uncomplicated; Z90.49 Acquired absence of other specified parts of digestive tract; Z79.890 Hormone replacement therapy; Z79.899 Other long term (current) drug therapy
CPT/HCPCS: 80053; 82274; 83690; 85025; 86850; 86900; 86901; 93005; 96365; 99284; A4216

== ENCOUNTER → 2024-09-10 | Outpatient (CLI) | payer MEDICARE, MEDICAID, SELFPAY ==
[2024-09-10 12:32] LABS: Hematocrit 41.3 % (37-47); Hemoglobin 13.9 g/dL (12.0-15.0); Immature Granulocytes Count 0.020 X10^3/uL (0.0-0.0); Mean Corp Hgb Conc 33.7 g/dL (32-36); Mean Corpuscular Volume 98.8 fL (81-99); Mean Platelet Vol. 8.2 fl (6.2-12.0); NRBC Flagged by Analyzer 0 % (0-5); Platelet Count 386 K/mm3 (150-450); RBC Distribution Width CV 13.4 % (11.6-14.6); RBC Distribution Width SD 49.3 fl (35.1-43.9); Red Blood Count 4.18 M/mm3 (4.2-5.4); White Blood Count 8.9 K/mm3 (4.4-11.0)
[2024-09-10 13:18] LABS: AST(SGOT) 23 U/L (<=31); Alanine Aminotransfer ALT/SGPT 14 U/L (<=34); Albumin, Serum 4.4 g/dL (3.5-5.0); Alkaline Phosphatase 81 U/L (35-104); Anion Gap 13 (5-15); BUN 6 mg/dL (4-19); BUN/Creat Ratio 8.8 RATIO (10-20); Calcium,Total 9.4 mg/dL (7.6-11.0); Carbon Dioxide 25.5 mmol/L (21.0-32.0); Chloride 104 mmol/L (98-108); Free T3 3.5 pg/mL (2.18-3.98); Globulin 2.9 g/dL (2.2-4.2); Glucose 89 mg/dL (70-99); Potassium 3.9 mmol/L (3.3-5.1)
== END | disposition home or self-care (01) ==
LOC: MTLAB 10:10
PROVIDERS: PCP Family Medicine; Referring Provider Student in an Organized Health Care Education/Training Program; Visit Provider Student in an Organized Health Care Education/Training Program
DX: E05.00 Thyrotoxicosis with diffuse goiter without thyrotoxic crisis or storm (principal); R76.8 Other specified abnormal immunological findings in serum; E55.9 Vitamin D deficiency, unspecified; D75.89 Other specified diseases of blood and blood-forming organs
CPT/HCPCS: 36415; 80053; 84439; 84443; 84481; 85025

== ENCOUNTER 2024-10-23 11:19 | Day surgery (SDC) | payer MEDICARE, MEDICAID, SELFPAY ==
--- NOTE | 2024-10-19 11:33 | PAT.ANESEVAL ---
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 When Was Last Pacemaker Check QUESTION #4 FULL TEXT: You/Your Family Experience fever (hyperthermia) with Anesthesia Last Oral Intake Last Oral intake: Last Oral Intake NPO since Meds taken in AM with sips of water? Meds patient instructed to take am of surgery PONV PONV - launching pad mechanic: PONV - launching pad mechanic Female Yes 10/19/24 11:10 HX of Motion Sickness No 10/19/24 11:10 HX of N/V After Surgery No 10/19/24 11:10 Non-Smoker No 10/19/24 11:10 Duration of Surgery greater No 10/19/24 11:10 than 60 minutes Number of Risk Factors 1 10/19/24 11:10 PONV Score Low Risk 10/19/24 11:10 Height & Weight Height & Weight: Anesthesia: Height & Weight Height 5 ft 2 in 09/01/24 11:47 Respiratory Assessment Respiratory Assessment - launching pad mechanic: Respiratory Tract Infection Hx - launching pad mechanic Hx Respiratory Tract Infection No 10/19/24 11:10 STOP Sleep Apnea STOP Sleep Apnea - launching pad mechanic: STOP Sleep Apnea - launching pad mechanic Hx Hypertension No 10/19/24 11:10 Hx Sleep Apnea No 10/19/24 11:10 CPAP No 11/12/22 15:26 BIPAP No 11/11/22 16:31 Do you snore loudly (louder No 10/19/24 11:10 than talking or can be heard Do you often feel tired/ No 10/19/24 11:10 fatigued/ sleepy during daytime? Has anyone observed you stop No 10/19/24 11:10 breathing during sleep? STOP Results Negative 10/19/24 11:10 QUESTION #5 FULL TEXT : Do you snore loudly (louder than talking or can be heard through closed doors)? 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 Specify any problems Hx of Preganancy in last 3 No 10/19/24 11:10 Months Nurse Filling Out Transfusion DSCHRIBER 10/19/24 11:10 & Questions: Date: 10/19/24 10/19/24 11:10 Time: 11:12 10/19/24 11:10 Patient unable to answer at this time (ie. confused, unrespo /Reproduction History /Reproductive History - launching pad mechanic: /Reproductive Hx- launching pad mechanic Hx Now No 10/19/24 11:10 Gestational Age (in weeks): EDC: Hx Hx Para Hx Section SAB No 10/19/24 11:10 [facility], [facility] Medical History (Updated 10/19/24 @ 11:20 by Jennifer Saldivar) Marijuana use Difficulty swallowing Gastric reflux COPD (chronic obstructive pulmonary disease) Shortness of breath on exertion History of stress test Post-menopausal Easy bruising Injury of head and neck Hoarseness Wears dentures Wears glasses Thyroid disease Arthritis Hepatitis Back pain Smoker History of pain when walking Hx of ovarian cyst Luis Enrique's disease Graves' disease Fibromyalgia Home Medications ?Medication ?Instructions ?Recorded ?Last Taken ?Type duloxetine 30 mg capsule,delayed 30 mg PO DAILY 07/23/21 Unknown History release duloxetine 60 mg capsule,delayed 60 mg PO DAILY 07/23/21 Unknown History release amitriptyline 25 mg tablet 25 - 50 mg PO QHS 02/10/22 Unknown History methimazole 5 mg tablet 15 mg PO DAILY 02/10/22 Unknown History albuterol sulfate 90 mcg/actuation 1 - 2 puff inhalation Q4H PRN PRN 05/15/22 Unknown Rx aerosol inhaler (Ventolin HFA) Wheezing #1 ea aripiprazole 5 mg tablet (Abilify) 10 mg PO DAILY 03/19/23 Unknown History fluticasone fur. 100 mcg-umeclid 1 inh inhalation DAILY 03/19/23 Unknown History 62.5 mcg-vilant 25 mcg inhalat.powder (Trelegy Ellipta) acetaminophen 650 mg 650 mg PO TID 09/10/24 Unknown History tablet,extended release (Tylenol 8 Hour) ibuprofen 800 mg tablet 800 mg PO TID 09/10/24 Unknown History Allergy/AdvReac Type Severity Reaction Status Date / Time levetiracetam (From Keppra) Allergy PANICK Verified 10/19/24 11:07 ATTACKS Penicillins (PCN) Allergy Hives Verified 10/19/24 11:07 pregabalin (From Lyrica) Allergy Other Verified 10/19/24 11:07 zolpidem tartrate (From Allergy Other Verified 10/19/24 11:07 Ambien) Family History (Updated 09/10/24 @ 09:43 by Ingrid Haro) Mother Arthritis Surgical History (Updated 10/19/24 @ 11:20 by Jennifer Saldivar) Hx of tubal ligation Hx laparoscopic cholecystectomy History of surgery Social History (Updated 09/10/24 @ 09:42 by Ingrid Haro) Smoking Status: Current every day smoker tobacco type: cigarettes Tobacco: How many years used: 20 alcohol intake: never substance use type: does not use what type of physical activity do you participate in: walking Audit: Pertinent Findings Pertinent Findings EKG Perinent findings: September 01, 2024. Normal sinus rhythm. Incomplete right bundle branch block. Stress test pertinent findings: May 03, 2023. EF of 79%. Rest and stress SPECT Cardiolite imaging demonstrate uniform tracer uptake and myocardial perfusion appearing within normal limits. Recommendation Anesthesia Recommendation Anesthesia recommendation: OPTIMIZED for anesthesia
[2024-10-23] VITALS (8 sets, daily range): BP systolic 105–120; BP diastolic 60–84; PULSE 53–106; RESP 16–18; TEMP 36.2–37; O2SAT 98–100; BMI 23.8
--- NOTE | 2024-10-23 12:01 | PRE.ANES_ITS ---
ASA Classification* ASA Classification ASA Classification: 3 Assessment & Plan Anesthesia* Anesthesia Assessment Anesthesia Assessment: Discussed sedation and/or anesthesia options, risks, benefits, and alternatives with patient/parents/legal guardian/POA. Questions invited. The patient/parents/legal guardian/POA seems to understand and agrees to proceed with anesthesia plan. Reviewed the physical assessment, medical history, allergy history and patient home medications list prior to surgery/procedure/anesthetic and documented any changes. Performed airway and anesthesia risk assessments. Anesthesia Type Anesthesia Type: MAC History Source History Obtained from:: Patient and Chart Anesthesia Focused Assessment* Temperature: 98.6 F Pulse Rate: 106 Blood Pressure: 109/60 Respiratory Rate: 16 Pulse Ox: 98 Oxygen Delivery Method: Room Air Airway Assessment Mouth opens: >3 cm Mallampati Score: I Teeth Condition: Dentures (Patient has full upper and lower dentures. They are out.) Neck Range of motion (ROM): Full ROM Labs Anesthesia Preop lab: CBC WBC 8.9 K/mm3 (4.4-11.0) 09/10/24 10:14 09/10/24 RBC 4.18 M/mm3 (4.2-5.4) L 09/10/24 10:14 09/10/24 Hgb 13.9 g/dL (12.0-15.0) 09/10/24 10:14 09/10/24 Hct 41.3 % (37-47) 09/10/24 10:14 09/10/24 Plt Count 386 K/mm3 (150-450) 09/10/24 10:14 09/10/24 CHEMISTRY Potassium 3.9 mmol/L (3.3-5.1) 09/10/24 10:14 09/10/24 Sodium 142 mmol/L (133-145) 09/10/24 10:14 09/10/24 BUN 6 mg/dL (4-19) 09/10/24 10:14 09/10/24 Creatinine 0.72 mg/dL (0.70-1.20) 09/10/24 10:14 09/10/24 Glucose 89 mg/dL (70-99) 09/10/24 10:14 09/10/24 TSH 0.087 uIU/mL (0.300-4.200) L 09/10/24 10:14 COAG PT 13.5 SECONDS (11.7-14.9) 04/14/22 23:42 Pre-Assessment Diagnosis/Proposed Procedure Planned Operative Procedure(s): EGD/CSCOPE Anesthesia History 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 When Was Last Pacemaker Check QUESTION #4 FULL TEXT: You/Your Family Experience fever (hyperthermia) with Anesthesia Last Oral Intake Last Oral intake: Last Oral Intake NPO since 08:00 10/23/24 11:47 Meds taken in AM with sips of Yes 10/23/24 11:47 water? Meds patient instructed to duloxetine 10/23/24 11:47 take am of surgery Any additional information?: Yes NPO since: 08:00 (Patient had her a.m. meds with a sip of water at 8 AM.) Meds taken in AM with sips of water?: Yes PONV PONV - powerhouse mechanic apprentice: PONV - powerhouse mechanic apprentice Female Yes 10/19/24 11:10 HX of Motion Sickness No 10/19/24 11:10 HX of N/V After Surgery No 10/19/24 11:10 Non-Smoker No 10/19/24 11:10 Duration of Surgery greater No 10/19/24 11:10 than 60 minutes Number of Risk Factors 1 10/19/24 11:10 PONV Score Low Risk 10/19/24 11:10 Height & Weight Height & Weight: Anesthesia: Height & Weight Height 5 ft 2 in 10/23/24 11:47 Weight: 59 kg 10/23/24 11:47 Body Mass Index (BMI) 23.8 10/23/24 11:47 Respiratory Assessment Respiratory Assessment - powerhouse mechanic apprentice: Respiratory Tract Infection Hx - powerhouse mechanic apprentice Hx Respiratory Tract Infection No 10/19/24 11:10 STOP Sleep Apnea STOP Sleep Apnea - powerhouse mechanic apprentice: STOP Sleep Apnea - powerhouse mechanic apprentice Hx Hypertension No 10/19/24 11:10 Hx Sleep Apnea No 10/19/24 11:10 CPAP No 11/12/22 15:26 BIPAP No 11/11/22 16:31 Do you snore loudly (louder No 10/19/24 11:10 than talking or can be heard Do you often feel tired/ No 10/19/24 11:10 fatigued/ sleepy during daytime? Has anyone observed you stop No 10/19/24 11:10 breathing during sleep? STOP Results Negative 10/19/24 11:10 QUESTION #5 FULL TEXT : Do you snore loudly (louder than talking or can be heard through closed doors)? 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 Specify any problems Hx of Preganancy in last 3 No 10/19/24 11:10 Months Nurse Filling Out Transfusion DSCHRIBER 10/19/24 11:10 & Questions: Date: 10/19/24 10/19/24 11:10 Time: 11:12 10/19/24 11:10 Patient unable to answer at this time (ie. confused, unrespo /Reproduction History /Reproductive History - powerhouse mechanic apprentice: /Reproductive Hx- powerhouse mechanic apprentice Hx Now No 10/19/24 11:10 Gestational Age (in weeks): EDC: Hx Hx Para Hx Section SAB No 10/19/24 11:10 Active Medications Active Medications: Current Medications Generic Name Dose Route Start Last Admin Trade Name Freq PRN Reason Stop Dose Admin Lactated Ringer's 1,000 mls @ 15 mls/hr 10/23/24 11:30 IV .Q48H REYNA PFSH Medical History Marijuana use Difficulty swallowing Gastric reflux COPD (chronic obstructive pulmonary disease) Shortness of breath on exertion History of stress test Post-menopausal Easy bruising Injury of head and neck Hoarseness Wears dentures Wears glasses Thyroid disease Arthritis Hepatitis Back pain Smoker History of pain when walking Hx of ovarian cyst Luis Enrique's disease Graves' disease Fibromyalgia Home Medications ?Medication ?Instructions ?Recorded ?Last Taken ?Type duloxetine 30 mg capsule,delayed 30 mg PO DAILY 10/23/24 History release duloxetine 60 mg capsule,delayed 60 mg PO DAILY 10/23/24 History release amitriptyline 25 mg tablet 25 - 50 mg PO QHS 02/10/22 Unknown History methimazole 5 mg tablet 15 mg PO DAILY 02/10/2209/29 History albuterol sulfate 90 mcg/actuation 1 - 2 puff inhalati on Q4H PRN PRN 05/15/22 Unknown Rx aerosol inhaler (Ventolin HFA) Wheezing #1 ea aripiprazole 5 mg tablet (Abilify) 10 mg PO DAILY 03/01 Unknown History fluticasone fur. 100 mcg-umeclid 1 inh inhalation RENETTA Y 03/19/23 Unknown History 62.5 mcg-vilant 25 mcg inhalat.powder (Trelegy Ellipta) acetaminophen 650 mg 650 mg PO TID 09/10/24 Unkno wn History tablet,extended release (Tylenol 8 Hour) ibuprofen 800 mg tablet 800 mg PO TID 09/10/24 Unkno wn History Allergy/AdvReac Type Severity Reaction Status Date / Time levetiracetam (From Keppra) Allergy PANICK Verified 10/23/24 11:44 ATTACKS Penicillins (PCN) Allergy Hives Verified 10/23/24 11:44 pregabalin (From Lyrica) Allergy Other Verified 10/23/24 11:44 zolpidem tartrate (From Allergy Other Verified 10/23/24 11:44 Ambien) Family History Mother Arthritis Surgical History Hx of tubal ligation Hx laparoscopic cholecystectomy History of surgery Social History Smoking Status: Current every day smoker (Patient smoked today.) tobacco type: cigarettes Tobacco: How many years used: 20 alcohol intake: never substance use type: does not use what type of physical activity do you participate in: walking Review of Systems (Anesthesia) ROS Narrative System reviewed and no additional complaints, except as documented.
--- NOTE | 2024-10-23 12:36 | PCM.HP.STD ---
HPI - General General Date of Admission: 10/23/24 Date of Service: 10/23/24 Chief Complaint: Abdominal pain, melena HPI Narrative BARNEY SANCHEZ, is a 54 F who presents Chief Complaint: black stools [facility] ED 7.5.35 after 7-8 episodes of black tarry diarrhea. Associated with diffuse ab pain. Takes 400 mg of ibuprofen every other day. Endorses lightheaded and dizziness. Hgb 14, BUN normal. Discharged and started on PPI. Pt here today for f/u after ED visit. For about two weeks she had loose stools, one episode of BRBPR and then dark red blood in her stool. She has never had blood in her stool before. She endorses taking 800 mg of ibuprofen and 2000 mg of Tylenol daily for nerve pain. She has not seen any furher blood in her stool since the ED. She always has black stools SHe alternates between constipation and loose stools. She has never had an EGD before. Last colonoscopy was many years ago and she believes she is due for repeat. [facility] Medical History Marijuana use Difficulty swallowing Gastric reflux COPD (chronic obstructive pulmonary disease) Shortness of breath on exertion History of stress test Post-menopausal Easy bruising Injury of head and neck Hoarseness Wears dentures Wears glasses Thyroid disease Arthritis Hepatitis Back pain Smoker History of pain when walking Hx of ovarian cyst Luis Enrique's disease Graves' disease Fibromyalgia Home Medications ?Medication ?Instructions ?Recorded ?Last Taken ?Type duloxetine 30 mg capsule,delayed 30 mg PO DAILY 07/23/21 10/23/24 History release duloxetine 60 mg capsule,delayed 60 mg PO DAILY 07/23/21 10/23/24 History release amitriptyline 25 mg tablet 25 - 50 mg PO QHS 02/10/22 Unknown History methimazole 5 mg tablet 15 mg PO DAILY 02/10/22 10/23/24 History albuterol sulfate 90 mcg/actuation 1 - 2 puff inhalation Q4H PRN PRN 05/15/22 Unknown Rx aerosol inhaler (Ventolin HFA) Wheezing #1 ea aripiprazole 5 mg tablet (Abilify) 10 mg PO DAILY 03/19/23 Unknown History fluticasone fur. 100 mcg-umeclid 1 inh inhalation DAILY 03/19/23 Unknown History 62.5 mcg-vilant 25 mcg inhalat.powder (Trelegy Ellipta) acetaminophen 650 mg 650 mg PO TID 09/10/24 Unknown History tablet,extended release (Tylenol 8 Hour) ibuprofen 800 mg tablet 800 mg PO TID 09/10/24 Unknown History Allergy/AdvReac Type Severity Reaction Status Date / Time levetiracetam (From Keppra) Allergy PANICK Verified 10/23/24 11:44 ATTACKS Penicillins (PCN) Allergy Hives Verified 10/23/24 11:44 pregabalin (From Lyrica) Allergy Other Verified 10/23/24 11:44 zolpidem tartrate (From Allergy Other Verified 10/23/24 11:44 Ambien) Family History Mother Arthritis Surgical History Hx of tubal ligation Hx laparoscopic cholecystectomy History of surgery Social History Smoking Status: Current every day smoker (Patient smoked today.) tobacco type: cigarettes Tobacco: How many years used: 20 alcohol intake: never substance use type: does not use what type of physical activity do you participate in: walking ROS Constitutional Constitutional: Denies fatigue, fever(s), poor appetite, weight gain or weight loss Gastrointestinal Gastrointestinal: Denies belching, bloating, change in bowel habits, change in stool character, chewing difficulty, coffee ground emesis, constipation, cramping, diarrhea, dyspepsia, dysphagia, early satiety, excessive flatus, fecal incontinence, heartburn, hematemesis, hematochezia, hemorrhoids, loose stools, melena, nausea, odynophagia, rectal bleeding, tenesmus, vomiting or weight changes Vital Signs Vital Signs Vital Signs: 10/23/24 11:47 10/23/24 12:12 Temperature 98.6 F 98.6 F Temperature Source Temporal Pulse Rate 106 H 106 H Respiratory Rate 16 16 Blood Pressure 109/60 109/60 Blood Pressure Mean 76 Blood Pressure Source Monitor Blood Pressure Position Sitting Blood Pressure Location Left Arm Pulse Ox 98 98 Oxygen Delivery Method Room Air Room Air Weight Weight: 130 lb 1.164 oz Body Mass Index (BMI) 23.8 Physical Exam Const alert, oriented x3, no apparent distress and healthy appearing General Appearance: cooperative GI normal to inspection, nondistended, normoactive bowel sounds, soft to palpation, non-tender and non-distended Percussion: normal to percussion Rectal Exam: deferred Assessment & Plan Assessment/Plan (1) Loose stools: (2) Melena: PLAN: Assessment and Plan Assessment and Plan (1) Loose stools: Status: Acute Plan: Barney is a 53 yo female pt here today for f/u after ED visit for loose stools. BRBPR and dark blood in her stool. Pt has always had difficulty with her bm alternating from constipation to loose stools. Pt has never had blood in her stool like this. She takes 800 mg of ibuprofen daily. Work up in the ED showed normal hemoglobin and BUN ruling against an acute UGI bleed. FOBT negative. With these findings she was discharged on a PPI. In the office today, she denies any further blood in her stool. Will order repeat CBC to monitor her hgb. I have concern for gastric ulcers as she takes a high dose of NSAIDs daily. I did advise she discuss other ways to manage her pain with her PCP and pain management doctor. She will undergo EGD and colonoscopy. Continue PPI. -EGD -Colonoscopy -Repeat CBC -Decrease NSAID use -Continue PPI -f/u after procedures (2) Black stools: Status: Inactive Orders: Orders CBC W/Diff, Automated Today K92.1 - Melena
--- NOTE | 2024-10-23 12:45 | COLBX_PTH ---
PATIENT: BARNEY SANCHEZ LOC: EN U#:[id number] AGE/SX: 54/F ROOM: RE10/23/[address]: Dr. Arcadio Levy DO : 1970 BED: DIS: 10/23/2024 SPEC #: [id number] RECD: 10/23/24 13:44 STATUS: CLARE REWilliam #: [id number] KIERRA: 10/23/24 12:[address]: Arcadio Levy DEPT: SURGICAL PATHOLOGY RECD BY: Gato Ruano ENTERED: 10/23/24 14:30 SP TYPE: COLON BX OTHR DR: Dr. Matty Panchal MD Tissues: A - Duodenum, NOS B - Gastric mucous membrane C - Esophagus, NOS D - Ileum, NOS E - Cecum, NOS F - COLON BIOPSY G - Sigmoid colon biopsy Procedures: Immunohistochemical Stains Surgery Specimen Level IV IHC Stain ADDITIONAL HEADER OPERATION: Colonoscopy with biopsy and polypectomy, EGD with biopsy PRE-OP DIAGNOSIS: Loose stools, melena TISSUE SUBMITTED: A- Duodenum biopsy, B- Gastric body biopsy, C- Distal esophagus biopsy, D- Terminal ileum biopsy, E- Cecal polyp biopsy, F- Random colon biopsy, G- Sigmoid polyp x3 MICROSCOPIC DIAGNOSIS A. Duodenum, biopsy: - Jon gland hyperplasia and gastric mucin cell metaplasia, suggestive of peptic injury. B. Gastric body, biopsy: - Oxyntic mucosa with features of reactive gastropathy. - IHC negative for H. pylori organisms. C. Distal esophagus, biopsy: - Squamous and columnar mucosa with reactive changes, negative for goblet cell metaplasia. D. Terminal ileum, biopsy: - Prominent mucosal lymphoid tissue, favor reactive - see note. Note: Further evaluation utilizing IHC and BELIA stains was performed. There is a mixture of CD3+CD5+ T-lymphocytes and CD20+ B-lymphocytes. CD10 highlights the germinal centers which are negative for BCL2 and positive for BCL6. CD23 highlights the follicular dendritic meshworks. BCL1 is negative. Ki67 is appropriately high within the germinal centers and low in the interfollicular zones. BELIA for kappa and lambda light chains is polytypic with a ratio of approximately 3:2. These findings support the above diagnosis. Clinical correlation is recommended. E. Cecum, polyp, biopsy: - Tubular adenoma. F. Colon, random, biopsy: - No specific pathologic change. - The histologic features of microscopic colitis are not demonstrated. G. Sigmoid colon, polyp, biopsy: - Hyperplastic polyp. MICROSCOPIC DESCRIPTION Slides are reviewed. All matched controls reacted appropriately. These tests were developed and their performance characteristics determined by [facility]. They may not have been cleared or approved by the U.[place]. Food and Drug Administration. The FDA has determined that such clearance or approval is not necessary. The above immunohistochemical/dualISH markers are reviewed by the Pathologist. GROSS DESCRIPTION A. Received in fixative is one container labeled with the patient's name and designated Duodenum biopsy. The specimen consists of three irregular fragments of light gan soft tissue that measure 0.3 to 0.5 cm. The specimen is totally submitted in one cassette. B. Received in fixative is one container labeled with the patient's name and designated Gastric body biopsy. The specimen consists of three irregular fragments of light gan soft tissue that measure 0.2 to 1 cm. The specimen is totally submitted in one cassette. C. Received in fixative is one container labeled with the patient's name and designated Distal esophagus biopsy. The specimen consists of multiple irregular fragments of light gan soft tissue that in aggregate measure 0.5 x 0.5 x 0.1 cm. The specimen is totally submitted in one cassette. D. Received in fixative is one container labeled with the patient's name and designated Terminal ileum biopsy. The specimen consists of four irregular fragments of light gan soft tissue that measure 0.2 to 0.7 cm. The specimen is totally submitted in one cassette. E. Received in fixative is one container labeled with the patient's name and designated Cecal polyp biopsy. The specimen consists of one irregular fragment of light gan soft tissue that measures 0.3 cm. The specimen is totally submitted in one cassette. F. Received in fixative is one container labeled with the patient's name and designated Random colon biopsy. The specimen consists of multiple irregular fragments of light gan soft tissue that in aggregate measure 1.7 x 0.5 x 0.1 cm. The specimen is totally submitted in one cassette. G. Received in fixative is one container labeled with the patient's name and designated Sigmoid polyp x3. The specimen consists of three irregular fragments of light gan soft tissue, each measuring 0.3 cm. The specimen is totally submitted in one cassette. OR 10/23/2024 CPT:[id number]
[2024-10-23] MEDS: Lactated Ringers 500 ML IV (12:54)
--- NOTE | 2024-10-23 13:29 | OP.PROVAT_ITS ---
10/23/2024 Jim Panchal [address] [place] [address] Re : Upper GI endoscopy procedure for Lenore Stephens Dear Dr. Panchal This procedure was performed on Wednesday, October 23, 2024. My impressions and recommendations are as follows: Impressions : - Abnormal esophageal motility. - Non-severe chronic esophagitis with no bleeding. Biopsied. - Erythematous mucosa in the gastric body. Biopsied. - Erythematous duodenopathy. Biopsied. Recommendations : - Discharge patient to home. - Resume previous diet. - Continue present medications. - Await pathology results. -Omeprazole 40 mg p.o. twice daily x 2 months My findings are described in the full procedure note, which is enclosed. If I can be of further assistance, please feel free to contact me at . Sincerely, Arcadio Levy, 10/23/2024 1:28:48 PM This report has been signed electronically.
--- NOTE | 2024-10-23 13:29 | OP.EGD_ITS ---
Patient Name: Lenore Stephens Procedure Date: 10/23/2024 12:37 PM Date of : 1970 Age: 54 Procedure: Upper GI endoscopy Indications: Epigastric abdominal pain, Dysphagia Providers: Arcadio Levy DO Referring MD: Jim Panchal Medicines: Monitored Anesthesia Care Patient Profile: This is a 54 year old female. Refer to note in patient chart for documentation of history and physical. Patient has symptoms of chronic cough and dysphagia with both liquids and solids. Complications: No immediate complications. Procedure: Pre-Anesthesia Assessment: - Prior to the procedure, a History and Physical was performed, and patient medications and allergies were reviewed. The patient is competent. The risks and benefits of the procedure and the sedation options and risks were discussed with the patient. All questions were answered and informed consent was obtained. Patient identification and proposed procedure were verified by the physician in the pre-procedure area. Mental Status Examination: alert and oriented. Airway Examination: normal oropharyngeal airway and neck mobility. Respiratory Examination: clear to auscultation. CV Examination: normal. Prophylactic Antibiotics: The patient does not require prophylactic antibiotics. Prior Anticoagulants: The patient has taken no anticoagulant or antiplatelet agents except for NSAID medication. ASA Grade Assessment: II - A patient with mild systemic disease. After reviewing the risks and benefits, the patient was deemed in satisfactory condition to undergo the procedure. The anesthesia plan was to use monitored anesthesia care (MAC). Immediately prior to administration of medications, the patient was re-assessed for adequacy to receive sedatives. The heart rate, respiratory rate, oxygen saturations, blood pressure, adequacy of pulmonary ventilation, and response to care were monitored throughout the procedure. The physical status of the patient was re-assessed after the procedure. After obtaining informed consent, the endoscope was passed under direct vision. Throughout the procedure, the patient's blood pressure, pulse, and oxygen saturations were monitored continuously. The Colonoscope was introduced through the mouth, and advanced to the third part of the duodenum. Small bowel enteroscopy was deemed necessary. The upper GI endoscopy was accomplished without difficulty. The patient tolerated the procedure well. Scope In: 12:45:19 PM Scope Out: 12:51:34 PM Total Procedure Duration Time 0 hours 6 minutes 15 seconds Findings: Abnormal motility was noted in the esophagus. The cricopharyngeus was abnormal. There are extra peristaltic waves in the esophageal body. The distal esophagus/lower esophageal sphincter is spastic, but gives up passage to the endoscope. Secondary peristaltic waves are noted. Non-severe esophagitis with no bleeding was found 38 to 39 cm from the incisors. Biopsies were taken with a cold forceps for histology. Verification of patient identification for the specimen was done. Estimated blood loss was minimal. Patchy mildly erythematous mucosa without bleeding was found in the gastric body. Biopsies were taken with a cold forceps for histology. Biopsies were taken with a cold forceps for Helicobacter pylori testing. Verification of patient identification for the specimen was done. Estimated blood loss was minimal. Patchy mildly erythematous mucosa without active bleeding and with no stigmata of bleeding was found in the duodenal bulb. Biopsies were taken with a cold forceps for histology. Verification of patient identification for the specimen was done. Estimated blood loss was minimal. Impression: - Abnormal esophageal motility. - Non-severe chronic esophagitis with no bleeding. Biopsied. - Erythematous mucosa in the gastric body. Biopsied. - Erythematous duodenopathy. Biopsied. Recommendation: - Discharge patient to home. - Resume previous diet. - Continue present medications. - Await pathology results. -Omeprazole 40 mg p.o. twice daily x 2 months Procedure Code(s): --- Professional --- 82751, Small intestinal endoscopy, enteroscopy beyond second portion of duodenum, not including ileum; with biopsy, single or multiple CPT copyright 2021 [employer]. All rights reserved. The codes documented in this report are preliminary and upon planting material unloader review may be revised to meet current compliance requirements. Arcadio Levy DO 10/23/2024 1:28:48 PM This report has been signed electronically. Number of Addenda: 0 Note Initiated On: 10/23/2024 12:37 PM
--- NOTE | 2024-10-23 13:33 | OP.COLON_ITS ---
Patient Name: Lenore Stephens Procedure Date: 10/23/2024 12:51 PM Date of : 1970 Age: 54 Procedure: Colonoscopy Indications: Chronic diarrhea Providers: Arcadio Levy DO Referring MD: Jim Panchal Medicines: Monitored Anesthesia Care Patient Profile: This is a 54 year old female. Refer to note in patient chart for documentation of history and physical. Patient has symptoms of chronic cough and dysphagia with both liquids and solids. Last Colonoscopy: several years ago. Complications: No immediate complications. Procedure: Pre-Anesthesia Assessment: - Prior to the procedure, a History and Physical was performed, and patient medications and allergies were reviewed. The patient is competent. The risks and benefits of the procedure and the sedation options and risks were discussed with the patient. All questions were answered and informed consent was obtained. Patient identification and proposed procedure were verified by the physician in the pre-procedure area. Mental Status Examination: alert and oriented. Airway Examination: normal oropharyngeal airway and neck mobility. Respiratory Examination: clear to auscultation. CV Examination: normal. Prophylactic Antibiotics: The patient does not require prophylactic antibiotics. Prior Anticoagulants: The patient has taken no anticoagulant or antiplatelet agents except for NSAID medication. ASA Grade Assessment: II - A patient with mild systemic disease. After reviewing the risks and benefits, the patient was deemed in satisfactory condition to undergo the procedure. The anesthesia plan was to use monitored anesthesia care (MAC). Immediately prior to administration of medications, the patient was re-assessed for adequacy to receive sedatives. The heart rate, respiratory rate, oxygen saturations, blood pressure, adequacy of pulmonary ventilation, and response to care were monitored throughout the procedure. The physical status of the patient was re-assessed after the procedure. After I obtained informed consent, the scope was passed under direct vision. Throughout the procedure, the patient's blood pressure, pulse, and oxygen saturations were monitored continuously. The Colonoscope was introduced through the anus and advanced to the terminal ileum. The colonoscopy was performed without difficulty. The patient tolerated the procedure well. The quality of the bowel preparation was adequate. The terminal ileum, ileocecal valve, appendiceal orifice, and rectum were photographed. Scope In: 12:52:49 PM Scope Withdrawal Time 0 hours 22 minutes 8 seconds Scope Out: 1:20:53 PM Total Procedure Duration Time 0 hours 28 minutes 4 seconds Findings: The perianal and digital rectal examinations were normal. Four sessile polyps were found in the sigmoid colon and splenic flexure. The polyps were 8 mm in size. These polyps were removed with a hot snare. Resection and retrieval were complete. Verification of patient identification for the specimen was done. Estimated blood loss was minimal. An area of mildly congested mucosa was found in the transverse colon, at the hepatic flexure, in the ascending colon and in the cecum. Biopsies were taken with a cold forceps for histology. Verification of patient identification for the specimen was done. Estimated blood loss was minimal. Multiple small-mouthed diverticula were found in the recto-sigmoid colon and sigmoid colon. A patchy area of the terminal ileum was congested. Biopsies were taken with a cold forceps for histology. Verification of patient identification for the specimen was done. Estimated blood loss was minimal. Impression: - Four 8 mm polyps in the sigmoid colon and at the splenic flexure, removed with a hot snare. Resected and retrieved. - Congested mucosa in the transverse colon, at the hepatic flexure, in the ascending colon and in the cecum. Biopsied. - Diverticulosis in the recto-sigmoid colon and in the sigmoid colon. - Congested mucosa in the terminal ileum. Biopsied. Recommendation: - Discharge patient to home. - Resume previous diet. - Continue present medications. - Await pathology results. - Repeat colonoscopy in 5 years for surveillance. Procedure Code(s): --- Professional --- 66507, Colonoscopy, flexible; with removal of tumor(s), polyp(s), or other lesion(s) by snare technique 67867, 59, Colonoscopy, flexible; with biopsy, single or multiple CPT copyright 2021 [employer]. All rights reserved. The codes documented in this report are preliminary and upon interventional sale consultant review may be revised to meet current compliance requirements. Arcadio Levy DO 10/23/2024 1:32:45 PM This report has been signed electronically. Number of Addenda: 0 Note Initiated On: 10/23/2024 12:51 PM
--- NOTE | 2024-10-23 13:33 | OP.PROVAT_ITS ---
10/23/2024 Jim Panchal [address] [place] [address] Re : Colonoscopy procedure for Lenore Stephens Dear Dr. Panchal This procedure was performed on Wednesday, October 23, 2024. My impressions and recommendations are as follows: Impressions : - Four 8 mm polyps in the sigmoid colon and at the splenic flexure, removed with a hot snare. Resected and retrieved. - Congested mucosa in the transverse colon, at the hepatic flexure, in the ascending colon and in the cecum. Biopsied. - Diverticulosis in the recto-sigmoid colon and in the sigmoid colon. - Congested mucosa in the terminal ileum. Biopsied. Recommendations : - Discharge patient to home. - Resume previous diet. - Continue present medications. - Await pathology results. - Repeat colonoscopy in 5 years for surveillance. My findings are described in the full procedure note, which is enclosed. If I can be of further assistance, please feel free to contact me at . Sincerely, Arcadio Levy, 10/23/2024 1:32:45 PM This report has been signed electronically.
--- NOTE | 2024-10-23 14:21 | PCM.POST.ANE ---
Anesthesia: Postop Eval I Current Vital Signs Temperature: 97.1 F Pulse Rate: 68 Blood Pressure: 113/77 Respiratory Rate: 18 Pulse Ox: 100 Oxygen Delivery Method: Room Air Assessment Airway patent: Yes Spontaneous unlabored respirations: Yes Mental status: Awake nausea: No Vomiting: No Anesthesia Complication: No Fluid Hydration Crystalloid volume administer (ml): 500 Total IV fluid infused: 500 Progress Note Anesthesia document: Postop Eval 1 completed: Yes
--- NOTE | 2024-10-23 16:37 | POSTOPAN2_ITS ---
Anesthesia Postop Eval I Sum Postop Eval Completion status Anesthesia document: Postop Eval 1 completed: Yes Anesthesia Postop Eval I Summary Anesthesia Postop Eval I Summary: Anesthesia Postop Eval I: Assessment Summary Airway patent Yes 10/23/24 14:21 [email or web address] Spontaneous unlabored Yes 10/23/24 14:21 GLASS [email or web address] respirations Mental status Awake 10/23/24 14:21 GLASS [email or web address] nausea No 10/23/24 14:21 GLASS [email or web address] Vomiting No 10/23/24 14:21 GLASS [email or web address] Anesthesia Postop Eval I: Fluid Summary Crystalloid volume administer 500 10/23/24 14:21 GLASS [email or web address] (ml) Colloids volume administered ( ml) Blood Product volume administered (ml) Total IV fluid infused 500 10/23/24 14:21 GLASS [email or web address] Anesthesia Postop Eval I: Summary Notes Anesthesia Complication No 10/23/24 14:21 GLASS [email or web address] Anesthesia Complication Comment: Post-operative progress note Anesthesia: Postop Eval II Evaluation Mental status: Awake and Calm Pain Level: 0 nausea: No Vomiting: No Complications Anesthesia Complication: No
--- NOTE | 2024-10-23 16:37 | PCM.POSTANE2 ---
Anesthesia Postop Eval I Sum Postop Eval Completion status Anesthesia document: Postop Eval 1 completed: Yes Anesthesia Postop Eval I Summary Anesthesia Postop Eval I Summary: Anesthesia Postop Eval I: Assessment Summary Airway patent Yes 10/23/24 14:21 SYSTEM ADMINISTRATION ADVISOR.[email or web address] Spontaneous unlabored Yes 10/23/24 14:21 SYSTEM ADMINISTRATION ADVISOR.ACAR respirations Mental status Awake 10/23/24 14:21 SYSTEM ADMINISTRATION ADVISOR.ACAR nausea No 10/23/24 14:21 SYSTEM ADMINISTRATION ADVISOR.ACAR Vomiting No 10/23/24 14:21 SYSTEM ADMINISTRATION ADVISOR.ACAR Anesthesia Postop Eval I: Fluid Summary Crystalloid volume administer 500 10/23/24 14:21 SYSTEM ADMINISTRATION ADVISOR.ACAR (ml) Colloids volume administered ( ml) Blood Product volume administered (ml) Total IV fluid infused 500 10/23/24 14:21 SYSTEM ADMINISTRATION ADVISOR.ACAR Anesthesia Postop Eval I: Summary Notes Anesthesia Complication No 10/23/24 14:21 SYSTEM ADMINISTRATION ADVISOR.ACAR Anesthesia Complication Comment: Post-operative progress note Anesthesia: Postop Eval II Evaluation Mental status: Awake and Calm Pain Level: 0 nausea: No Vomiting: No Complications Anesthesia Complication: No
== END 2024-10-23 14:00 | disposition home or self-care (01) ==
LOC: EN 11:20 → AC 11:21
PROVIDERS: PCP Family Medicine; Referring Provider Family Medicine; Visit Provider Internal Medicine Gastroenterology
PROC: 0DJD8ZZ Inspection of Lower Intestinal Tract, Via Natural or Artificial Opening Endoscopic (ICD-10-PCS; CPT 45378; principal; 2024-10-23 12:40)
DX: K31.A19 Gastric intestinal metaplasia without dysplasia, unspecified site (principal); J44.9 Chronic obstructive pulmonary disease, unspecified; K21.00 Gastro-esophageal reflux disease with esophagitis, without bleeding; R42 Dizziness and giddiness; K63.5 Polyp of colon; K57.30 Diverticulosis of large intestine without perforation or abscess without bleeding; Z79.899 Other long term (current) drug therapy; F17.210 Nicotine dependence, cigarettes, uncomplicated; D12.0 Benign neoplasm of cecum
CPT/HCPCS: 44361; 45385; 45380; 88305; 88341; 88342; J2405

== ENCOUNTER → 2024-11-06 | Outpatient (CLI) | payer MEDICARE, MEDICAID, SELFPAY ==
[2024-11-06 14:03] LABS: Free T3 5.3 pg/mL (2.18-3.98)
== END | disposition home or self-care (01) ==
LOC: MTLAB 09:40
PROVIDERS: PCP Family Medicine; Referring Provider Family Medicine; Visit Provider Family Medicine
DX: E05.80 Other thyrotoxicosis without thyrotoxic crisis or storm (principal)
CPT/HCPCS: 36415; 84439; 84443; 84481

== ENCOUNTER → 2024-12-21 | Outpatient (CLI) | payer MEDICARE, MEDICAID, SELFPAY ==
[2024-12-21 15:04] LABS: Hematocrit 36.8 % (37-47); Hemoglobin 12.3 g/dL (12.0-15.0); Immature Granulocytes Count 0.000 X10^3/uL (0.0-0.0); Mean Corp Hgb Conc 33.4 g/dL (32-36); Mean Corpuscular Volume 93.9 fL (81-99); Mean Platelet Vol. 8.3 fl (6.2-12.0); NRBC Flagged by Analyzer 0 % (0-5); Platelet Count 309 K/mm3 (150-450); RBC Distribution Width CV 13.2 % (11.6-14.6); RBC Distribution Width SD 45.1 fl (35.1-43.9); Red Blood Count 3.92 M/mm3 (4.2-5.4); White Blood Count 5.4 K/mm3 (4.4-11.0)
[2024-12-21 15:30] LABS: AST(SGOT) 17 U/L (<=31); Alanine Aminotransfer ALT/SGPT 14 U/L (<=34); Albumin, Serum 4.1 g/dL (3.5-5.0); Alkaline Phosphatase 132 U/L (35-104); Anion Gap 12 (5-15); BUN 8 mg/dL (4-19); BUN/Creat Ratio 11.5 RATIO (10-20); Calcium,Total 8.7 mg/dL (7.6-11.0); Carbon Dioxide 23.7 mmol/L (21.0-32.0); Chloride 99 mmol/L (98-108); Globulin 2.4 g/dL (2.2-4.2); Glucose 128 mg/dL (70-99); Potassium 4.2 mmol/L (3.3-5.1)
[2024-12-21 15:32] LABS: Free T3 5.0 pg/mL (2.18-3.98)
== END | disposition home or self-care (01) ==
LOC: MTLAB 12:36
PROVIDERS: PCP Family Medicine; Referring Provider Internal Medicine Endocrinology, Diabetes & Metabolism; Visit Provider Internal Medicine Endocrinology, Diabetes & Metabolism
DX: E05.90 Thyrotoxicosis, unspecified without thyrotoxic crisis or storm (principal)
CPT/HCPCS: 36415; 80053; 84439; 84443; 84481; 85025